=== PATIENT | male | born 1935 | race Caucasian/White ===

== ENCOUNTER 2019-10-30 13:27 | Inpatient (IN) | payer MEDICARE, SELFPAY ==
[2019-10-30] VITALS (7 sets, daily range): BP systolic 122–170; BP diastolic 63–82; PULSE 69–83; RESP 12–21; TEMP 36.3–37.1; O2SAT 96–98; BMI 29.1
--- NOTE | ~2019-10-30 | XR_ITS ---
XR chest 1V DATE: 10/30/2019 14:17 INDICATION: Cough TECHNIQUE: AP chest 08/27/2018 COMPARISON: Two-view chest FINDINGS: Heart size is normal. There is mild aortic tortuosity. No hilar or mediastinal enlargement. Mild atelectasis or fibrotic changes suggested in the lower lung zones. No pleural effusion, pulmonary vascular congestion or pneumothorax is detected. Prominently widened right acromioclavicular space. Moderate osteopenia. There is scoliosis and degene rative spurring of the thoracic and lumbar spine. Surgical clips, right upper quadrant, consistent with cholecystectomy. IMPRESSION: Mild atelectasis or fibrotic change at the lung bases Reviewed, dictated and finalized at location A.
--- NOTE | ~2019-10-30 | CT_ITS ---
EXAMINATION: CT brain wo con INDICATION: Facial droop and slurred speech COMPARISON: 11/28/2013 TECHNIQUE: Standard unenhanced head CT. The dose-length product (DLP) was 605.33 mGy-cm. The mA was a djusted according to patient size. Iterative reconstruction technique was employed. FINDINGS: There is no acute intraparenchymal hemorrhage. No evidence of mass lesion. Areas of low att enuation in the bilateral basal ganglia are consistent with lacunar infarctions.. There is mild periv entricular and subcortical hypodensity probably related to small vessel ischemic disease. There is mi ld prominence of the sulci and ventricles related to cerebral atrophy. Intracranial calcified cerebra l atherosclerosis is noted. There are no extra-axial collections. There is no mass effect or midline shift. Changes in the globes are likely from ocular lens surgery. The visualized sinuses and mastoid air cells are well aerated. IMPRESSION: 1. Areas of prior lacunar infarction in the basal ganglia without definite acute intracranial abnorma lity. 2. Age related findings. Reviewed, dictated and finalized at location A. IMPRESSION: 1. Areas of prior lacunar infarction in the basal ganglia without definite acut e intracranial abnormality. 2. Age related findings.
--- NOTE | ~2019-10-30 | MR_ITS ---
EXAMINATION: MR brain/brain stem wo/w con DATE: 10/31/2019 10:23 INDICATION: Stroke presenting with left sided facial droop and slurred speech TECHNIQUE: Magnetic resonance imaging (MRI) of the brain and brainstem was performed without and with 17 mL Multihance intravenous contrast. Sequences included sagittal and axial T1-weighted SE, axial d iffusion-weighted FS SE, axial T2*-weighted GRE, axial T2-weighted FLAIR, and axial T2-weighted FSE. Postcontrast axial and coronal T1-weighted SE was obtained. Apparent diffusion coefficient (ADC) maps were created. COMPARISON: Brain MR dated 09/01/2011 FINDINGS: Small region of restricted diffusion in the right cruz radiata consistent with acute infarct. There are multiple additional small region of encephalomalacia consistent with chronic lacunar infarcts in the white matter of the bilateral cruz radiata and centrum semiovale, right thalamus, posterior li mb of the left internal capsule and bilateral cerebellar hemispheres. No intracranial hemorrhage or a bnormal intracranial mass lesion. There are scattered areas of nonspecific increased T2-weighted sign al intensity in the cerebral white matter, predominantly involving the deep and periventricular white matter. There are no intraparenchymal signal abnormalities seen on the other pulse sequences. Symmet reagan prominence of the sulci consistent with mild age-appropriate diffuse cerebral volume loss. The v entricles are symmetric and normal in size. There are no abnormal extra-axial fluid collections. Flow voids are seen in the cerebral arteries on the T2-weighted sequences consistent with their expected patency. Changes of bilateral intraocular lens replacement. Mild mucosal thickening the bilateral eth moid sinuses. Small right maxillary sinus. Visualized orbits and soft tissues are unremarkable. There are no areas of abnormal enhancement on the post contrast images. IMPRESSION: 1. Small acute lacunar infarct in the posterior right frontal lobe cruz radiata. 2. Multiple additional scattered small old lacunar infarcts in the bilateral cruz radiata, centrum semiovale, right thalamus, posterior limb of the left internal capsule and bilateral cerebellar hemis pheres. 3. Interval progression of now moderate scattered nonspecific cerebral white matter T2 hyperintensity consistent with chronic small vessel ischemic disease. Reviewed, dictated and finalized at location A. IMPRESSION: 1. Small acute lacunar infarct in the posterior right frontal lobe cruz radia ta. 2. Multiple additional scattered small old lacunar infarcts in the bilateral co caleb radiata, centrum semiovale, right thalamus, posterior limb of the left int ernal capsule and bilateral cerebellar hemispheres. 3. Interval progression of now moderate scattered nonspecific cerebral white ma tter T2 hyperintensity consistent with chronic small vessel ischemic disease.
--- NOTE | ~2019-10-30 | US_ITS ---
EXAMINATION: US carotid duplex BI DATE: 10/31/2019 11:34 INDICATION: CVA TECHNIQUE: Grayscale, color Doppler, and pulsed Doppler images of the cervical carotid arteries were obtained. The degree of vessel stenosis is placed in one of the following categories: normal, <50%, 5 0-69%, >=70% but less than near-occlusion, near-occlusion, or total occlusion. Note that percent sten osis relative to normal distal artery lumen diameter is indirectly measured from velocity measurement s as described by Husam, et al. Radiology 2003; 229:340-346. Notes: Normal: Peak systolic velocity <125 centimeters/sec and no plaque <50%. Peak systolic velocity <125 ( EDV <40; ICA/CCA PSV ratio <2.0; used these factors only a tandem lesions or low cardiac output or co ntralateral disease) 50-69 %: PSV 125-230 (EDV 40-100; ratio 2-4) >= 70% but less than near occlusion: PSV greater than 230 (EDV > 100; ratio> 4.0) Near Occlusion: PSV that is variable; markedly narrowed lumen Occlusion: Absent flow on color/spectral Doppler and no lumen on flores scale. COMPARISON: None. FINDINGS: RIGHT: The right common carotid artery (CCA) peak systolic velocity (PSV) is 102 cm/s. The right internal ca rotid artery (ICA) PSV is 141 cm/s. The right ICA end-diastolic velocity (EDV) is 26 cm/s. The right ICA/CCA PSV ratio is 1.4. The external carotid artery (ECA) PSV is 127 cm/s. There is antegrade flow in the right vertebral artery. LEFT: The left CCA PSV is 109 cm/s. The left ICA PSV is 86 cm/s. The left ICA EDV is 22 cm/s. The left ICA/ CCA PSV ratio is 0.8. The ECA PSV is 81 cm/s. There is antegrade flow in the left vertebral artery. IMPRESSION: 1. 50-69% stenosis in the right internal carotid artery by sonographic criteria. 2. Less than 50% stenosis in the left internal carotid artery by sonographic criteria. Reviewed, dictated and finalized at location A. IMPRESSION: 1. 50-69% stenosis in the right internal carotid artery by sonographic criteria . 2. Less than 50% stenosis in the left internal carotid artery by sonographic cr iteria.
--- NOTE | 2019-10-30 13:28 | ECG_ITS ---
Measurements Intervals [place] Rate: 84 P: 25 NV: 176 QRS: -74 QRSD: 96 T: 62 QT: 338 QTc: 400 Interpretive Statements SINUS RHYTHM LOW QRS VOLTAGE IN PRECORDIAL LEADS LEFT ANTERIOR FASCICULAR BLOCK BASELINE ARTIFACT- I, III, AVR, AVL, AVF, V1 ABNORMAL ECG Electronically Signed On 10-30-2019 15:50:58 CDT by Tommy Kaye D.O.
[2019-10-30 13:58] LABS: Basophils Percent Auto 0.5 % (0.2-1.2); Eosinophils Absolute Auto 0.2 K/mm3 (0-0.3); Eosinophils Percent Auto 2.5 % (0-4.4); Hematocrit 41.9 % (42.0-52.0); Hemoglobin 13.9 g/dL (14.0-18.0); Immature Granulocyte Absolute 0.01 K/mm3 (0.00-0.031); Immature Granulocyte Percent A 0.2 % (0-0.5); Lymphocytes Absolute Auto 1.18 K/mm3 (0.9-3.2); Lymphocytes Percent Auto 19.6 % (18.3-44.2); Mean Corpuscular HGB Conc 33.2 g/dl (32-36); Mean Corpuscular Hemoglobin 31.2 pg (26-34); Mean Corpuscular Volume 94.2 fl (80-100); Monocytes Absolute Auto 0.4 K/mm3 (0.1-0.6); Monocytes Percent Auto 7.3 % (2.6-8.5); Neutrophils Absolute Auto 4.2 K/mm3 (1.3-6.7); Neutrophils Percent Auto 69.9 % (45.5-73.1); Platelet Count Result 205 k/mm3 (150-375); Red Blood Count 4.45 M/mm3 (4.6-6.20); Red Cell Distribution Width 13.8 % (11.5-14.5)
[2019-10-30 14:01] LABS: Glucose Point of Care 114 (65-105)
[2019-10-30 14:08] LABS: Partial Thromboplastin Time 27.5 SECONDS (22.3-36.8); Prothrombin Time 12.8 Seconds (11.1-14.7)
[2019-10-30 14:20] LABS: Alanine Aminotransferase 17 U/L (4-50); Albumin Level 4.3 g/dL (3.5-5.1); Alkaline Phosphatase 40 U/L (38-126); Anion Gap 8 mmol/L (8-16); Aspartate Amino Transferase 22 U/L (17-59); Bilirubin,Total 0.4 mg/dL (0.2-1.3); Blood Urea Nitrogen 21 mg/dL (9-20); Calcium 9.2 mg/dL (8.4-10.2); Carbon Dioxide 23 mmol/L (22-30); Chloride 110 mmol/L (98-107); Creatine Kinase 67 U/L (55-170); Estimated CRCL calculation 55 ml/min; Estimated Glomerular Filt Rate > 60; Glucose 119 mg/dL (75-110); Potassium 4.1 mmol/L (3.4-5.0); Sodium 141 mmol/L (137-145)
[2019-10-30 14:31] LABS: NT Pro B Type Natriuretic Pept 968 PG/ML (5-100); Troponin I 0.014 ng/mL (0.000-0.034)
[2019-10-30 15:11] LABS: Add Urine Microscopic? YES; Appearance Urine Clear (Clear); Bilirubin Urine Negative (Negative); Blood Urine Negative (Negative); Color Urine Yellow (Yellow); Glucose Urine UA Negative (Negative); Ketones Urine Negative (Negative); Leukocyte Esterase Ur Negative LEU/UL (Negative); Mucus Urine Rare /lpf; Nitrate Urine Negative (Negative); Protein Urine Negative (Negative); RBC Urine 0-2 /hpf (0-2); Specific Grav Ur 1.021 (1.001-1.035); Squamous Epithelial Cell Urine Rare /hpf (Few); WBC Urine 0-3 /hpf
--- NOTE | 2019-10-30 15:31 | ED.GENADULT ---
HPI - General Adult General Chief complaint: Neuro Symptoms/Deficit <James Delgado PA-C - Last Filed: 10/30/19 15:40> Stated complaint: left sided facial droop, slurred speech <ABDULAZIZ Diaz Last Filed: 10/30/19 15:40> Time Seen by Provider: 10/30/19 13:34 <ABDULAZIZ Diaz Last Filed: 10/30/19 15:40> Source: patient and family <ABDULAZIZ Diaz Last Filed: 10/30/19 15:40> Mode of arrival: ambulatory <ABDULAZIZ Diaz Last Filed: 10/30/19 15:40> Limitations: no limitations <ABDULAZIZ Diaz Last Filed: 10/30/19 15:40> History of Present Illness HPI narrative: Patient is an 83-year-old male who presents to emergency department for evaluation of possible strokelike symptoms for the last 2 days patient lives at home by himself and family noticed that he was slurring some of his words presents with daughter who believes he may have some slight drooping at the angle of the left mouth. Patient on arrival is alert and oriented x3 denies any vomiting diarrhea chest pain headache dizziness patient denies similar occurrence in the past. Or any recent illness patient otherwise resting comfortably. <ABDULAZIZ Diaz Last Filed: 10/30/19 15:40> Related Data Home medications: Home Medications Medication Instructions Recorded Confirmed PreserVision AREDS-2 2 tablet PO DAILY 02/15/19 02/15/19 Prilosec OTC 20 mg PO USEASDIRECTD 02/15/19 02/15/19 aspirin 81 mg PO DAILY 02/15/19 02/15/19 fenofibrate 160 mg PO DAILY 02/15/19 02/15/19 hydrocodone-acetaminophen 1 - 2 tablet PO Q12H PRN 02/15/19 02/15/19 lorazepam 0.5 mg PO HS 02/15/19 02/15/19 meloxicam 15 mg PO DAILY 02/15/19 02/15/19 metformin 1,500 mg PO DAILY 02/15/19 02/15/19 omega 6-cke-xjl-fish oil [Fish Oil] 1 cap PO DAILY 02/15/19 02/15/19 tamsulosin 0.4 mg PO DAILY 02/15/19 02/15/19 vitamin B complex [B-Complex] 1 tablet PO DAILY 02/15/19 02/15/19 <James Delgado PA-C - Last Filed: 10/30/19 15:40> Allergies/adverse reactions: Allergies Allergy/AdvReac Type Severity Reaction Status Date / Time No Known Allergies Allergy Verified 10/30/19 13:35 <James Delgado PA-C - Last Filed: 10/30/19 15:40> Review of Systems Review of Systems: All systems reviewed & are unremarkable except as noted in HPI and below <James Delgado PA-C - Last Filed: 10/30/19 15:40> [facility] Past Medical History Medical History: Medical History Anxiety Arthritis BPH (benign prostatic hyperplasia) Bronchitis CVA (cerebral vascular accident) No residual DDD (degenerative disc disease) Diabetes mellitus Diverticulosis GERD (gastroesophageal reflux disease) HLD (hyperlipidemia) Kidney stones Left foot drop Macular degeneration PVD (peripheral vascular disease) Right rotator cuff tear Seasonal allergies <James Delgado PA-C - Last Filed: 10/30/19 15:40> Surgical History Surgical History: Surgical History H/O bilateral cataract extraction H/O inguinal hernia repair H/O repair of right rotator cuff History of back surgery X3 Status post laparoscopic cholecystectomy <James Delgado PA-C - Last Filed: 10/30/19 15:40> Social History Social History: Social History Social History: The patient is . He served in the . 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 Leonarda Isbell is his durable power erisa attorney. He wishes to be a full code Smoking packs per day: 3 Smoking cigarettes per day: 60.0 Years smoked: 38 Smoking pack-years: 114.00 Smoking status: Former smoker Tobacco type: cigarettes Alcohol intake: never Substance use: never Gender identity (if verbalized by the patient): Male Spiritual care concerns: No Agree to blood products: Yes <James Delgado
--- NOTE | 2019-10-30 15:47 | PC.NURSE ---
food tray has been ordered
[2019-10-30 15:59] LABS: Glucose Point of Care 74 (65-105)
[2019-10-30] MEDS: LACTATED RINGERS 1,000 ML 75 ML IV CONT (17:00)
--- NOTE | 2019-10-30 18:00 | PM.IMHP ---
H&P: HPI History of Present Illness Date/Time: 10/30/19 18:00 Chief complaint: Neuro symptoms. Narrative: Arnaldo Rowan is a very pleasant 83-year-old male with history of stroke in August 2011 in which he had dysarthria and dysphagia which resolved, type 2 diabetes mellitus, benign prostatic hyperplasia, GERD, and dyslipidemia who presented to the emergency department earlier today via private vehicle from home for evaluation of neuro symptoms. Today his daughter received a phone call from the patient's body stylist, and she expressed concerns that the patient's speech seemed to be a bit slurred. The daughter then went to visit the patient and indeed she did notice slurred speech as well as left-sided mouth droop. With further questioning, the symptoms have been present dating back to Wednesday, as corroborated by his other children. The patient himself has no complaints but does mention that last evening while trying to get out bed and into his crutches, he lost his balance and fell forward onto the bed though he did not suffer any injuries. 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 Review of Systems Review of Systems: Narrative: Twelve systems were reviewed with pertinent positives and negatives as per HPI. No fever, chills, or sweats. No recent cold or flu symptoms. Occasional rhinorrhea. He denies dysphagia and concerns for aspiration. No chest pain or pleuritic pain. He denies cough and shortness of breath. No nausea, vomiting, or diarrhea. No dysuria. He is on long-term narcotics to the chronic pain, mainly in his elbows from walking with forearm crutches for greater than 30 years. As mentioned, he has chronic lower leg weakness and bilateral foot drop, requiring him to wear brace on the left leg. He does have some more movement in his right when compared to the left. Except as documented, all other systems were reviewed and are negative. [facility] Past Medical History Medical History (Updated 10/30/19 @ 22:19 by Verna Jiménez PA-C) Anxiety Arthritis Benign prostatic hyperplasia Bronchitis Cerebrovascular accident (~08/2011) With dysphagia and dysarthria, resolved. 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 With lower extremity weakness and bilateral footdrop. Kidney stones Macular degeneration Seasonal allergies Type 2 diabetes mellitus Surgical History Surgical History (Updated 10/30/19 @ 22:13 by Verna Jiménez PA-C) History of bilateral cataract extraction History of laparoscopic cholecystectomy (~01/2013) History of lumbar surgery History of repair of right rotator cuff (~05/1999) History of right inguinal hernia repair Family History Family History Father Emphysema of lung Colon cancer Mother Heart disease Pacemaker Sibling Parkinson disease Social History Social History (Updated 10/30/19 @ 22:14 by Verna Jiménez PA-C) Social History: Mr. Rowan is and lives in his own home in [place]. He served in the as a young man. 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 He had previously worked as a [employer]. He smoked 2 to 3 packs of cigarettes per day for about 40 years and quit in 1988. He denies alcohol and illicit substance use. His daughter, Leonarda Isbell, is his healthcare power of deputy attorney general and he wishes to be a full code. Smoking packs per day: 3 Smoking cigarettes per day: 60.0 Years smoked: 38 Smoking pack-years: 114.00 Smoking status: Former
[2019-10-30] MEDS: FAMOTIDINE 20 MG/2 ML VIAL IV PUSH (20:12)
[2019-10-30 20:24] LABS: Glucose Point of Care 139 (65-105)
[2019-10-30] MEDS: LORazepam 0.5 MG TABLET PO (22:44)
[2019-10-31] VITALS (9 sets, daily range): BP systolic 137–149; BP diastolic 62–83; PULSE 58–71; RESP 15–18; TEMP 36.4–36.6; O2SAT 97–99
[2019-10-31 05:42] LABS: Hematocrit 36.5 % (42.0-52.0); Hemoglobin 11.9 g/dL (14.0-18.0); Mean Corpuscular HGB Conc 32.6 g/dl (32-36); Mean Corpuscular Hemoglobin 31.2 pg (26-34); Mean Corpuscular Volume 95.5 fl (80-100); Mean Platelet Volume 11.1 fl (7.4-10.4); Platelet Count Result 181 k/mm3 (150-375); Red Blood Count 3.82 M/mm3 (4.6-6.20); Red Cell Distribution Width 13.8 % (11.5-14.5); White Blood Count 4.9 K/mm3 (4.5-10.0)
[2019-10-31 05:55] LABS: Alanine Aminotransferase 14 U/L (4-50); Albumin Level 3.3 g/dL (3.5-5.1); Alkaline Phosphatase 28 U/L (38-126); Anion Gap 2 mmol/L (8-16); Aspartate Amino Transferase 20 U/L (17-59); Bilirubin,Total 0.6 mg/dL (0.2-1.3); Blood Urea Nitrogen 19 mg/dL (9-20); Calcium 8.6 mg/dL (8.4-10.2); Carbon Dioxide 26 mmol/L (22-30); Chloride 110 mmol/L (98-107); Cholesterol 112 mg/dL (0-200); Estimated CRCL calculation 50 ml/min; Estimated Glomerular Filt Rate > 60; Glucose 83 mg/dL (75-110); HDL Direct 39 mg/dL; Magnesium 1.8 mg/dL (1.6-2.3); Potassium 4.3 mmol/L (3.4-5.0); Sodium 138 mmol/L (137-145); Triglycerides 78 mg/dL (<150)
--- NOTE | 2019-10-31 06:00 | ECHO_ITS ---
Patient Info Name: Arnaldo Rowan Age: 83 years : 1935 Gender: Male Ht: 68 in Wt: 191 lbs BSA: 2.06 m2 HR: 59 bpm BP: 149 / 83 mmHg Heart Rhythm: Sinus Rhythm Technical Quality: Good Exam Date: 10/31/2019 11:44 AM Exam Location: [facility] Patient Status: Inpatient Admit Date: 10/30/2019 Staff Ordering Physician: James Delgado PA-C Glove Parts Inspector: Rick Wallace RDCS, RT Attending Provider: Marcia Christian PA-C Referring Physician: Danny BROWN; Exam Type: CA echo doppler color flow Study Info Indications I63.219 - Cerebral infarction due to unspecified occlusion or stenosis of unspecified vertebral arteries Complete two-dimensional, color flow and Doppler transthoracic echocardiogram is performed. Summary 1. Complete two-dimensional, color flow and Doppler transthoracic echocardiogram is performed. 2. Left ventricular systolic function is normal, estimated at 55-60%. 3. There is mildly increased left ventricular wall thickness. 4. The left ventricular diastolic function is grade I diastolic dysfunction. 5. Thin and hypermobile. 6. There is no aortic valve stenosis. 7. There is mild mitral valve regurgitation. 8. Unable to estimate PA systolic pressure due to poor spectral resolution of tricuspid regurgitant jet velocity. Recommendations * Consider SALLY if clinically indicated given history of stroke. Left Ventricle Left ventricular chamber dimension is normal. Left ventricular systolic function is normal, estimated at 55-60%. There is mildly increased left ventricular wall thickness. The left ventricular diastolic function is grade I diastolic dysfunction. Global longitudinal strain is mildly elevated at -14 %. Right Ventricle Right ventricular chamber dimension is normal. Right ventricular systolic function is normal. Left Atria Left atrial chamber dimension is normal. Right Atria Right atrial chamber dimension is normal. Atrial Septum Thin and hypermobile. Aortic Valve The aortic valve is not well visualized. There is mild aortic valve sclerosis. There is no aortic valve stenosis. There is no aortic valve regurgitation. Pulmonic Valve The pulmonic valve is not well visualized. Mitral Valve The mitral valve has normal leaflets. There is mild mitral valve regurgitation. The mitral valve annulus is mildly calcified. Tricuspid Valve The tricuspid valve leaflets are normal. There is trace tricuspid valve regurgitation. Unable to estimate PA systolic pressure due to poor spectral resolution of tricuspid regurgitant jet velocity. Pericardium/Pleural The pericardium appears normal. There is no pericardial effusion. Inferior Vena Cava Normal inferior vena cava with >50% collapse upon inspiration consistent with normal right atrial pressure, 5 mmHg. Aorta The aortic root size at the sinus of Valsalva is normal. Left Ventricular Outflow Tract Name Value Normal LVOT 2D LVOT Diameter 2.4 cm LVOT Doppler LVOT Peak Gradient 3 mmHg LVOT Mean Gradient 1 mmHg LVOT VTI
[2019-10-31 06:03] LABS: Hemoglobin A1C 5.3 % (<5.7)
[2019-10-31 06:05] LABS: LDL Cholesterol Direct 58 mg/dL
[2019-10-31 07:39] LABS: Glucose Point of Care 90 (65-105)
[2019-10-31] MEDS: MELOXICAM 7.5 MG TABLET 15 MG PO (08:06)
[2019-10-31] MEDS: OMEGA 3 POLYUNSAT FATTY ACIDS 1 GM CAP PO (08:06)
[2019-10-31] MEDS: OPTI-GEN TAB 1 TABLET PO (08:06)
[2019-10-31] MEDS: TAMSULOSIN HCL 0.4 MG CAPSULE PO (08:06)
[2019-10-31] MEDS: FENOFIBRATE 160 MG TABLET PO (08:06)
[2019-10-31] MEDS: ASPIRIN 81 MG ENTERIC TABLET PO (08:07)
--- NOTE | 2019-10-31 12:18 | PCSTNOTE ---
Please refer to the Bedside Swallow Evaluation in the EMR. Please note, silent aspiration cannot be ruled out at bedside.
[2019-10-31 12:36] LABS: Glucose Point of Care 105 (65-105)
--- NOTE | 2019-10-31 13:07 | PM.IMPN ---
Progress Note: A&P Assessment and Plan (1) CVA (cerebral vascular accident): Qualifiers: CVA mechanism: unspecified Qualified Code(s): I63.9 - Cerebral infarction, unspecified Code(s): I63.9 - Cerebral infarction, unspecified Status: Chronic Assessment and Plan: Patient with history of CVA in August 2011 presents with a 2-day history of slurred speech and mild left-sided facial droop. MRI brain shows small acute lacunar infarct in the posterior right frontal lobe cruz radiata; along with multiple old KURT lacunar infarcts. Carotid doppler demonstrates moderate right internal carotid stenosis 50-69%; Left is normal at < 50%. Echocardiogram shows normal systolic function, diastolic dysfunction grade I, mild mitral regurg. Consulted neurology and appreciate recommendations. Continue ASA and may consider adding plavix, will await neuro recommendations. (2) Type 2 diabetes mellitus: Qualifiers: Diabetes mellitus ferry terminal supervisor insulin use: without ferry terminal supervisor use Diabetes mellitus complication status: without complication Qualified Code(s): E11.9 - Type 2 diabetes mellitus without complications Code(s): E11.9 - Type 2 diabetes mellitus without complications Status: Acute Assessment and Plan: A1c is 5.3. His home metformin is on hold. Continue to monitor with Accu-cheks and cover with SSI. (3) Dyslipidemia: Code(s): E78.5 - Hyperlipidemia, unspecified Status: Acute Assessment and Plan: Continue fenofibrate and omega-3. Lipid panel within normal limits. (4) Benign prostatic hyperplasia: Qualifiers: Lower urinary tract symptom presence: unspecified whether lower urinary tract symptoms present Qualified Code(s): N40.0 - Benign prostatic hyperplasia without lower urinary tract symptoms Code(s): N40.0 - Benign prostatic hyperplasia without lower urinary tract symptoms Status: Acute Assessment and Plan: Continue tamsulosin. Subjective Date/time seen: 10/31/19 1245 Interval history: Mr. Rowan is a pleasant 83yo M admitted for acute CVA. He is seen this afternoon in follow up with his daughter, Leonarda, at the bedside. He notices that he is still having some slight issues with word-searching and word-slurring but feels it is improved compared to the onset of symptoms this past weekend. He also agrees that it is improved if he slows down his speech. He denies any chest pain, shortness of breath, or palpitations. No nausea or vomiting. His appetite is fine and he is hungry for lunch. Review of Systems Review of Systems: Narrative: Twelve systems were reviewed with pertinent positives and negatives as per HPI. Exam Narrative: Exam Narrative: General: Male resting sitting up in bed in no acute distress, visiting with his daughter. HEENT: Normocephalic, EOMI, oral mucosa moist, very mild left facial droop noted. Cardiovascular: Rate and rhythm are regular. Telemetry review shows sinus rhythm with some PVCs. Respiratory: Lungs clear to auscultation all senior. Non-labored breathing. Abdomen: Soft, non-tender, non-distended, bowel sounds present. Extremities: Peripheral pulses intact. No edema. Neuro: Mild facial asymmetry. He is alert and oriented. Stripper Color strength, upper and lower extremity strength are mildly weaker on the left compared to right. Speech is dysarthric mildly. Objective Data Vital Signs Vital Signs: Last Vital Signs Temp 97.7 F 10/31/19 14:00 Pulse 64 10/31/19 16:00 Resp 16 10/31/19 14:00 BP 144/62 H 10/31/19 14:00 Pulse Ox 97 10/31/19 14:00 Intake/Output Intake/Output: Intake & Output 10/28/19 10/29/19 10/30/19 10/31/19 23:59 23:59 23:59 23:59 Intake Total 440 1680 Output Total 1050 450 Balance -610 1230
[2019-10-31 16:34] LABS: Glucose Point of Care 118 (65-105)
[2019-10-31 21:54] LABS: Glucose Point of Care 118 (65-105)
[2019-10-31] MEDS: LORazepam 0.5 MG TABLET PO (22:12)
[2019-11-01] VITALS: PULSE 63
[2019-11-01 04:00] VITALS: PULSE 64
[2019-11-01 05:34] LABS: Basophils Percent Auto 0.7 % (0.2-1.2); Eosinophils Absolute Auto 0.2 K/mm3 (0-0.3); Eosinophils Percent Auto 3.5 % (0-4.4); Hematocrit 36.9 % (42.0-52.0); Immature Granulocyte Absolute 0.02 K/mm3 (0.00-0.031); Immature Granulocyte Percent A 0.3 % (0-0.5); Lymphocytes Absolute Auto 1.19 K/mm3 (0.9-3.2); Lymphocytes Percent Auto 19.9 % (18.3-44.2); Mean Corpuscular HGB Conc 32.5 g/dl (32-36); Mean Corpuscular Hemoglobin 30.6 pg (26-34); Mean Corpuscular Volume 94.1 fl (80-100); Mean Platelet Volume 11.2 fl (7.4-10.4); Monocytes Absolute Auto 0.4 K/mm3 (0.1-0.6); Neutrophils Absolute Auto 4.1 K/mm3 (1.3-6.7); Neutrophils Percent Auto 68.6 % (45.5-73.1); Platelet Count Result 200 k/mm3 (150-375); Red Blood Count 3.92 M/mm3 (4.6-6.20); Red Cell Distribution Width 13.8 % (11.5-14.5)
[2019-11-01 05:43] LABS: Anion Gap 4 mmol/L (8-16); Blood Urea Nitrogen 18 mg/dL (9-20); Calcium 8.6 mg/dL (8.4-10.2); Carbon Dioxide 24 mmol/L (22-30); Chloride 111 mmol/L (98-107); Estimated CRCL calculation 55 ml/min; Estimated Glomerular Filt Rate > 60; Glucose 95 mg/dL (75-110); Magnesium 1.9 mg/dL (1.6-2.3); Potassium 3.9 mmol/L (3.4-5.0); Sodium 139 mmol/L (137-145)
[2019-11-01 05:57] VITALS: BP 127/53; PULSE 69; RESP 18; TEMP 36.4; O2SAT 97
[2019-11-01 08:00] VITALS: PULSE 69; RESP 18; O2SAT 97
[2019-11-01] MEDS: OMEGA 3 POLYUNSAT FATTY ACIDS 1 GM CAP PO (08:22)
[2019-11-01] MEDS: MELOXICAM 7.5 MG TABLET 15 MG PO (08:23)
[2019-11-01] MEDS: PANTOPRAZOLE 40 MG TABLET PO (08:23)
[2019-11-01] MEDS: TAMSULOSIN HCL 0.4 MG CAPSULE PO (08:23)
[2019-11-01] MEDS: OPTI-GEN TAB 1 TABLET PO (08:23)
[2019-11-01] MEDS: ASPIRIN 81 MG ENTERIC TABLET PO (08:23)
[2019-11-01] MEDS: FENOFIBRATE 160 MG TABLET PO (08:23)
[2019-11-01] MEDS: CLOPIDOGREL BISULFATE 75 MG TABLET PO (10:10)
--- NOTE | 2019-11-01 11:09 | PM.DS ---
DS: Admitting Diagnosis Admitting Diagnosis Admitting Diagnosis: Neuro symptoms. DS: Discharge Diagnosis Discharge Diagnosis (1) CVA (cerebral vascular accident): Qualifiers: CVA mechanism: unspecified Qualified Code(s): I63.9 - Cerebral infarction, unspecified Code(s): I63.9 - Cerebral infarction, unspecified Status: Chronic Assessment and Plan: Date of Admission: 10/30/19 Date of Discharge/DOS: 11/01/19 Mr. Rowan is a very pleasant 83yo M with history of previous CVA, non-insulin dependent type 2 diabetes mellitus, dyslipidemia, and BPH who presented to the ED for evaluation of slurred speech and mild left facial droop. CT brain showed no acute findings however MRI brain demonstrated an acute, small right lacunar infarct. Carotid stenosis on the right is noted. Given his previous CVA in 2011, it was felt he will benefit from starting Plavix for stroke risk reduction. He was evaluated by neurology, Dr Ricardo, and can follow up outpatient with him as needed. He was feeling well, his speech was improved, ambulating well without much residual deficit. He was hemodynamically stable for discharge 11/01/19 with instructions to follow up with PCP this week. Home health for PT/OT/ST arranged. Patient with history of CVA in August 2011 presents with a 2-day history of slurred speech and mild left-sided facial droop. MRI brain shows small acute lacunar infarct in the posterior right frontal lobe cruz radiata; along with multiple old KURT lacunar infarcts. Carotid doppler demonstrates moderate right internal carotid stenosis 50-69%; Left is normal at < 50%. Echocardiogram shows normal systolic function, diastolic dysfunction grade I, mild mitral regurg. Evaluated by neurology and started on Plavix. (2) Type 2 diabetes mellitus: Qualifiers: Diabetes mellitus halfway insulin use: without ad terminal makeup operator use Diabetes mellitus complication status: without complication Qualified Code(s): E11.9 - Type 2 diabetes mellitus without complications Code(s): E11.9 - Type 2 diabetes mellitus without complications Status: Acute Assessment and Plan: A1c is 5.3. His home metformin was held while hospitalized and resumed at discharge. Blood sugars were stable. (3) Dyslipidemia: Code(s): E78.5 - Hyperlipidemia, unspecified Status: Acute Assessment and Plan: Continue fenofibrate and omega-3. Lipid panel within normal limits. (4) Benign prostatic hyperplasia: Qualifiers: Lower urinary tract symptom presence: unspecified whether lower urinary tract symptoms present Qualified Code(s): N40.0 - Benign prostatic hyperplasia without lower urinary tract symptoms Code(s): N40.0 - Benign prostatic hyperplasia without lower urinary tract symptoms Status: Acute Assessment and Plan: Continue tamsulosin. DS: Summary Time Spent with Patient Time attestation: Total time spent providing and/or coordinating discharge services: 35 minutes Exam Narrative: Exam Narrative: General: Male resting sitting up in bed in no acute distress. HEENT: Normocephalic, EOMI, oral mucosa moist, very mild left facial droop noted. Cardiovascular: Rate and rhythm are regular. Telemetry review shows sinus rhythm with some PVCs. Respiratory: Lungs clear to auscultation all senior. Non-labored breathing. Abdomen: Soft, non-tender, non-distended, bowel sounds present. Extremities: Peripheral pulses intact. No edema. Neuro: Mild facial asymmetry. He is alert and oriented. 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 Speech is dysarthric mildly. DS: Data Data Completed and Pending Labs on day of discharge: Last V
[2019-11-01 11:26] LABS: Glucose Point of Care 96 (65-105)
[2019-11-01 11:28] LABS: Glucose Point of Care 116 (65-105)
--- NOTE | 2019-11-01 11:53 | WPDNEURCNPN ---
Assessment and Plan Assessment and plan (1) Neurological symptoms: Code(s): R29.90 - Unspecified symptoms and signs involving the nervous system Status: Acute (2) CVA (cerebral vascular accident): Qualifiers: CVA mechanism: unspecified Qualified Code(s): I63.9 - Cerebral infarction, unspecified Code(s): I63.9 - Cerebral infarction, unspecified Status: Chronic (3) Diabetes mellitus: Code(s): E11.9 - Type 2 diabetes mellitus without complications Status: Chronic Additional Plan complete evaluation then accordingly Consult date: 11/01/19 Time Seen: 11:15 HPI: Arnaldo Rowan is a 83 year old male admitted to the hospital through the emergency room where he was brought by the private vehicle with the complains of neurological symptom. as per the information available the daughter received a phone call from the industrial safety and health manager that his speech was slurred and she did indeed find the speech was slurred as well as left side of the mouth was drooping and also it was reported that symptoms were dating back to Wednesday .the evening before he was trying to get out of the bed lost his balance and fell forward onto his bed by the time he was seen by the hospitalist, was no obvious focal weakness. patient does have chronic lower leg weakness with bilateral foot drop requiring him to wear brace on the left lower extremity and he is on long-term narcotics because the chronic pain mainly his elbows from walking with forearm in crutches for the last more than 30 year Review of Systems Review of Systems: All systems reviewed & are unremarkable except as noted in HPI and below PMFSH Past Medical History Medical History (Updated 10/31/19 @ 16:28 by Marcia Christian PA-C) Anxiety Arthritis Benign prostatic hyperplasia Bronchitis Cerebrovascular accident (~08/2011) With dysphagia and dysarthria, resolved. 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 With lower extremity weakness and bilateral footdrop. Kidney stones Macular degeneration Seasonal allergies Type 2 diabetes mellitus Surgical History Surgical History (Updated 10/30/19 @ 22:13 by Verna Jiménez PA-C) History of bilateral cataract extraction History of laparoscopic cholecystectomy (~01/2013) History of lumbar surgery History of repair of right rotator cuff (~05/1999) History of right inguinal hernia repair Family History Family History Father Emphysema of lung Colon cancer Mother Heart disease Pacemaker Sibling Parkinson disease Social History Social History (Updated 10/30/19 @ 22:14 by Verna Jiménez PA-C) Social History: Mr. Rowan is and lives in his own home in [place]. He served in the as a young man. 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 He had previously worked as a [employer]. He smoked 2 to 3 packs of cigarettes per day for about 40 years and quit in 1988. He denies alcohol and illicit substance use. His daughter, Leonarda Isbell, is his healthcare power of state's attorney and he wishes to be a full code. Smoking packs per day: 3 Smoking cigarettes per day: 60.0 Years smoked: 38 Smoking pack-years: 114.00 Smoking status: Former smoker Tobacco type: cigarettes Alcohol intake: never Substance use: never Gender identity (if verbalized by the patient): Male Spiritual care concerns: No Agree to blood products: Yes Meds Home Medications and Allergies Home Medications Medication Instructions Recorded Confirmed Type PreserVision AREDS-2 1 tablet PO DAILY 02/15/19 10/30/19 History aspirin 81 mg PO DAILY 02/15/19 10/30/19 History fenofibrate 160 mg PO DAILY 02/15/19 10/30/19 History hydrocodone-acetaminophen 1 - 2 tablet PO Q
== END 2019-11-01 13:55 | disposition home health service (06) | DRG 66 ==
LOC: ANHED 15:54 → ANH3MED 16:05
PROVIDERS: Emergency Medicine Emergency Medical Services; Physician Assistant; Admitting Provider Internal Medicine; Emergency Provider Emergency Medicine; PCP Family Medicine Adolescent Medicine; Visit Provider Physician Assistant
DX: I63.9 Cerebral infarction, unspecified (principal); R47.81 Slurred speech; R29.810 Facial weakness; E11.9 Type 2 diabetes mellitus without complications; E78.5 Hyperlipidemia, unspecified; N40.0 Benign prostatic hyperplasia without lower urinary tract symptoms; M19.90 Unspecified osteoarthritis, unspecified site; F41.9 Anxiety disorder, unspecified; K21.9 Gastro-esophageal reflux disease without esophagitis; M21.372 Foot drop, left foot; K57.90 Diverticulosis of intestine, part unspecified, without perforation or abscess without bleeding; H35.30 Unspecified macular degeneration; I73.9 Peripheral vascular disease, unspecified; D64.9 Anemia, unspecified; R29.702 NIHSS score 2; Z86.73 Personal history of transient ischemic attack (TIA), and cerebral infarction without residual deficits; Z98.41 Cataract extraction status, right eye; Z98.42 Cataract extraction status, left eye; Z90.49 Acquired absence of other specified parts of digestive tract; Z87.891 Personal history of nicotine dependence
CPT/HCPCS: 36415; 70450; 70553; 71045; 80048; 80053; 80061; 81001; 82550; 82948; 83036; 83735; 83880; 84484; 85025; 85027; 85610; 85730; 92610; 93005; 93306; 93880; 97110; 97161; 97165; 99285; A9270; A9577; G0378; J7120

== ENCOUNTER 2019-11-21 12:53 | Emergency (ER) | payer MEDICARE, SELFPAY ==
--- NOTE | ~2019-11-21 | CT_ITS ---
EXAMINATION: CT brain wo con EXAM DATE: 11/21/2019 13:41 INDICATION: Aphasia. Slurred speech. TECHNIQUE: Spiral CT of the head was performed without contrast. Axial, coronal and sagittal images were reviewed. The dose-length product (DLP) for this examination was 605.33 mGy-cm. The exposure w as tailored according to patient size, and iterative reconstruction (ASIR) was used as additional dos e reduction technique. Comparison is made to prior examination from 10/30/2019. FINDINGS: There is no acute intraparenchymal hemorrhage. No evidence of intraparenchymal brain mass lesion. No evidence of acute infarction. Please note that initial head CT has limited sensitivity f or small or acute infarctions. Punctate old bilateral periventricular white matter infarctions. Punc noguera old right thalamic lacunar infarction. There is moderate periventricular and subcortical hypode nsity, nonspecific but probably related to small vessel ischemic disease. There is moderate promine nce of the sulci and ventricles related to cerebral atrophy. There is intracranial carotid arterios clerosis. There are no extra-axial collections. There is no mass effect or midline shift. Patient has had bilateral ocular lens surgery. Soft tissue is unremarkable. The visualized sinuses and mast oid air cells are well aerated. IMPRESSION: 1. Punctate old infarctions. 2. Chronic age related findings. Reviewed, dictated and finalized at location A.
[2019-11-21 13:18] VITALS: BP 146/82; BP 163/102; PULSE 77; PULSE 79; RESP 22; TEMP 37.1; O2SAT 100; O2SAT 98
--- NOTE | 2019-11-21 13:18 | ED.NEUROSD ---
HPI - Neuro Symptoms/Deficit General Chief Complaint: Suspected CVA Stated Complaint: CVA? Time Seen by Provider: 11/21/19 13:13 History of Present Illness HPI Narrative: 83 yo male with h/o CVA, a-fib, DM presents from home for aphasia. Seen here on 10/29 for slurred speech and left facial droop. Found to have an acute ischemic stroke with expressive aphasia. Started on plavix. Today he was seen at home for speech therapy and they were concerned because they thought his speech was worse. The patient says that he is not sure if it worse. He denies any numbness, weakness, dizziness, chest pain. Related Data Home Medications Medication Instructions Recorded Confirmed PreserVision AREDS-2 1 tablet PO DAILY 02/15/19 10/30/19 aspirin 81 mg PO DAILY 02/15/19 10/30/19 fenofibrate 160 mg PO DAILY 02/15/19 10/30/19 hydrocodone-acetaminophen 1 - 2 tablet PO Q12H PRN 02/15/19 10/30/19 lorazepam 0.5 mg PO HS 02/15/19 10/30/19 metformin 1,500 mg PO DAILY 02/15/19 10/30/19 omega 5-fry-wvs-fish oil [Fish Oil] 1 cap PO DAILY 02/15/19 10/30/19 omeprazole magnesium [Prilosec OTC] 20 mg PO USEASDIRECTD 02/15/19 10/30/19 tamsulosin 0.4 mg PO DAILY 02/15/19 10/30/19 Allergies Allergy/AdvReac Type Severity Reaction Status Date / Time No Known Allergies Allergy Verified 10/30/19 13:35 Review of Systems Review of Systems: All systems reviewed & are unremarkable except as noted in HPI and below Constitutional: Constitutional: Denies fever(s) and Denies weakness Eyes: Eyes: Denies change in vision ENT: Denies dysphagia and Denies dizziness Cardiovascular: Cardiovascular: Denies chest pain and Denies rapid heart rate Respiratory: Respiratory: Denies dyspnea Gastrointestinal: Gastrointestinal: Denies nausea Genitourinary: Genitourinary: Denies dysuria Neurologic: Denies confusion, Denies dizziness, Denies numbness and Denies weakness PMFSH Past Medical History Medical History Anxiety Arthritis Benign prostatic hyperplasia Bronchitis Cerebrovascular accident (~08/2011) With dysphagia and dysarthria, resolved. 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 With lower extremity weakness and bilateral footdrop. Kidney stones Macular degeneration Seasonal allergies Type 2 diabetes mellitus Surgical History Surgical History History of bilateral cataract extraction History of laparoscopic cholecystectomy (~01/2013) History of lumbar surgery History of repair of right rotator cuff (~05/1999) History of right inguinal hernia repair Family History Family History Father Emphysema of lung Colon cancer Mother Heart disease Pacemaker Sibling Parkinson disease Social History Social History Social History: Mr. Rowan is and lives in his own home in [place]. He served in the as a young man. 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 He had previously worked as a [employer]. He smoked 2 to 3 packs of cigarettes per day for about 40 years and quit in 1988. He denies alcohol and illicit substance use. His daughter, Leonarda Isbell, is his healthcare power of privacy attorney and he wishes to be a full code. Smoking packs per day: 3 Smoking cigarettes per day: 60.0 Years smoked: 38 Smoking pack-years: 114.00 Smoking status: Former smoker Tobacco type: cigarettes Alcohol intake: never Substance use: never Gender identity (if verbalized by the patient): Male Spiritual care concerns: No Agree to blood products: Yes Exam Const: General: healthy appearing, no acute distress and alert Orientation/conscious
[2019-11-21 13:25] VITALS: BP 146/82; PULSE 70; RESP 20; O2SAT 98
--- NOTE | 2019-11-21 13:26 | ECG_ITS ---
Measurements Intervals [place] Rate: 71 P: 15 RI: 168 QRS: -62 QRSD: 111 T: 33 QT: 371 QTc: 404 Interpretive Statements SINUS RHYTHM ATRIAL PREMATURE COMPLEX LEFT ANTERIOR FASCICULAR BLOCK ABNORMAL ECG Electronically Signed On 11-21-2019 14:04:48 CDT by Tommy Kaye D.O.
[2019-11-21 13:31] VITALS: BP 132/60; PULSE 72; RESP 18; O2SAT 98
[2019-11-21 13:58] LABS: Basophils Absolute Auto 0.1 K/mm3 (0.0-0.1); Basophils Percent Auto 1.1 % (0.2-1.2); Eosinophils Absolute Auto 0.2 K/mm3 (0-0.3); Eosinophils Percent Auto 3.2 % (0-4.4); Hematocrit 40.8 % (42.0-52.0); Hemoglobin 13.3 g/dL (14.0-18.0); Immature Granulocyte Absolute 0.03 K/mm3 (0.00-0.031); Immature Granulocyte Percent A 0.4 % (0-0.5); Lymphocytes Absolute Auto 1.53 K/mm3 (0.9-3.2); Lymphocytes Percent Auto 20.5 % (18.3-44.2); Mean Corpuscular HGB Conc 32.6 g/dl (32-36); Mean Corpuscular Hemoglobin 30.7 pg (26-34); Mean Corpuscular Volume 94.2 fl (80-100); Mean Platelet Volume 10.2 fl (7.4-10.4); Monocytes Absolute Auto 0.6 K/mm3 (0.1-0.6); Monocytes Percent Auto 7.4 % (2.6-8.5); Neutrophils Absolute Auto 5.1 K/mm3 (1.3-6.7); Neutrophils Percent Auto 67.4 % (45.5-73.1); Platelet Count Result 338 k/mm3 (150-375); Red Blood Count 4.33 M/mm3 (4.6-6.20); Red Cell Distribution Width 13.8 % (11.5-14.5); White Blood Count 7.5 K/mm3 (4.5-10.0)
[2019-11-21 14:07] LABS: Prothrombin Time 13.1 Seconds (11.1-14.7)
[2019-11-21 14:08] LABS: Partial Thromboplastin Time 29.1 SECONDS (22.3-36.8)
[2019-11-21 14:11] LABS: Anion Gap 8 mmol/L (8-16); Blood Urea Nitrogen 21 mg/dL (9-20); Calcium 9.4 mg/dL (8.4-10.2); Carbon Dioxide 26 mmol/L (22-30); Chloride 106 mmol/L (98-107); Estimated CRCL calculation 50 ml/min; Estimated Glomerular Filt Rate > 60; Glucose 120 mg/dL (75-110); Potassium 4.4 mmol/L (3.4-5.0); Sodium 140 mmol/L (137-145)
[2019-11-21 14:59] LABS: Add Urine Microscopic? YES; Appearance Urine Clear (Clear); Bilirubin Urine Negative (Negative); Blood Urine Negative (Negative); Color Urine Yellow (Yellow); Glucose Urine UA Negative (Negative); Ketones Urine Negative (Negative); Leukocyte Esterase Ur Negative LEU/UL (Negative); Mucus Urine Rare /lpf; Nitrate Urine Negative (Negative); Protein Urine Negative (Negative); RBC Urine 0-2 /hpf (0-2); Specific Grav Ur 1.013 (1.001-1.035); Squamous Epithelial Cell Urine Rare /hpf (Few); WBC Urine 0-3 /hpf
[2019-11-21 15:30] VITALS: BP 127/70; PULSE 66; RESP 17; O2SAT 97
[2019-11-21 16:10] VITALS: BP 131/69; PULSE 69; RESP 23; O2SAT 97
== END 2019-11-21 16:13 | disposition home or self-care (01) ==
PROVIDERS: Emergency Provider Emergency Medicine; PCP Family Medicine Adolescent Medicine
DX: I69.320 Aphasia following cerebral infarction (principal); I48.91 Unspecified atrial fibrillation; E11.9 Type 2 diabetes mellitus without complications; Z79.82 Long term (current) use of aspirin; Z79.84 Long term (current) use of oral hypoglycemic drugs; Z79.02 Long term (current) use of antithrombotics/antiplatelets; M19.90 Unspecified osteoarthritis, unspecified site; N40.0 Benign prostatic hyperplasia without lower urinary tract symptoms; D64.9 Anemia, unspecified; E78.5 Hyperlipidemia, unspecified; K21.9 Gastro-esophageal reflux disease without esophagitis; Z87.442 Personal history of urinary calculi; H35.30 Unspecified macular degeneration; Z98.42 Cataract extraction status, left eye; Z98.41 Cataract extraction status, right eye; Z87.891 Personal history of nicotine dependence; I49.1 Atrial premature depolarization; I44.4 Left anterior fascicular block
CPT/HCPCS: 36415; 70450; 80048; 81001; 85025; 85610; 85730; 93005; 99284

== ENCOUNTER 2019-11-30 17:23 | Emergency (ER) | payer MEDICARE, SELFPAY ==
--- NOTE | ~2019-11-30 | XR_ITS ---
EXAMINATION: XR lumbar spine 2-3V DATE: 11/30/2019 18:27 INDICATION: Low back pain after fall TECHNIQUE: Anteroposterior and lateral views of the lumbar spine, and cone-down lateral view of the l umbosacral junction were obtained. COMPARISON: 02/15/2019 FINDINGS: There are changes of posterior fusion procedure from L3 through L5. No fracture is identifi ed. There are 2 mm of chronic retrolisthesis of L2 on L3. There is moderate to severe intervertebral disc space narrowing throughout the lumbar spine. Degenerative osteophytes project from the anterior endplates of multiple vertebral bodies. IMPRESSION: 1. Changes of posterior fusion and severe lumbar spondylosis without acute findings. Reviewed, dictated and finalized at location A. IMPRESSION: 1. Changes of posterior fusion and severe lumbar spondylosis without acute find ings.
--- NOTE | ~2019-11-30 | XR_ITS ---
EXAMINATION: XR elbow RT min 3V INDICATION: Right elbow pain after fall, initial encounter TECHNIQUE: Four views of the right elbow were obtained. 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 There appears to be anterior subluxation of the radial head with respect to the distal humerus. An elbow joint effusion is present. There are fin dings suggestive of prior radial head fracture without definite acute fracture seen. IMPRESSION: 1. Apparent anterior subluxation of the radial head with respect to the distal humerus. Reviewed, dictated and finalized at location A.
--- NOTE | ~2019-11-30 | CT_ITS ---
EXAMINATION: CT brain wo con INDICATION: Head injury, patient on blood thinners COMPARISON: 11/21/2019 TECHNIQUE: Standard unenhanced head CT. The dose-length product (DLP) was 605.33 mGy-cm. The mA was a djusted according to patient size. Iterative reconstruction technique was employed. FINDINGS: There is no acute intraparenchymal hemorrhage. No evidence of mass lesion. No evidence of a cute infarction. There are areas of prior infarction in the basal ganglia and right thalamus. There i s mild periventricular and subcortical hypodensity probably related to small vessel ischemic disease. There is mild prominence of the sulci and ventricles related to cerebral atrophy. Intracranial calci fied cerebral atherosclerosis is noted. There are no extra-axial collections. There is no mass effect or midline shift. Changes in the globes are likely from ocular lens surgery. The visualized sinuses and mastoid air cells are well aerated. IMPRESSION: 1. No acute intracranial abnormality. 2. Age related findings. Reviewed, dictated and finalized at location A.
[2019-11-30 17:22] VITALS: BP 139/66; PULSE 81; RESP 21; TEMP 37.1; O2SAT 97
--- NOTE | 2019-11-30 18:30 | ED.FALL ---
HPI - Fall General Chief Complaint: Fall <Britt Florentino PA-C - Last Filed: 11/30/19 21:42> Stated Complaint: fall - hip pain, back pain <Britt Florentino PA-C - Last Filed: 11/30/19 21:42> Source: patient <Britt Florentino PA-C - Last Filed: 11/30/19 21:42> Mode of arrival: EMS <Britt Florentino PA-C - Last Filed: 11/30/19 21:42> Limitations: no limitations <Britt Florentino PA-C - Last Filed: 11/30/19 21:42> History of Present Illness HPI Narrative: Patient presents for evaluation after a fall that he had last night onto a scooter charging battery. Patient states that he had a stroke on which has left him with some lower extremity weakness and he is working with physical therapy to become better with ambulating. He states because of this he fell onto a scooter charging better yesterday hitting his lower back and his right elbow as well as the right side of his head. Patient denies loss of consciousness, changes in vision or hearing. He reports tenderness to the right frontal scalp. He denies laying for prolonged period of time he states he was able to get himself right up right away. Patient also reports pain to his lower lumbar area. Patient states that he did not seek evaluation immediately because he thought that he was okay but as time has progressed overnight and throughout the day his pain has become more pronounced in his low back so his daughter called EMS for evaluation. Patient is on Plavix as well as a daily baby aspirin. Patient denies any abdominal pain, chest pain, shortness of breath, fever, chills, cough, nausea, vomiting, diarrhea or any other concerns. <Britt Florentino PA-C - Last Filed: 11/30/19 21:42> Related Data Home Medications: Home Medications Medication Instructions Recorded Confirmed PreserVision AREDS-2 1 tablet PO DAILY 02/15/19 10/30/19 aspirin 81 mg PO DAILY 02/15/19 10/30/19 fenofibrate 160 mg PO DAILY 02/15/19 10/30/19 hydrocodone-acetaminophen 1 - 2 tablet PO Q12H PRN 02/15/19 10/30/19 lorazepam 0.5 mg PO HS 02/15/19 10/30/19 metformin 1,500 mg PO DAILY 02/15/19 10/30/19 omega 8-jqu-bdz-fish oil [Fish Oil] 1 cap PO DAILY 02/15/19 10/30/19 omeprazole magnesium [Prilosec OTC] 20 mg PO USEASDIRECTD 02/15/19 10/30/19 tamsulosin 0.4 mg PO DAILY 02/15/19 10/30/19 <Britt Florentino PA-C - Last Filed: 11/30/19 21:42> Allergies/Adverse Reactions: Allergies Allergy/AdvReac Type Severity Reaction Status Date / Time No Known Allergies Allergy Verified 10/30/19 13:35 <Britt Florentino PA-C - Last Filed: 11/30/19 21:42> Review of Systems Review of Systems: Narrative: CONSTITUTIONAL: Denies fever, chills, or sweats. EYES: Denies visual changes, redness, or discharge. ENT: Denies rhinorrhea, congestion, sore throat, or otalgia. CARDIOVASCULAR: Denies chest pain, palpitations, or edema. RESPIRATORY: Denies cough or dyspnea. GASTROINTESTINAL: Denies abdominal pain, nausea, vomiting, or diarrhea. GENITOURINARY: Denies dysuria or hematuria. SKIN: Denies rash or itching. MUSCULOSKELETAL: Reports back pain and elbow pain NEUROLOGIC: Reports head contusion denies loss of consciousness, confusion, headache, numbness, dizziness, or weakness. PSYCHIATRIC: Denies anxiety or depression. <Britt Florentino PA-C - Last Filed: 11/30/19 21:42> [facility] Past Medical History Medical History: Medical History (Updated 11/30/19 @ 21:27 by Britt Florentino PA-C) Anxiety Arthritis Benign prostatic hyperplasia Bronchitis Cerebrovascular accident (~08/2011) With dysphagia and dysarthria, resolved. 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 With lower extremity weakness and bilateral footdrop. Kidney stones Macular degeneration Seasonal allergies Type 2 diabetes mellitus <Britt Florentino PA-C - Last
[2019-11-30] MEDS: HYDROcodone/acetaminophen (*CRX) 5-325 MG TABLET 1 TAB PO (18:46)
[2019-11-30 18:47] VITALS: BP 140/66; PULSE 83; RESP 22; O2SAT 96
[2019-11-30 21:54] VITALS: BP 131/86; PULSE 84; RESP 16; TEMP 36.8; O2SAT 97
== END 2019-11-30 21:54 | disposition home or self-care (01) ==
PROVIDERS: Emergency Provider Emergency Medicine; PCP Family Medicine Adolescent Medicine
DX: S00.83XA Contusion of other part of head, initial encounter (principal); S33.5XXA Sprain of ligaments of lumbar spine, initial encounter; S53.491A Other sprain of right elbow, initial encounter; F41.9 Anxiety disorder, unspecified; N40.0 Benign prostatic hyperplasia without lower urinary tract symptoms; D64.9 Anemia, unspecified; E78.5 Hyperlipidemia, unspecified; K21.9 Gastro-esophageal reflux disease without esophagitis; H35.30 Unspecified macular degeneration; E11.9 Type 2 diabetes mellitus without complications; I69.959 Hemiplegia and hemiparesis following unspecified cerebrovascular disease affecting unspecified side; M19.90 Unspecified osteoarthritis, unspecified site; M47.816 Spondylosis without myelopathy or radiculopathy, lumbar region; Z98.1 Arthrodesis status; Z79.84 Long term (current) use of oral hypoglycemic drugs; Z79.82 Long term (current) use of aspirin; Z87.442 Personal history of urinary calculi; W01.198A Fall on same level from slipping, tripping and stumbling with subsequent striking against other object, initial encounter; Z98.42 Cataract extraction status, left eye; Z98.41 Cataract extraction status, right eye; Z87.891 Personal history of nicotine dependence; Z79.02 Long term (current) use of antithrombotics/antiplatelets
CPT/HCPCS: 29105; 70450; 72100; 73080; 99284; A4565; A9270

== ENCOUNTER 2020-01-12 09:35 | Outpatient (RCR) | payer MEDICARE, SELFPAY ==
--- NOTE | 2020-01-12 11:35 | PCPTNOTE ---
Patient:Arnaldo Rowan Date of :1935 [facility] you [facility]. The patient has been evaluated for wheelchair seating and recommendations have been made, with assistance of the DME provider, Edinson from [employer], present. The findings have been scanned into the patient's EMR. Please review, sign, date and return this recognition of care provided. I agree with and certify that the following plan for DME equipment is medically necessary.
== END 2020-01-15 12:02 | disposition home or self-care (01) ==
LOC: ANHPT 09:35
PROVIDERS: PCP Family Medicine Adolescent Medicine; Visit Provider Family Medicine Adolescent Medicine
DX: G82.20 Paraplegia, unspecified (principal); M19.021 Primary osteoarthritis, right elbow; M19.022 Primary osteoarthritis, left elbow
CPT/HCPCS: 97163

== ENCOUNTER 2020-06-12 17:32 | Emergency (ER) | payer MEDICARE, SELFPAY ==
--- NOTE | ~2020-06-12 | XR_ITS ---
XR knee RT 3V 06/12/2020 18:32 Indication: Right knee pain Procedure: 3 views of the right knee Comparison: No prior studies for comparison. Findings: There is mild osteoarthritis of the right knee. There is chondrocalcinosis. No acute fractu re, subluxation or dislocation. There is prepatellar soft tissue swelling. Impression: 1: No acute fracture. 2: Prepatellar soft tissue swelling. Consider posttraumatic change and bursitis in the appropriate cl inical setting. 3: Chondrocalcinosis. Reviewed, dictated and finalized at location A. Impression: 1: No acute fracture. 2: Prepatellar soft tissue swelling. Consider posttraumatic change and bursitis in the appropriate clinical setting. 3: Chondrocalcinosis.
--- NOTE | ~2020-06-12 | XR_ITS ---
XR shoulder LT min 2V 06/12/2020 18:32 Indication: Left shoulder pain. No acute injury. Procedure: 3 views left shoulder Comparison: No prior studies for comparison. Findings: No acute fracture is identified. There is mild polyarticular osteoarthritis. Osteopenia. No focal soft tissue abnormality. There is left basilar airspace disease, partially visualized. Impression: 1: No acute fracture. 2: Left basilar airspace disease may represent atelectasis or pneumonia. 3: Mild polyarticular osteoarthritis. Reviewed, dictated and finalized at location A. Impression: 1: No acute fracture. 2: Left basilar airspace disease may represent atelectasis or pneumonia. 3: Mild polyarticular osteoarthritis.
[2020-06-12 17:35] VITALS: BP 147/70; PULSE 80; RESP 16; TEMP 36.2; O2SAT 98
--- NOTE | 2020-06-12 17:41 | ED.GENADULT ---
HPI - General Adult General Chief complaint: Extremity Injury, Upper Stated complaint: left shoulder and right knee pain Time Seen by Provider: 06/12/20 17:40 History of Present Illness HPI narrative: Patient is an 84-year-old male who comes to the ED today complaining of pain in left shoulder and some swelling in his right knee. Reports the left shoulder pain was first noticed yesterday morning as he was getting out of bed. There was no mechanism of injury. Pain is made worse with any movements of his shoulder and reports that range of motion of shoulder is significantly reduced due to the pain. He has no pain at rest. There is no radiating pain. There is no numbness or tingling. No edema. Also has a lump on R knee about 3-4 days ago. There was no mechanism injury for this as well. He says this does not really bother him and would not be in the ED tonight it was not for his shoulder. Here with Daughter lives by himself He is in a motorized rider at home that sounds like a wheelchair. Has home health nurse. Related Data Home Medications Medication Instructions Recorded Confirmed PreserVision AREDS-2 1 tablet PO DAILY 02/15/19 01/17/20 aspirin 81 mg PO DAILY 02/15/19 01/17/20 fenofibrate 160 mg PO DAILY 02/15/19 01/17/20 hydrocodone-acetaminophen 1 - 2 tablet PO Q12H PRN 02/15/19 12/06/19 lorazepam 0.5 mg PO HS 02/15/19 01/17/20 metformin 1,500 mg PO DAILY 02/15/19 01/17/20 omega 1-rjr-rzx-fish oil [Fish Oil] 1 cap PO DAILY 02/15/19 01/17/20 omeprazole magnesium [Prilosec OTC] 20 mg PO USEASDIRECTD 02/15/19 01/17/20 tamsulosin 0.4 mg PO DAILY 02/15/19 01/17/20 Allergies Allergy/AdvReac Type Severity Reaction Status Date / Time No Known Allergies Allergy Verified 10/30/19 13:35 Review of Systems Constitutional: Constitutional: Reports as per HPI, Denies fever(s), Denies night sweats and Denies weakness Cardiovascular: Cardiovascular: Denies chest pain, Denies edema, Denies leg edema, Denies dyspnea and Denies orthopnea Respiratory: Respiratory: Denies cough and Denies dyspnea Gastrointestinal: Gastrointestinal: Denies abdominal pain, Denies constipation, Denies diarrhea, Denies nausea and Denies vomiting Musculoskeletal: Musculoskeletal: Denies numbness and Denies tingling Comments: See HPI Neurologic: Denies Abnormal speech present, Denies abnormal gait, Denies numbness, Denies tingling and Denies weakness Psychiatric: Psychiatric: Denies homicidal ideation and Denies suicidal ideation [facility] Past Medical History Medical History (Updated 06/12/20 @ 19:56 by Kana Fletcher PA-C) Anxiety Arthritis Arthritis of right elbow Benign prostatic hyperplasia Bronchitis Cerebrovascular accident (~08/2011) With dysphagia and dysarthria, resolved. 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 With lower extremity weakness and bilateral footdrop. Kidney stones Macular degeneration Seasonal allergies Type 2 diabetes mellitus Surgical History Surgical History History of bilateral cataract extraction History of laparoscopic cholecystectomy (~01/2013) History of lumbar surgery History of repair of right rotator cuff (~05/1999) History of right inguinal hernia repair Family History Family History Father Emphysema of lung Colon cancer Mother Heart disease Pacemaker Sibling Parkinson disease Social History Social History Social History: Mr. Rowan is and lives in his own home in [place]. He served in the as a young man. 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 He smoked 2 to 3 packs of ci
[2020-06-12] MEDS: KETOROLAC 30 MG/ML VIAL (*BKC) IM (18:08)
[2020-06-12 19:16] LABS: Basophils Percent Auto 0.5 % (0.2-1.2); Eosinophils Absolute Auto 0.2 K/mm3 (0-0.3); Eosinophils Percent Auto 2.2 % (0-4.4); Hematocrit 40.9 % (42.0-52.0); Hemoglobin 13.4 g/dL (14.0-18.0); Immature Granulocyte Absolute 0.02 K/mm3 (0.00-0.031); Immature Granulocyte Percent A 0.3 % (0-0.5); Lymphocytes Percent Auto 14.3 % (18.3-44.2); Mean Corpuscular HGB Conc 32.8 g/dl (32-36); Mean Corpuscular Hemoglobin 30.5 pg (26-34); Mean Corpuscular Volume 93.2 fl (80-100); Mean Platelet Volume 9.8 fl (7.4-10.4); Monocytes Absolute Auto 0.6 K/mm3 (0.1-0.6); Monocytes Percent Auto 7.3 % (2.6-8.5); Neutrophils Absolute Auto 5.8 K/mm3 (1.3-6.7); Neutrophils Percent Auto 75.4 % (45.5-73.1); Platelet Count Result 238 k/mm3 (150-375); Red Blood Count 4.39 M/mm3 (4.6-6.20); White Blood Count 7.7 K/mm3 (4.5-10.0)
[2020-06-12 19:24] LABS: INR 0.9; Prothrombin Time 13.2 Seconds (11.1-14.7)
[2020-06-12 19:26] LABS: Anion Gap 8 mmol/L (8-16); Blood Urea Nitrogen 23 mg/dL (9-20); Calcium 9.3 mg/dL (8.4-10.2); Carbon Dioxide 25 mmol/L (22-30); Chloride 107 mmol/L (98-107); Estimated CRCL calculation 54 ml/min; Estimated Glomerular Filt Rate > 60; Glucose 134 mg/dL (75-110); Potassium 4.1 mmol/L (3.4-5.0); Sodium 140 mmol/L (137-145)
[2020-06-12 19:29] LABS: CRP 1.6 mg/dL (<1.0)
[2020-06-12 19:41] LABS: Erythrocyte Sedimentation Rate 19 mm/hr (0-20)
[2020-06-12 20:10] VITALS: BP 152/73; PULSE 69; RESP 16; O2SAT 94
== END 2020-06-12 20:28 | disposition home or self-care (01) ==
PROVIDERS: Physician Assistant Medical; Emergency Provider Emergency Medicine; PCP Family Medicine Adolescent Medicine
DX: M25.512 Pain in left shoulder (principal); M70.41 Prepatellar bursitis, right knee; N40.0 Benign prostatic hyperplasia without lower urinary tract symptoms; Z86.73 Personal history of transient ischemic attack (TIA), and cerebral infarction without residual deficits; K57.90 Diverticulosis of intestine, part unspecified, without perforation or abscess without bleeding; E78.5 Hyperlipidemia, unspecified; H35.30 Unspecified macular degeneration; K21.9 Gastro-esophageal reflux disease without esophagitis; Z87.442 Personal history of urinary calculi; E11.9 Type 2 diabetes mellitus without complications; M19.021 Primary osteoarthritis, right elbow; F41.9 Anxiety disorder, unspecified; Z79.84 Long term (current) use of oral hypoglycemic drugs; Z79.82 Long term (current) use of aspirin; Z98.42 Cataract extraction status, left eye; Z98.41 Cataract extraction status, right eye; Z87.891 Personal history of nicotine dependence
CPT/HCPCS: 36415; 73030; 73562; 80048; 85025; 85610; 85652; 86140; 96372; 99284; J1885

== ENCOUNTER → 2020-10-25 11:03 | Outpatient (CLI) | payer MEDICARE, SELFPAY ==
--- NOTE | ~2020-10-25 | XR_ITS ---
EXAMINATION: XR chest 2V DATE: 10/25/2020 12:23 INDICATION: Bronchitis TECHNIQUE: frontal and lateral views of the chest were obtained. COMPARISON: Chest radiograph dated 10/30/2019 FINDINGS: Unchanged linear opacity lateral left lung base corresponding to a lingular atelectasis/scarring on p rior CT. Mild bronchial wall thickening is seen in the infrahilar regions on the lateral projection c onsistent with given history of bronchitis. No other airspace opacities, pulmonary edema, pleural eff usion or pneumothorax. The cardiomediastinal silhouette is within normal limits for AP technique. Dis colton right clavicle resection. Moderate right and mild left glenohumeral osteoarthritis. Moderate thor acic spondylosis with chronic mild anterior wedging of a couple lower thoracic vertebral bodies. IMPRESSION: 1. Mild infrahilar bronchial wall thickening consistent with given history of bronchitis. 2. Chronic linear atelectasis/scarring at the lingula. Reviewed, dictated and finalized at location A. IMPRESSION: 1. Mild infrahilar bronchial wall thickening consistent with given history of b ronchitis. 2. Chronic linear atelectasis/scarring at the lingula.
== END ==
PROVIDERS: PCP Family Medicine Adolescent Medicine; Visit Provider Family Medicine Adolescent Medicine
DX: R91.8 Other nonspecific abnormal finding of lung field (principal); J47.9 Bronchiectasis, uncomplicated
CPT/HCPCS: 71046

== ENCOUNTER 2020-12-24 15:43 | Outpatient (CLI) | payer MEDICARE, SELFPAY ==
--- NOTE | ~2020-12-24 | US_ITS ---
EXAMINATION: US carotid duplex BI EXAM DATE: 12/24/2020 17:01 INDICATION: Bilateral carotid stenosis. TECHNIQUE: Grayscale, color and pulsed Doppler images of the cervical carotid arteries were obtained . The degree of vessel stenosis is placed in one of the following categories: normal, <50% stenosis, 50-69% stenosis, >=70% stenosis but less than near-occlusion, near-occlusion, or occlusion. Note that percent stenosis relative to normal distal artery lumen diameter is indirectly measured from velocit y measurements as described by Husam, et al. Radiology 2003; 229:340-346. Comparison is made to prior examination from 10/31/2019. FINDINGS: RIGHT SIDE: Right common carotid artery peak systolic velocity (PSV in cm/s): 95 Right bulb/internal carotid artery peak systolic velocity (PSV in cm/s): 178 Right internal carotid artery end diastolic velocity (EDV in cm/s): 42 Right ICA/CCA peak systolic ratio: 2.0 Right external carotid artery peak systolic velocity (PSV in cm/s): 93 Right vertebral artery antegrade flow: yes Moderate bilateral carotid bulb plaque with elevated velocity corresponding to estimated stenosis 50- 69%. LEFT SIDE: Left common carotid artery peak systolic velocity (PSV in cm/s): 85 Left bulb/internal carotid artery peak systolic velocity (PSV in cm/s): 79 Left internal carotid artery end diastolic velocity (EDV in cm/s): 20 Left ICA/CCA peak systolic ratio: 0.9 Left external carotid artery peak systolic velocity (PSV in cm/s): 61 Left vertebral artery antegrade flow: yes There is mild to moderate carotid bulb plaque. Velocity and Doppler waveforms in the common and internal carotid arteries is normal. IMPRESSION: 1. 50-69% stenosis right internal carotid artery. 2. Less than 50 percent stenosis in the left internal carotid artery. Reviewed, dictated and finalized at location A.
== END 2020-12-24 15:44 | disposition home or self-care (01) ==
PROVIDERS: PCP Family Medicine Adolescent Medicine; Visit Provider Physician Assistant
DX: I65.23 Occlusion and stenosis of bilateral carotid arteries (principal)
CPT/HCPCS: 93880

== ENCOUNTER 2021-01-28 17:00 | Emergency (ER) | payer MEDICARE, SELFPAY ==
--- NOTE | ~2021-01-28 | XR_ITS ---
EXAMINATION: XR chest 2V EXAM DATE: 01/28/2021 17:45 INDICATION: Cough and positive COVID. TECHNIQUE: Frontal and lateral projections of the chest obtained and reviewed. Comparison is made to prior examination from 10/25/2020. FINDINGS: Bibasilar pneumonia or atelectasis and small pleural effusions. The lungs are otherwise cl ear. Mild cardiomegaly. No pneumothorax. There are bony degenerative changes. IMPRESSION: 1. Scattered bibasilar atelectasis an/or pneumonia. 2. Small pleural effusions. Reviewed, dictated and finalized at location A. ICAL INTELLIGENCE OFFICER
[2021-01-28 17:13] VITALS: BP 156/74; PULSE 77; RESP 24; TEMP 36.8; O2SAT 100
--- NOTE | 2021-01-28 17:48 | ED.URI ---
HPI - URI/Sore Throat General Chief Complaint: Upper Respiratory Infection Stated Complaint: Cough Source: patient, family and RN notes reviewed Mode of arrival: ambulatory Limitations: no limitations History of Present Illness HPI Narrative: Arnaldo is an 85-year-old male patient who presented to the [facility] with cough and congestion for the last 3 days. Patient's grandson is positive for Covid. Patient has a past history of COPD. Patient has a past history of smoking for 50 cigarettes/day and has a long history of COPD MD elicited complaint: cough Related Data Home Medications Medication Instructions Recorded Confirmed aspirin 81 mg PO DAILY 02/15/19 01/28/21 fenofibrate 160 mg PO DAILY 02/15/19 01/28/21 hydrocodone-acetaminophen 1 tablet PO BID PRN 02/15/19 01/28/21 lorazepam 0.5 mg PO BID 02/15/19 01/28/21 metformin 1,500 mg PO DAILY 02/15/19 01/28/21 clopidogrel 75 mg PO DAILY 01/28/21 01/28/21 Allergies Allergy/AdvReac Type Severity Reaction Status Date / Time No Known Allergies Allergy Verified 01/28/21 17:03 Review of Systems Review of Systems: CONSTITUTIONAL: Denies body aches, fever, chills, or sweats. EYES: Denies visual changes, redness, or discharge. ENT: + rhinorrhea,denies congestion, sore throat, or otalgia. CARDIOVASCULAR: Denies chest pain, palpitations, or edema. RESPIRATORY: + cough or dyspnea. GASTROINTESTINAL: Denies abdominal pain, nausea, vomiting, or diarrhea. GENITOURINARY: Denies dysuria or hematuria. SKIN: Denies rash, itching, or wounds. MUSCULOSKELETAL: Denies back pain, joint pain, or myalgia. NEUROLOGIC: Denies headache, numbness, tingling, or weakness. PSYCH: Denies depression or anxiety. All systems reviewed & are unremarkable except as noted in HPI and below PMFSH Past Medical History Medical History Anxiety Arthritis Arthritis of right elbow Benign prostatic hyperplasia Bronchitis Cerebrovascular accident (~08/2011) With dysphagia and dysarthria, resolved. 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 With lower extremity weakness and bilateral footdrop. Kidney stones Macular degeneration Prepatellar bursitis, right knee Seasonal allergies Type 2 diabetes mellitus Surgical History Surgical History History of bilateral cataract extraction History of laparoscopic cholecystectomy (~01/2013) History of lumbar surgery History of repair of right rotator cuff (~05/1999) History of right inguinal hernia repair Family History Family History Father Emphysema of lung Colon cancer Mother Heart disease Pacemaker Sibling Parkinson disease Social History Social History Social History: Mr. Rowan is and lives in his own home in [place]. He served in the as a young man. 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 He smoked 2 to 3 packs of cigarettes per day for about 40 years and quit in 1988. He denies alcohol and illicit substance use. His daughter, Leonarda Isbell, is his healthcare power of insurance attorney and he wishes to be a full code. Smoking packs per day: 3 Smoking cigarettes per day: 60.0 Years smoked: 38 Smoking pack-years: 114.00 Smoking status: Former smoker Tobacco type: cigarettes Alcohol intake: never Substance use: never Gender identity (if verbalized by the patient): Male Spiritual care concerns: No Agree to blood products: Yes Comments At time of signature, I have reviewed and agree with nursing past medical, surgical, social and family history unless otherwise no
[2021-01-28 18:00] VITALS: PULSE 80; O2SAT 97
--- NOTE | 2021-01-28 18:24 | PC.NURSE ---
1755-- family requesting that pt be transferred to [facility] in [place] and arrangements being made for that. INSURANCE SALESPERSON speaking with er and talking to Beverly RODRIGUEZ, pt signed cobra sheet, and then he and daughter are getting things ready to load into private vehicle.
== END 2021-01-28 18:09 | disposition short-term general hospital (02) ==
PROVIDERS: Emergency Provider Nurse Practitioner Family; PCP Family Medicine Adolescent Medicine
DX: U07.1 COVID-19 (principal); E11.9 Type 2 diabetes mellitus without complications; H35.30 Unspecified macular degeneration; G82.22 Paraplegia, incomplete; D75.9 Disease of blood and blood-forming organs, unspecified; K21.9 Gastro-esophageal reflux disease without esophagitis; E78.5 Hyperlipidemia, unspecified; Z86.73 Personal history of transient ischemic attack (TIA), and cerebral infarction without residual deficits; M19.021 Primary osteoarthritis, right elbow; N40.0 Benign prostatic hyperplasia without lower urinary tract symptoms; F41.9 Anxiety disorder, unspecified; Z79.82 Long term (current) use of aspirin
CPT/HCPCS: 71046; 87426; 99213; C9803; G0463

== ENCOUNTER 2021-03-13 02:08 | Emergency (ER) | payer MEDICARE, SELFPAY ==
--- NOTE | ~2021-03-13 | CT_ITS ---
EXAMINATION: CT cervical spine wo con DATE: 03/13/2021 02:35 INDICATION: Fall. Head and neck injury. TECHNIQUE: Computed tomography (CT) of the cervical spine was performed without intravenous contrast. Automated exposure control and iterative reconstruction technique were employed. Exam dose: 438.51 mGy-cm total exam DLP. COMPARISON: None FINDINGS: Diffuse osteopenia. Moderate degenerative disc disease and mild anterolisthesis at C3-4 and C4-5. There is severe degenerative disc disease and mild retrolisthesis at C5-6 and C6-7. There is 3 mm anterolisthesis and moderate degenerative disc disease at C7-T1. There is mild anteroli sthesis at T1-2 and T2-3. There is extensive degenerative change at the apophyseal joints throughout the cervical spine. There is prominent uncovertebral joint spurring throughout the cervical spine, particularly severe at C5-6 and C6-7. No fracture or dislocation or locked facet or prevertebral soft tissue swelling is detected. Emphysematous changes are noted in the upper lung zones and probable chronic right upper lobe scarrin g. Aortic arch measures up to 3 cm diameter, borderline size.. IMPRESSION: Extensive cervical spondylosis: No fracture is detected Reviewed, dictated and finalized at Location A. Reviewed, dictated and finalized at location A. TED PHYSICAL EDUCATION TEACHER
--- NOTE | ~2021-03-13 | CT_ITS ---
EXAMINATION: CT brain wo con DATE: 03/13/2021 02:35 INDICATION: Head injury. Fall from motor scooter. TECHNIQUE: Computed tomography (CT) of the head was performed without intravenous contrast. The mA wa s adjusted according to patient size. Iterative reconstruction technique was employed. Exam dose: 68 1.00 mGy-cm total exam DLP. COMPARISON: 12/12/2019 CT brain FINDINGS: Bilateral old cerebellar infarcts. Chronic lacunar infarcts of the right thalamus and basal ganglia and periventricular area. Small chronic infarct of the left frontal area. Dominant right vertebral artery and basilar artery and prominent bilateral carotid siphon internal ca rotid artery calcifications. Prominent patchy diminished attenuation of the subcortical and periventricular cerebral white matter, likely due to chronic small vessel ischemic changes. No intracranial mass lesion or hemorrhage or recent cerebrovascular accident is evident. No midline s hift or mass effect effect. No subdural or epidural hematoma is detected. No fracture or bone destruction of the cranial vault. Small mucus retention cyst or polyp in the floor of the right maxillary sinus. The paranasal sinuses and mastoid air cells are otherwise unremarkable. IMPRESSION: No skull fracture or acute intracranial finding Cerebral atherosclerosis and chronic small vessel ischemic changes of the cerebral white matter Chronic cerebellar, right thalamic basal ganglia and periventricular infarcts Reviewed, dictated and finalized at Location A. Reviewed, dictated and finalized at location A. OFILM DUPLICATING UNIT SUPERVISOR IMPRESSION: No skull fracture or acute intracranial finding Cerebral atherosclerosis and chronic small vessel ischemic changes of the cereb ral white matter Chronic cerebellar, right thalamic basal ganglia and periventricular infarcts
[2021-03-13 02:09] VITALS: BP 114/68; PULSE 90; RESP 18; TEMP 36.7; O2SAT 98
[2021-03-13] MEDS: TETANUS,DIPHTHERIA,AC PERTUSSIS ADULT (0.5 ML) BOOSTRIX IM (02:18)
--- NOTE | 2021-03-13 02:23 | ED.WOUNDLAC ---
HPI - Wound/Laceration General Chief Complaint: Wound/Laceration Stated Complaint: fall Time Seen by Provider: 03/13/21 02:09 Source: patient and RN notes reviewed Mode of arrival: EMS Limitations: no limitations History of Present Illness HPI narrative: This is an 85 year old male who presents from an Assisted living facility for evaluation of head injury s/p fall. EMS reports patient was trying to go to the bathroom. He tried to get on his motorized scooter, and he fell. He hit his head on wall and then he fell onto carpet. He denies headache, neck pain or LOC. She denies any rib pain, chest pain, extremity pain. He was found to have abrasion to his forehead. His medication list shows he takes aspirin 81 mg and plavix 75 mg. Related Data Home Medications Medication Instructions Recorded Confirmed aspirin 81 mg PO DAILY 02/15/19 01/28/21 fenofibrate 160 mg PO DAILY 02/15/19 01/28/21 hydrocodone-acetaminophen 1 tablet PO BID PRN 02/15/19 01/28/21 lorazepam 0.5 mg PO BID 02/15/19 01/28/21 metformin 1,500 mg PO DAILY 02/15/19 01/28/21 clopidogrel 75 mg PO DAILY 01/28/21 01/28/21 Allergies Allergy/AdvReac Type Severity Reaction Status Date / Time No Known Allergies Allergy Verified 03/13/21 02:16 Review of Systems Review of Systems: All systems reviewed & are unremarkable except as noted in HPI and below PMFSH Past Medical History Medical History Anxiety Arthritis Arthritis of right elbow Benign prostatic hyperplasia Bronchitis Cerebrovascular accident (~08/2011) With dysphagia and dysarthria, resolved. 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 With lower extremity weakness and bilateral footdrop. Kidney stones Macular degeneration Prepatellar bursitis, right knee Seasonal allergies Type 2 diabetes mellitus Surgical History Surgical History History of bilateral cataract extraction History of laparoscopic cholecystectomy (~01/2013) History of lumbar surgery History of repair of right rotator cuff (~05/1999) History of right inguinal hernia repair Family History Family History Father Emphysema of lung Colon cancer Mother Heart disease Pacemaker Sibling Parkinson disease Social History Social History Social History: Mr. Rowan is and lives in his own home in [place]. He served in the as a young man. 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 He had previously worked as a [employer]. He smoked 2 to 3 packs of cigarettes per day for about 40 years and quit in 1988. He denies alcohol and illicit substance use. His daughter, Leonarda Isbell, is his healthcare power of economic developer and he wishes to be a full code. Smoking packs per day: 3 Smoking cigarettes per day: 60.0 Years smoked: 38 Smoking pack-years: 114.00 Smoking status: Former smoker Tobacco type: cigarettes Alcohol intake: never Substance use: never Gender identity (if verbalized by the patient): Male Spiritual care concerns: No Agree to blood products: Yes Exam Const: General: no acute distress and alert Orientation/consciousness: patient oriented x3 HENMT: Head: normocephalic, abrasion and other (left forehead skin avulsion. ) Face and sinus: normal facial exam, sinuses nontender and face symmetric Throat: posterior oropharynx normal Eyes: EOM: EOMs intact bilaterally Neck: Neck: normal visual inspection Chest: Chest palpation & inspection: normal inspection of the chest Resp: Effort & Inspection: normal respiratory effort and no retractions Auscultation: clear to aus
--- NOTE | 2021-03-13 03:55 | PC.NURSE ---
called patients son, yolanda, at this time. son states he will be here in approx 1 hour to take pt back to [facility]
[2021-03-13 06:25] VITALS: BP 124/68; PULSE 77; RESP 14; O2SAT 97
--- NOTE | 2021-03-13 06:37 | PC.NURSE ---
called x3 to shahla f[facility] to give report, calls were not answered. unable to give report. Son here to take pt back at this time
== END 2021-03-13 06:40 ==
PROVIDERS: Emergency Provider General Practice; PCP Family Medicine Adolescent Medicine
DX: S01.81XA Laceration without foreign body of other part of head, initial encounter (principal); Z87.891 Personal history of nicotine dependence; F41.9 Anxiety disorder, unspecified; M19.90 Unspecified osteoarthritis, unspecified site; K21.9 Gastro-esophageal reflux disease without esophagitis; E11.9 Type 2 diabetes mellitus without complications; Z79.84 Long term (current) use of oral hypoglycemic drugs; W19.XXXA Unspecified fall, initial encounter; Z23 Encounter for immunization
CPT/HCPCS: 70450; 72125; 90471; 90715; 99284

== ENCOUNTER 2021-05-24 20:08 | Inpatient (IN) | payer MEDICARE, SELFPAY ==
--- NOTE | ~2021-05-24 | XR_ITS ---
EXAMINATION: XR chest 2V DATE: 05/24/2021 21:12 INDICATION: Weakness. Slurred speech. TECHNIQUE: Frontal and lateral views of the chest were obtained. COMPARISON: Chest 2 views 01/28/2021, CT abdomen and pelvis 02/16/2019 FINDINGS: There are chronic reticular opacities in the lower lung zones. No pleural effusion or pneum othorax. The heart size is normal. There are surgical clips in the abdomen. There is mild chronic ant erior wedging of multiple vertebral bodies. IMPRESSION: 1. Stable mild chronic interstitial lung disease. Reviewed, dictated and finalized at location E.
--- NOTE | ~2021-05-24 | XR_ITS ---
EXAMINATION: XR abdomen/kub 1V DATE: 05/25/2021 10:47 INDICATION: Loose stools. TECHNIQUE: A supine view of the abdomen on 2 radiographs was obtained. COMPARISON: CT abdomen and pelvis 02/16/2019 FINDINGS: There are no dilated loops of bowel. There is a small volume of stool in colon. Surgical cl ips in the right upper quadrant are likely from cholecystectomy. There are changes of posterior fusio n procedure in lumbar spine. IMPRESSION: 1. Normal bowel gas pattern. Reviewed, dictated and finalized at location E.
--- NOTE | ~2021-05-24 | XR_ITS ---
EXAMINATION: XR barium swallow modified EXAM DATE: 05/27/2021 11:12 INDICATION: Difficulty swallowing. TECHNIQUE: Modified barium esophagram was performed by speech pathologist with radiologist Dr. Isra Green present to administered fluoroscopy. Speech pathologist administered barium in varying consis tencies as per speech pathologist documentation. This was recorded on tape. There was total fluorosc opic time of 1.6 minutes. The DAP for this procedure was 0.9 Gycm2. A total of 2 images sent to PAC S from the exam. FINDINGS: Oral stage: Adequate function. Pharyngeal phase: Reduced laryngeal elevation, sinus residual. Laryngeal penetration: Demonstrated. Aspiration: Demonstrated. Laryngeal sensitivity: Absent. IMPRESSION: Aspiration demonstrated; Please refer to speech pathologist findings and specific feedi ng recommendations. Reviewed, dictated and finalized at location A. IMPRESSION: Aspiration demonstrated; Please refer to speech pathologist findi ngs and specific feeding recommendations.
--- NOTE | ~2021-05-24 | CT_ITS ---
EXAMINATION: CT brain wo con DATE: 05/24/2021 21:06 INDICATION: Generalized weakness. Fall. TECHNIQUE: Computed tomography (CT) of the head was performed without intravenous contrast. The mA wa s adjusted according to patient size. Iterative reconstruction technique was employed. The dose-lengt h product was 605.33 mGy-cm. COMPARISON: Head CT 03/13/2021 FINDINGS: There are old infarcts in the cerebellum bilaterally. There is old infarct in posterior lef t frontal lobe. There are old infarcts in right occipital lobe and right parietal occipital region. T here are old infarcts in the basal ganglia and thalami bilaterally. There are scattered areas of low attenuation in the cerebral white matter. There is no intracranial hemorrhage, acute infarction, or a bnormal intracranial mass lesion. The ventricles are normal in size. There are likely changes of ocul ar lens replacement surgeries. There is mild mucosal thickening in right maxillary sinus. The mastoid air cells are normal. IMPRESSION: 1. Old infarcts in the brain. 2. Stable moderate nonspecific cerebral white matter disease, which likely represents chronic small v essel ischemic disease. Reviewed, dictated and finalized at location E. IMPRESSION: 1. Old infarcts in the brain. 2. Stable moderate nonspecific cerebral white matter disease, which likely repr esents chronic small vessel ischemic disease.
[2021-05-24 20:07] VITALS: BP 109/66; PULSE 95; RESP 20; TEMP 37.2; O2SAT 98
[2021-05-24 20:15] LABS: Glucose Point of Care 136 mg/dl (65-105)
--- NOTE | 2021-05-24 20:32 | PC.NURSE ---
This RN spoke with staff at [facility]. They state that pt usually gets around using an electric scooter and has been weak in lower extremity since CVA 4 months ago. They also report 2 unwitnessed fall today.
--- NOTE | 2021-05-24 20:36 | ECG_ITS ---
Measurements Intervals [place] Rate: 88 P: 26 CO: 164 QRS: -87 QRSD: 137 T: 47 QT: 363 QTc: 441 Interpretive Statements SINUS RHYTHM WITH OCCASIONAL SUPRAVENTRICULAR PREMATURE COMPLEXES RIGHT BUNDLE BRANCH BLOCK [120+ ms QRS DURATION, UPRIGHT V1, 40+ ms S IN I/aVL/V4/V5/V6] LEFT ANTERIOR FASCICULAR BLOCK [QRS AXIS <= -45, QR IN I, RS IN II] POSSIBLE ANTERIOR MYOCARDIAL INFARCTION , OF INDETERMINATE AGE [30 ms Q WAVE IN V1-V4] BASELINE ARTIFACT ABNORMAL ECG COMPARED TO ECG 11/21/2019 13:20:23 RIGHT BUNDLE-BRANCH BLOCK NOW PRESENT ANTERIOR INFARCTION Electronically Signed On 05-25-2021 16:14:57 CDT by Destin Stewart M.D.
[2021-05-24] MEDS: SODIUM CHLORIDE 0.9% IV 1,000 ML 999 ML IV CONT (20:48)
--- NOTE | 2021-05-24 20:56 | ED.GENADULT ---
HPI - General Adult General Chief complaint: Weakness Stated complaint: weakness and frequent falls Source: patient and EMS Mode of arrival: EMS Limitations: no limitations History of Present Illness HPI narrative: Patient is 85 years old white male came from assisting living by ambulance because of multiple falls over the last 3 to 4 days. History of stroke,, patient use a scooter for any movement, been falling when he tried to get out of scooter to the bathroom or from bed to scooter. Patient normally does not need any office services assistant, in the last 24 hours need full office services assistant for any movement. Patient complaining of pain at the tailbone. Denies head injury or any other injuries. Patient been in the assisting living for almost 1 year, had COVID and a stroke at the same time was left hemiplegia, patient is DNR. Patient denies any fever, chills, nausea, vomiting, abdominal pain, back pain, chest pain, shortness of breath, headache. Related Data Home Medications Medication Instructions Recorded Confirmed aspirin 81 mg PO DAILY 02/15/19 04/02/21 fenofibrate 160 mg PO DAILY 02/15/19 04/02/21 metformin 1,500 mg PO DAILY 02/15/19 04/02/21 clopidogrel 75 mg PO DAILY 01/28/21 04/02/21 amlodipine 5 mg-benazepril 10 mg 1 cap PO DAILY 03/18/21 04/02/21 capsule famotidine 20 mg tablet 20 mg PO BID tablet 03/18/21 04/02/21 tamsulosin 0.4 mg capsule 0.4 mg PO DAILY 03/18/21 04/02/21 Allergies Allergy/AdvReac Type Severity Reaction Status Date / Time aspirin AdvReac Mild Upset Verified 05/24/21 20:18 stomach Review of Systems Review of Systems: CONSTITUTIONAL: Denies fever, chills, or sweats. EYES: Denies visual changes, redness, or discharge. ENT: Denies rhinorrhea, congestion, sore throat, or otalgia. CARDIOVASCULAR: Denies chest pain, palpitations, or edema. RESPIRATORY: Denies cough or dyspnea. GASTROINTESTINAL: Denies abdominal pain, nausea, vomiting, or diarrhea. GENITOURINARY: Denies dysuria or hematuria. SKIN: Denies rash or itching. MUSCULOSKELETAL: Tailbone pain NEUROLOGIC: Denies headache, numbness, or weakness. PSYCHIATRIC: Denies anxiety or depression. [facility] Past Medical History Medical History Anxiety Arthritis Cerebrovascular accident (~08/2011) With dysphagia and dysarthria, resolved. 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 With lower extremity weakness and bilateral footdrop. Kidney stone Kidney stones Macular degeneration Seasonal allergies Ureteral stone Surgical History Surgical History History of bilateral cataract extraction History of laparoscopic cholecystectomy (~01/2013) History of lumbar surgery History of repair of right rotator cuff (~05/1999) History of right inguinal hernia repair Family History Family History Father Emphysema of lung Colon cancer Mother Heart disease Pacemaker Sibling Parkinson disease Social History Social History Social History: Mr. Rowan is and lives in his own home in [place]. He served in the as a young man. 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 He smoked 2 to 3 packs of cigarettes per day for about 40 years and quit in 1988. He denies alcohol and illicit substance use. His daughter, Leonarda Isbell, is his healthcare power of commercial real estate attorney and he wishes to be a full code. Smoking packs per day: 3 Smoking cigarettes per day: 60.0 Years smoked: 38 Smoking pack-years: 114.00 Smoking status: For
[2021-05-24 20:58] LABS: Basophils Percent Auto 0.4 % (0.2-1.2); Eosinophils Absolute Auto 0.1 K/mm3 (0-0.3); Eosinophils Percent Auto 0.6 % (0-4.4); Hematocrit 35.7 % (42.0-52.0); Hemoglobin 11.2 g/dL (14.0-18.0); Immature Granulocyte Absolute 0.03 K/mm3 (0.00-0.031); Immature Granulocyte Percent A 0.4 % (0-0.5); Lymphocytes Absolute Auto 1.02 K/mm3 (0.9-3.2); Lymphocytes Percent Auto 12.4 % (18.3-44.2); Mean Corpuscular HGB Conc 31.4 g/dl (32-36); Mean Corpuscular Hemoglobin 29.5 pg (26-34); Mean Corpuscular Volume 93.9 fl (80-100); Mean Platelet Volume 10.3 fl (7.4-10.4); Monocytes Absolute Auto 0.6 K/mm3 (0.1-0.6); Monocytes Percent Auto 7.8 % (2.6-8.5); Neutrophils Absolute Auto 6.5 K/mm3 (1.3-6.7); Neutrophils Percent Auto 78.4 % (45.5-73.1); Platelet Count Result 285 k/mm3 (150-375); Red Cell Distribution Width 16.7 % (11.5-14.5); White Blood Count 8.3 K/mm3 (4.5-10.0)
[2021-05-24 21:05] LABS: Prothrombin Time 13.2 Seconds (11.1-14.7)
[2021-05-24 21:06] LABS: Partial Thromboplastin Time 40.9 SECONDS (22.3-36.8)
[2021-05-24 21:10] LABS: Lactic Acid Reflex 2.5 mmol/L (0.7-2.1)
[2021-05-24 21:13] LABS: Alanine Aminotransferase 18 U/L (4-50); Albumin Level 3.6 g/dL (3.5-5.1); Alkaline Phosphatase 54 U/L (38-126); Anion Gap 9 mmol/L (8-16); Aspartate Amino Transferase 34 U/L (17-59); Bilirubin,Total 0.4 mg/dL (0.2-1.3); Blood Urea Nitrogen 36 mg/dL (9-20); Calcium 8.7 mg/dL (8.4-10.2); Carbon Dioxide 19 mmol/L (22-30); Chloride 111 mmol/L (98-107); Estimated CRCL calculation 29 ml/min; Estimated Glomerular Filt Rate 36; Glucose 129 mg/dL (65-110); Potassium 4.1 mmol/L (3.4-5.0); Sodium 139 mmol/L (137-145)
[2021-05-24 21:40] VITALS: PULSE 91; RESP 24
[2021-05-24 22:19] VITALS: BP 123/68; PULSE 92; RESP 18; O2SAT 100
[2021-05-24 22:46] LABS: Add Urine Microscopic? YES; Appearance Urine Cloudy (Clear); Bacteria Urine Trace /hpf; Bilirubin Urine Negative (Negative); Color Urine Yellow (Yellow); Glucose Urine UA Negative (Negative); Ketones Urine Negative (Negative); Leukocyte Esterase Ur 3+ LEU/UL (Negative); Mucus Urine Rare /lpf; Nitrate Urine Negative (Negative); Protein Urine 1+ mg/dL (Negative); Specific Grav Ur 1.012 (1.001-1.035); Urobilinogen Urine Negative mg/dL (<2.0); WBC Urine >75 /hpf
[2021-05-24 22:49] LABS: Blood Urine Negative (Negative)
--- NOTE | 2021-05-24 22:57 | PM.IMHP ---
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 Patient was brought to the emergency room after he has been falling while transferring patient is usually able to do this on his on. Patient denies any fevers, any rigors ,any chills, any cough ,any shortness of breath or sputum production, no nausea ,no vomiting, no abdominal pain, no diarrhea. Preliminary workup was significant for a creatinine of 1.8, multiple wbc's are present in his urinalysis. Patient is being admitted for further evaluation, management and treatment. Review of Systems Review of Systems: Recurrent falls weakness Constitutional: Constitutional: Denies chills, Denies fatigue, Denies fever(s), Denies malaise and Reports weakness Eyes: Eyes: Denies change in vision ENT: Denies dysphagia, Denies nasal congestion, Denies nasal discharge, Denies nasal obstruction and Denies odynophagia Cardiovascular: Cardiovascular: Denies pedal edema, Denies leg edema, Denies radiating jaw, neck or arm pain, Denies palpitations, Denies dyspnea on exertion and Denies orthopnea Respiratory: Respiratory: Denies cough Gastrointestinal: Gastrointestinal: Denies abdominal pain, Denies diarrhea, Denies nausea and Denies vomiting Genitourinary: Genitourinary: Denies dysuria Musculoskeletal: Musculoskeletal: Reports muscle weakness Integumentary/Breasts: Skin/Breast: Denies rash Neurologic: Reports focal weakness Endocrine: Endocrine: Denies cold intolerance, Denies heat intolerance, Denies polyphagia, Denies polydipsia and Denies palpitations Hematologic/Lymphatic: Hematologic/Lymphatic: Reports no additional hematologic/lymphatic complaints and Reports as per HPI Allergic/Immunologic: Allergic/Immunologic: Reports no additional allergic/immunologic complaints and Reports as per HPI [facility] Past Medical History Medical History (Updated 05/25/21 @ 04:39 by Rimma Carlisle MD) Anxiety Arthritis Cerebrovascular accident (~08/2011) With dysphagia and dysarthria, resolved. 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 With lower extremity weakness and bilateral footdrop. Kidney stone Kidney stones Macular degeneration Seasonal allergies Ureteral stone Surgical History Surgical History History of bilateral cataract extraction History of laparoscopic cholecystectomy (~01/2013) History of lumbar surgery History of repair of right rotator cuff (~05/1999) History of right inguinal hernia repair Family History Family History Father Emphysema of lung Colon cancer Mother Heart disease Pacemaker Sibling Parkinson disease Social History Social History Social History: Mr. Rowan is and lives in his own home in [place]. He served in the as a young man. 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 He smoked 2 to 3 packs of cigarettes per day for about 40 years and quit in 1988. He denies alcohol and illicit substance use. His daughter, Leonarda Isbell, is his healthcare power of patent prosecution attorney and he wishes to be a full code. Smoking packs per day: 3 Smoking cigarettes per day: 60.0 Years smoked: 38 Smoking p
[2021-05-24 23:13] VITALS: BP 119/72; PULSE 105; RESP 19
[2021-05-24 23:54] LABS: Reflex Lactic Acid Yes or No Add Lactic
--- NOTE | 2021-05-24 23:55 | ADMGEN ---
This patient, Arnaldo Rowan, was admitted to [facility] Surg Room 305-01. Patient/family oriented to hospital policies and general routines including ID bracelet, bed and alarms, visiting hours, pain management, procedures, bathroom and other care routines, personal items, smoking policy, room service/diet, and visiting hours. Information on how to activate the Rapid Response Team has been discussed. Patient/Family are encouraged to report perceived risks to care and to ask questions if they do not understand what they are told or what they should do.
[2021-05-25] VITALS: BP 117/65; PULSE 102; RESP 20; TEMP 36.8; O2SAT 100
[2021-05-25 00:03] VITALS: BMI 22.1
[2021-05-25] MEDS: SODIUM CHLORIDE 0.9% IV 1,000 ML 150 ML IV CONT (00:14)
[2021-05-25 00:48] LABS: Lactic Acid 1.8 mmol/L (0.7-2.1)
[2021-05-25 06:00] VITALS: BP 101/76; PULSE 88; RESP 22; TEMP 36.7; O2SAT 98
[2021-05-25 06:12] LABS: Anion Gap 7 mmol/L (8-16); Blood Urea Nitrogen 30 mg/dL (9-20); Calcium 7.6 mg/dL (8.4-10.2); Carbon Dioxide 18 mmol/L (22-30); Chloride 112 mmol/L (98-107); Estimated CRCL calculation 36 ml/min; Estimated Glomerular Filt Rate 48; Glucose 96 mg/dL (65-110); Potassium 4.2 mmol/L (3.4-5.0); Sodium 137 mmol/L (137-145)
[2021-05-25 08:00] VITALS: PULSE 88; RESP 22; O2SAT 98
[2021-05-25] MEDS: FENOFIBRATE 160 MG TABLET PO (09:28)
[2021-05-25] MEDS: OPTI-GEN TAB 1 TABLET PO ×2 (09:28→17:23)
[2021-05-25] MEDS: PANTOPRAZOLE 40 MG TABLET PO (09:28)
[2021-05-25] MEDS: FAMOTIDINE 20 MG TABLET PO ×2 (09:28→17:24)
[2021-05-25] MEDS: amLODIPine BESYLATE 5 MG TABLET PO (09:28)
[2021-05-25] MEDS: CLOPIDOGREL BISULFATE 75 MG TABLET PO (09:28)
[2021-05-25] MEDS: ASPIRIN 81 MG ENTERIC TABLET PO (09:28)
[2021-05-25] MEDS: OMEGA 3 POLYUNSAT FATTY ACIDS 1 GM CAP PO (09:28)
[2021-05-25] MEDS: lisinopriL 10 MG TABLET PO (09:29)
[2021-05-25] MEDS: MEMANTINE 5 MG TABLET PO (09:29)
--- NOTE | 2021-05-25 10:06 | PM.IMPN ---
Progress Note: A&P Assessment and Plan (1) Urinary tract infection: Code(s): N39.0 - Urinary tract infection, site not specified Status: Acute Assessment and Plan: CBC, CMP, UA, reviewed Pending urine culture Follow temp curve, cultures, WBC, and VS Ceftriaxone 1g IV daily (2) Weakness: Code(s): R53.1 - Weakness Status: Acute Assessment and Plan: Likely secondary to acute illness PT OT eval and treat (3) Falls: Qualifiers: Encounter type: subsequent encounter Qualified Code(s): W19.XXXD - Unspecified fall, subsequent encounter Code(s): W19.XXXA - Unspecified fall, initial encounter Status: Acute Assessment and Plan: Fall precautions (4) ROBLES (acute kidney injury): Code(s): N17.9 - Acute kidney failure, unspecified Status: Acute Assessment and Plan: Likely to be pre renal azotemia Will hold benazepril Monitor serum electrolytes and renal function Patient's baseline is 0.9-1 (5) Type 2 diabetes mellitus with diabetic polyneuropathy: Code(s): E11.42 - Type 2 diabetes mellitus with diabetic polyneuropathy Status: Acute Assessment and Plan: Insulin Lispro sliding scale, Accu-checks qAc and HS and Hold oral hypoglycemics Obtain a HgbA1c (6) GERD (gastroesophageal reflux disease): Code(s): K21.9 - Gastro-esophageal reflux disease without esophagitis Status: Chronic Assessment and Plan: Pantoprazole 40 mg q.day (7) Benign prostatic hyperplasia with lower urinary tract symptoms: Code(s): N40.1 - Benign prostatic hyperplasia with lower urinary tract symptoms Status: Acute Assessment and Plan: Continue tamsulosin (8) Incomplete paraplegia: Code(s): G82.22 - Paraplegia, incomplete Status: Acute Assessment and Plan: Patient uses a scooter to get by Fall precautions (9) Dementia: Code(s): F03.90 - Unspecified dementia without behavioral disturbance Status: Acute Assessment and Plan: Unchanged (10) Frequent loose stools: Code(s): R19.7 - Diarrhea, unspecified Status: Acute Assessment and Plan: Obtain a KUB, patient's abdomen is soft and nondistended Sent for C diff and stool cultures Subjective Date/time seen: 05/25/21 10:06 Patient is alert to self, disoriented to time and place. He was admitted for urinary tract infection is receiving IV Rocephin. Patient is a paraplegic and has spinal injury several years ago. Patient also has an ROBLES which is slightly improved to 1.4, baseline 0.91. PT and OT evaluated the patient. Holding benazepril for ROBLES. S patient has no complaints at this time. He does have some liquid stools at bedside. Sent for C diff. Patient denies any chest pain, shortness a breath, nausea, vomiting or constipation. Does endorse multiple diarrheal stools. No acute events reported by RN during the night. Review of Systems Review of Systems: All systems reviewed & are unremarkable except as noted in HPI and below Exam Narrative: General: No acute distress. Mental Status: Awake, alert and oriented to person, disoriented place, and time with clear speech. Skin: Skin in warm, dry and intact without rashes or lesions. Head: Normocephalic and atraumatic. Eyes: Conjunctivae are clear without exudates or hemorrhage. Sclera is non-icteric. EOM are intact, PERRLA. Ears: The external ear and canal are non-tender and without swelling or discharge. Nose: Nasal mucosa is pink and moist. Septum midline. Nares patent bilaterally. Throat: Oral mucosa pink and moist with good dentition. Tongue midline. Neck: The neck supple without adenopathy. Trachea midline. No JVD. Cardiac: S1 and S2 regular rate and rhythm. No murmurs, gallops, or rubs auscultated. Respiratory: Chest wall symmetric, nontender and without deformity or trauma. Respirations even and unlabored. Lung sounds are diminished to auscultation in al
[2021-05-25 10:31] LABS: Toxigenic C. Diff NEGATIVE (NEGATIVE)
[2021-05-25 14:00] VITALS: BP 109/58; PULSE 71; RESP 20; TEMP 36.6; O2SAT 94
[2021-05-25] MEDS: HYDROcodone/acetaminophen (*CRX) 7.5-325 MG TABLET 1 TAB PO (17:22)
[2021-05-25 21:03] VITALS: BP 100/64; PULSE 72; RESP 16; TEMP 36.4; O2SAT 99
[2021-05-25] MEDS: MIRTAZAPINE 15 MG TABLET PO (21:09)
[2021-05-25] MEDS: TAMSULOSIN HCL 0.4 MG CAPSULE PO (21:09)
[2021-05-25] MEDS: SODIUM CHLORIDE 0.9% IV 1,000 ML 75 ML IV CONT (21:10)
[2021-05-26 06:00] VITALS: BP 103/48; PULSE 70; RESP 18; TEMP 36.3; O2SAT 97
[2021-05-26 06:07] LABS: Basophils Percent Auto 0.3 % (0.2-1.2); Eosinophils Absolute Auto 0.2 K/mm3 (0-0.3); Eosinophils Percent Auto 2.9 % (0-4.4); Hematocrit 30.4 % (42.0-52.0); Hemoglobin 9.9 g/dL (14.0-18.0); Immature Granulocyte Absolute 0.03 K/mm3 (0.00-0.031); Immature Granulocyte Percent A 0.5 % (0-0.5); Lymphocytes Absolute Auto 0.84 K/mm3 (0.9-3.2); Lymphocytes Percent Auto 13.6 % (18.3-44.2); Mean Corpuscular HGB Conc 32.6 g/dl (32-36); Mean Corpuscular Hemoglobin 29.7 pg (26-34); Mean Corpuscular Volume 91.3 fl (80-100); Mean Platelet Volume 10.9 fl (7.4-10.4); Monocytes Absolute Auto 0.5 K/mm3 (0.1-0.6); Monocytes Percent Auto 7.3 % (2.6-8.5); Neutrophils Absolute Auto 4.7 K/mm3 (1.3-6.7); Neutrophils Percent Auto 75.4 % (45.5-73.1); Platelet Count Result 241 k/mm3 (150-375); Red Blood Count 3.33 M/mm3 (4.6-6.20); Red Cell Distribution Width 16.6 % (11.5-14.5); White Blood Count 6.2 K/mm3 (4.5-10.0)
[2021-05-26 06:10] LABS: Alanine Aminotransferase 16 U/L (4-50); Albumin Level 2.8 g/dL (3.5-5.1); Alkaline Phosphatase 49 U/L (38-126); Anion Gap 6 mmol/L (8-16); Aspartate Amino Transferase 34 U/L (17-59); Bilirubin,Total 0.3 mg/dL (0.2-1.3); Blood Urea Nitrogen 22 mg/dL (9-20); Calcium 7.9 mg/dL (8.4-10.2); Carbon Dioxide 19 mmol/L (22-30); Chloride 115 mmol/L (98-107); Estimated CRCL calculation 45 ml/min; Estimated Glomerular Filt Rate > 60; Glucose 87 mg/dL (65-110); Magnesium 1.4 mg/dL (1.6-2.3); Potassium 3.4 mmol/L (3.4-5.0); Sodium 140 mmol/L (137-145)
[2021-05-26 08:16] LABS: Transferrin 169 mg/dL (206-381)
[2021-05-26] MEDS: ENOXAPARIN 40 MG/0.4 ML SYRINGE SUB-Q (08:38)
[2021-05-26] MEDS: PANTOPRAZOLE 40 MG TABLET PO (08:38)
[2021-05-26] MEDS: MAGNESIUM SULF 4 GM/WATER100ML 4 GM/100 ML BAG IVPB (08:40)
[2021-05-26] MEDS: FENOFIBRATE 160 MG TABLET PO (08:40)
[2021-05-26] MEDS: FAMOTIDINE 20 MG TABLET PO ×2 (08:40→16:33)
[2021-05-26] MEDS: MEMANTINE 5 MG TABLET PO (08:40)
[2021-05-26] MEDS: amLODIPine BESYLATE 5 MG TABLET PO (08:40)
[2021-05-26] MEDS: OMEGA 3 POLYUNSAT FATTY ACIDS 1 GM CAP PO (08:40)
[2021-05-26] MEDS: OPTI-GEN TAB 1 TABLET PO ×2 (08:41→16:34)
[2021-05-26] MEDS: CLOPIDOGREL BISULFATE 75 MG TABLET PO (08:41)
[2021-05-26] MEDS: ASPIRIN 81 MG ENTERIC TABLET PO (08:41)
[2021-05-26] MEDS: lisinopriL 10 MG TABLET PO (08:41)
[2021-05-26] MEDS: SODIUM CHLORIDE 0.9% IV 1,000 ML 75 ML IV CONT ×2 (08:52→21:00)
--- NOTE | 2021-05-26 09:15 | PM.IMPN ---
Progress Note: A&P Assessment and Plan (1) Bacteremia: Code(s): R78.81 - Bacteremia Status: Acute Assessment and Plan: Preliminary blood cultures show gram negative bascilli Probably from the urine Await for cultures to result Adjust antibiotics to sensitivities (2) Urinary tract infection: Code(s): N39.0 - Urinary tract infection, site not specified Status: Acute Assessment and Plan: UA cloudy, 1+ protein, 3+ leukocyte esterase, >75 WBC, Trace bacteria Urine culture grew Enterobacter cloacae complex WBC 6.2 today Continue Ceftriaxone 1g IV daily, as this is susceptible Tailor antibiotics to sensitivities (3) Weakness: Code(s): R53.1 - Weakness Status: Acute Assessment and Plan: Likely secondary to UTI and/or bacteremia PT OT eval and treat (4) Falls: Qualifiers: Encounter type: subsequent encounter Qualified Code(s): W19.XXXD - Unspecified fall, subsequent encounter Code(s): W19.XXXA - Unspecified fall, initial encounter Status: Acute Assessment and Plan: Fall precautions PT/OT (5) ROBLES (acute kidney injury): Code(s): N17.9 - Acute kidney failure, unspecified Status: Acute Assessment and Plan: Current BUN/Cr 22/1.10 BUN/Cr 36/1.80 upon arrival Likely to be pre renal azotemia Will hold benazepril DC IV fluids at this time Monitor serum electrolytes and renal function Patient's baseline is 0.9-1 (6) Type 2 diabetes mellitus with diabetic polyneuropathy: Code(s): E11.42 - Type 2 diabetes mellitus with diabetic polyneuropathy Status: Acute Assessment and Plan: Current glucose is 87 A1c Insulin Lispro sliding scale Accu-checks qAc and HS Hold oral hypoglycemics Trend glucose Adjust therapy as indicated (7) Benign prostatic hyperplasia with lower urinary tract symptoms: Code(s): N40.1 - Benign prostatic hyperplasia with lower urinary tract symptoms Status: Acute Assessment and Plan: Continue tamsulosin Bladder scan PRN Trend output (8) Incomplete paraplegia: Code(s): G82.22 - Paraplegia, incomplete Status: Acute Assessment and Plan: Patient uses a scooter to get by Fall precautions (9) Dementia: Code(s): F03.90 - Unspecified dementia without behavioral disturbance Status: Acute Assessment and Plan: Unchanged Continue home Namenda (10) Frequent loose stools: Code(s): R19.7 - Diarrhea, unspecified Status: Acute Assessment and Plan: KUB, Normal bowel gas pattern abdomen is soft and nondistended Sent for C diff and stool cultures, unlikely C.Diff, WBC is only 6.2 Subjective Date/time seen: 05/26/21 07:38 Interval history: Date/Time: 05/24/21 22:57 Narrative: This is an 85-year-old male with past medical history significant for 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 Patient was brought to the emergency room after he has been falling while transferring patient is usually able to do this on his on. Patient denies any fevers, any rigors ,any chills, any cough ,any shortness of breath or sputum production, no nausea ,no vomiting, no abdominal pain, no diarrhea. Preliminary workup was significant for a creatinine of 1.8, multiple wbc's are present in his urinalysis. Patient is being admitted for further evaluation, management and treatment. Date/time seen: 05/25/21 10:06 Patient is alert to self, disoriented to time and place. He was admitted for urinary tract infection is receiving IV Rocephin. Patient is a paraplegic and has spinal injury several years ago. Patient a
--- NOTE | 2021-05-26 09:15 | P.PNIM_ITS ---
Progress Note: A&P Assessment and Plan (1) Bacteremia: Code(s): R78.81 - Bacteremia Status: Acute Assessment and Plan: * Preliminary blood cultures show gram negative bascilli * Probably from the urine * Await for cultures to result * Adjust antibiotics to sensitivities (2) Urinary tract infection: Code(s): N39.0 - Urinary tract infection, site not specified Status: Acute Assessment and Plan: * UA cloudy, 1+ protein, 3+ leukocyte esterase, >75 WBC, Trace bacteria * Urine culture grew Enterobacter cloacae complex * WBC 6.2 today * Continue Ceftriaxone 1g IV daily, as this is susceptible * Tailor antibiotics to sensitivities (3) Weakness: Code(s): R53.1 - Weakness Status: Acute Assessment and Plan: * Likely secondary to UTI and/or bacteremia * PT OT eval and treat (4) Falls: Qualifiers: Encounter type: subsequent encounter Qualified Code(s): W19.XXXD - Unspecified fall, subsequent encounter Code(s): W19.XXXA - Unspecified fall, initial encounter Status: Acute Assessment and Plan: * Fall precautions * PT/OT (5) ROBLES (acute kidney injury): Code(s): N17.9 - Acute kidney failure, unspecified Status: Acute Assessment and Plan: * Current BUN/Cr 22/1.10 * BUN/Cr 36/1.80 upon arrival * Likely to be pre renal azotemia * Will hold benazepril * DC IV fluids at this time * Monitor serum electrolytes and renal function * Patient's baseline is 0.9-1 (6) Type 2 diabetes mellitus with diabetic polyneuropathy: Code(s): E11.42 - Type 2 diabetes mellitus with diabetic polyneuropathy Status: Acute Assessment and Plan: * Current glucose is 87 * A1c * Insulin Lispro sliding scale * Accu-checks qAc and HS * Hold oral hypoglycemics * Trend glucose * Adjust therapy as indicated (7) Benign prostatic hyperplasia with lower urinary tract symptoms: Code(s): N40.1 - Benign prostatic hyperplasia with lower urinary tract symptoms Status: Acute Assessment and Plan: * Continue tamsulosin * Bladder scan PRN * Trend output (8) Incomplete paraplegia: Code(s): G82.22 - Paraplegia, incomplete Status: Acute Assessment and Plan: * Patient uses a scooter to get by * Fall precautions (9) Dementia: Code(s): F03.90 - Unspecified dementia without behavioral disturbance Status: Acute Assessment and Plan: * Unchanged * Continue home Namenda (10) Frequent loose stools: Code(s): R19.7 - Diarrhea, unspecified Status: Acute Assessment and Plan: * KUB, Normal bowel gas pattern * abdomen is soft and nondistended * Sent for C diff and stool cultures, unlikely C.Diff, WBC is only 6.2 Subjective Date/time seen: 05/26/21 07:38 Interval history: Date/Time: 05/24/21 22:57 Narrative: This is an 85-year-old male with past medical history significant for 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 Patient was brought to the emergency room after he has been falling while transferring patient is usually able
[2021-05-26 09:16] LABS: Folic Acid 7.9 ng/mL (2.76->20)
--- NOTE | 2021-05-26 09:59 | WPDCDIQUERY2 ---
CDI Query Clarification Request 05/24 ER Physician documented: Clinical Impression: -Dehydration, Weakness, Falls Emergency Course: - Work-up showed elevated creatinine and lactic acid. Dehydration is my concern. Patient probably need to be transferred [place] a [place] [facility], because unable to manage at the assisted living. -BUN 36, CR 1.80, Lactic Acid 2.5 Please clarify if Diagnosis Dehydration has been rule in, ruled out or unable to determine <aGby Del Toro - Last Filed: 05/26/21 10:04> Under ROBLES <GIGI Arana - Last Filed: 05/26/21 12:31>
[2021-05-26 10:07] LABS: Hemoglobin A1C 4.9 % (<5.7)
[2021-05-26 11:58] LABS: Iron 26 ug/dL (49-181)
[2021-05-26 12:08] LABS: Percent Iron Saturation 11 % (20-50)
[2021-05-26 14:00] VITALS: BP 110/58; PULSE 86; RESP 16; TEMP 36.4; O2SAT 99
[2021-05-26 14:41] VITALS: O2SAT 97
[2021-05-26] MEDS: ACETAMINOPHEN 325 MG TABLET 650 MG PO (15:25)
[2021-05-26] MEDS: TAMSULOSIN HCL 0.4 MG CAPSULE PO (20:45)
[2021-05-26] MEDS: MIRTAZAPINE 15 MG TABLET PO (20:45)
[2021-05-26 22:00] VITALS: BP 100/55; PULSE 62; RESP 18; TEMP 36.1; O2SAT 96
[2021-05-27 06:00] VITALS: BP 122/51; PULSE 69; RESP 18; TEMP 36.1; O2SAT 97
[2021-05-27 06:08] LABS: Basophils Percent Auto 0.2 % (0.2-1.2); Eosinophils Absolute Auto 0.2 K/mm3 (0-0.3); Eosinophils Percent Auto 3.6 % (0-4.4); Hematocrit 31.7 % (42.0-52.0); Hemoglobin 10.3 g/dL (14.0-18.0); Immature Granulocyte Absolute 0.02 K/mm3 (0.00-0.031); Immature Granulocyte Percent A 0.3 % (0-0.5); Lymphocytes Absolute Auto 0.94 K/mm3 (0.9-3.2); Lymphocytes Percent Auto 16.2 % (18.3-44.2); Mean Corpuscular HGB Conc 32.5 g/dl (32-36); Mean Corpuscular Hemoglobin 29.4 pg (26-34); Mean Corpuscular Volume 90.6 fl (80-100); Mean Platelet Volume 10.2 fl (7.4-10.4); Monocytes Absolute Auto 0.4 K/mm3 (0.1-0.6); Monocytes Percent Auto 6.9 % (2.6-8.5); Neutrophils Absolute Auto 4.2 K/mm3 (1.3-6.7); Neutrophils Percent Auto 72.8 % (45.5-73.1); Platelet Count Result 274 k/mm3 (150-375); Red Cell Distribution Width 16.5 % (11.5-14.5); White Blood Count 5.8 K/mm3 (4.5-10.0)
[2021-05-27 06:20] LABS: Alanine Aminotransferase 18 U/L (4-50); Alkaline Phosphatase 51 U/L (38-126); Anion Gap 5 mmol/L (8-16); Aspartate Amino Transferase 36 U/L (17-59); Bilirubin,Total 0.3 mg/dL (0.2-1.3); Blood Urea Nitrogen 17 mg/dL (9-20); Carbon Dioxide 21 mmol/L (22-30); Chloride 115 mmol/L (98-107); Estimated CRCL calculation 49 ml/min; Estimated Glomerular Filt Rate > 60; Glucose 97 mg/dL (65-110); Magnesium 2.1 mg/dL (1.6-2.3); Potassium 3.8 mmol/L (3.4-5.0); Sodium 141 mmol/L (137-145)
[2021-05-27 07:48] LABS: Glucose Point of Care 81 mg/dl (65-105)
[2021-05-27] MEDS: lisinopriL 10 MG TABLET PO (08:12)
[2021-05-27] MEDS: MEMANTINE 5 MG TABLET PO (08:12)
[2021-05-27] MEDS: amLODIPine BESYLATE 5 MG TABLET PO (08:12)
[2021-05-27] MEDS: FENOFIBRATE 160 MG TABLET PO (08:12)
[2021-05-27] MEDS: OMEGA 3 POLYUNSAT FATTY ACIDS 1 GM CAP PO (08:12)
[2021-05-27] MEDS: ENOXAPARIN 40 MG/0.4 ML SYRINGE SUB-Q (08:12)
[2021-05-27] MEDS: OPTI-GEN TAB 1 TABLET PO ×2 (08:12→15:59)
[2021-05-27] MEDS: CLOPIDOGREL BISULFATE 75 MG TABLET PO (08:13)
[2021-05-27] MEDS: ASPIRIN 81 MG ENTERIC TABLET PO (08:13)
[2021-05-27] MEDS: PANTOPRAZOLE 40 MG TABLET PO (08:13)
[2021-05-27] MEDS: FAMOTIDINE 20 MG TABLET PO ×2 (08:13→15:59)
[2021-05-27] MEDS: ACETAMINOPHEN 325 MG TABLET 650 MG PO (08:14)
--- NOTE | 2021-05-27 10:15 | P.CDI_ITS ---
CDI Query Clarification Request 0
--- NOTE | 2021-05-27 10:15 | WPDCDIQUERY2 ---
CDI Query Clarification Request 0
--- NOTE | 2021-05-27 10:30 | P.PNIM_ITS ---
Progress Note: A&P Assessment and Plan (1) Bacteremia: Code(s): R78.81 - Bacteremia Status: Acute Assessment and Plan: * blood cultures Enterobacter Colace * Probably from the urine * Continue IV ceftriaxone for 5 days * Adjust antibiotics to sensitivities (2) Urinary tract infection: Code(s): N39.0 - Urinary tract infection, site not specified Status: Acute Assessment and Plan: * UA cloudy, 1+ protein, 3+ leukocyte esterase, >75 WBC, Trace bacteria * Urine culture grew Enterobacter cloacae complex * WBC 5.8 today * Continue Ceftriaxone 1g IV daily, as this is susceptible * Tailor antibiotics to sensitivities (3) Weakness: Code(s): R53.1 - Weakness Status: Acute Assessment and Plan: * Likely secondary to UTI and/or bacteremia * PT OT eval and treat (4) Falls: Qualifiers: Encounter type: subsequent encounter Qualified Code(s): W19.XXXD - Unspecified fall, subsequent encounter Code(s): W19.XXXA - Unspecified fall, initial encounter Status: Acute Assessment and Plan: * Fall precautions * PT/OT (5) ROBLES (acute kidney injury): Code(s): N17.9 - Acute kidney failure, unspecified Status: Acute Assessment and Plan: * Current BUN/Cr 17/1.00 * BUN/Cr 36/1.80 upon arrival * Likely to be pre renal azotemia * Will hold benazepril * DC IV fluids at this time * Monitor serum electrolytes and renal function * Patient's baseline is 0.9-1 (6) Type 2 diabetes mellitus with diabetic polyneuropathy: Code(s): E11.42 - Type 2 diabetes mellitus with diabetic polyneuropathy Status: Acute Assessment and Plan: * Current glucose is 97 * A1c * Insulin Lispro sliding scale * Accu-checks Ac and HS * Hold oral hypoglycemics * Trend glucose * Adjust therapy as indicated (7) Benign prostatic hyperplasia with lower urinary tract symptoms: Code(s): N40.1 - Benign prostatic hyperplasia with lower urinary tract symptoms Status: Acute Assessment and Plan: * Continue tamsulosin * Bladder scan PRN * Trend output (8) Incomplete paraplegia: Code(s): G82.22 - Paraplegia, incomplete Status: Acute Assessment and Plan: * Patient uses a scooter to get by * Fall precautions (9) Dementia: Code(s): F03.90 - Unspecified dementia without behavioral disturbance Status: Acute Assessment and Plan: * Unchanged * Continue home Namenda (10) Frequent loose stools: Code(s): R19.7 - Diarrhea, unspecified Status: Acute Assessment and Plan: * KUB, Normal bowel gas pattern * abdomen is soft and nondistended * Sent for C diff and stool cultures, unlikely C.Diff, WBC is only 6.2 * Stool cultures came back negative Time Spent With Patient Time with patient: Greater than 35 minutes Subjective Date/time seen: 05/27/21 13:52 Interval history: Date/Time: 05/24/21 22:57 Narrative: This is an 85-year-old male with past medical history significant for 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 Patient was
--- NOTE | 2021-05-27 10:30 | PM.IMPN ---
Progress Note: A&P Assessment and Plan (1) Bacteremia: Code(s): R78.81 - Bacteremia Status: Acute Assessment and Plan: blood cultures Enterobacter Colace Probably from the urine Continue IV ceftriaxone for 5 days Adjust antibiotics to sensitivities (2) Urinary tract infection: Code(s): N39.0 - Urinary tract infection, site not specified Status: Acute Assessment and Plan: UA cloudy, 1+ protein, 3+ leukocyte esterase, >75 WBC, Trace bacteria Urine culture grew Enterobacter cloacae complex WBC 5.8 today Continue Ceftriaxone 1g IV daily, as this is susceptible Tailor antibiotics to sensitivities (3) Weakness: Code(s): R53.1 - Weakness Status: Acute Assessment and Plan: Likely secondary to UTI and/or bacteremia PT OT eval and treat (4) Falls: Qualifiers: Encounter type: subsequent encounter Qualified Code(s): W19.XXXD - Unspecified fall, subsequent encounter Code(s): W19.XXXA - Unspecified fall, initial encounter Status: Acute Assessment and Plan: Fall precautions PT/OT (5) ROBLES (acute kidney injury): Code(s): N17.9 - Acute kidney failure, unspecified Status: Acute Assessment and Plan: Current BUN/Cr 17/1.00 BUN/Cr 36/1.80 upon arrival Likely to be pre renal azotemia Will hold benazepril DC IV fluids at this time Monitor serum electrolytes and renal function Patient's baseline is 0.9-1 (6) Type 2 diabetes mellitus with diabetic polyneuropathy: Code(s): E11.42 - Type 2 diabetes mellitus with diabetic polyneuropathy Status: Acute Assessment and Plan: Current glucose is 97 A1c Insulin Lispro sliding scale Accu-checks Ac and HS Hold oral hypoglycemics Trend glucose Adjust therapy as indicated (7) Benign prostatic hyperplasia with lower urinary tract symptoms: Code(s): N40.1 - Benign prostatic hyperplasia with lower urinary tract symptoms Status: Acute Assessment and Plan: Continue tamsulosin Bladder scan PRN Trend output (8) Incomplete paraplegia: Code(s): G82.22 - Paraplegia, incomplete Status: Acute Assessment and Plan: Patient uses a scooter to get by Fall precautions (9) Dementia: Code(s): F03.90 - Unspecified dementia without behavioral disturbance Status: Acute Assessment and Plan: Unchanged Continue home Namenda (10) Frequent loose stools: Code(s): R19.7 - Diarrhea, unspecified Status: Acute Assessment and Plan: KUB, Normal bowel gas pattern abdomen is soft and nondistended Sent for C diff and stool cultures, unlikely C.Diff, WBC is only 6.2 Stool cultures came back negative Time Spent With Patient Time with patient: Greater than 35 minutes Subjective Date/time seen: 05/27/21 13:52 Interval history: Date/Time: 05/24/21 22:57 Narrative: This is an 85-year-old male with past medical history significant for 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 Patient was brought to the emergency room after he has been falling while transferring patient is usually able to do this on his on. Patient denies any fevers, any rigors ,any chills, any cough ,any shortness of breath or sputum production, no nausea ,no vomiting, no abdominal pain, no diarrhea. Preliminary workup was significant for a creatinine of 1.8, multiple wbc's are present in his urinalysis. Patient is being admitted for further evaluation, management and treatment. Date/time seen: 05/25/21 10:06 Patient is alert to self, disoriented to time and place. He was admitted for urinary tract infection is receiving
--- NOTE | 2021-05-27 11:12 | PCSTNOTE ---
Please refer to the Bedside Swallow Evaluation in the EMR. Please note, silent aspiration cannot be ruled out at bedside.
[2021-05-27 11:25] LABS: Glucose Point of Care 152 mg/dl (65-105)
--- NOTE | 2021-05-27 11:36 | PCSTNOTE ---
Please refer to the Modified Barium Swallow Evaluation in the EMR.
[2021-05-27 13:33] VITALS: BP 112/84; PULSE 74; RESP 18; TEMP 36; O2SAT 99
[2021-05-27] MEDS: SODIUM CHLORIDE 0.9% IV 1,000 ML 75 ML IV CONT ×2 (14:36→21:18)
[2021-05-27] MEDS: FERROUS SULFATE 324 MG TABLET PO (15:59)
[2021-05-27 16:30] LABS: Glucose Point of Care 102 mg/dl (65-105)
[2021-05-27] MEDS: TAMSULOSIN HCL 0.4 MG CAPSULE PO (20:04)
[2021-05-27] MEDS: MIRTAZAPINE 15 MG TABLET PO (20:04)
[2021-05-27 21:47] VITALS: BP 146/72; PULSE 78; RESP 16; TEMP 36.3; O2SAT 99
[2021-05-27 23:27] LABS: Glucose Point of Care 83 mg/dl (65-105)
[2021-05-28 05:27] VITALS: BP 107/42; PULSE 65; RESP 16; TEMP 36.1; O2SAT 99
[2021-05-28 06:16] LABS: Basophils Percent Auto 0.4 % (0.2-1.2); Eosinophils Absolute Auto 0.2 K/mm3 (0-0.3); Eosinophils Percent Auto 3.6 % (0-4.4); Hematocrit 28.9 % (42.0-52.0); Hemoglobin 9.4 g/dL (14.0-18.0); Immature Granulocyte Absolute 0.02 K/mm3 (0.00-0.031); Immature Granulocyte Percent A 0.4 % (0-0.5); Lymphocytes Absolute Auto 1.14 K/mm3 (0.9-3.2); Lymphocytes Percent Auto 23.9 % (18.3-44.2); Mean Corpuscular HGB Conc 32.5 g/dl (32-36); Mean Corpuscular Volume 92.3 fl (80-100); Mean Platelet Volume 10.3 fl (7.4-10.4); Monocytes Absolute Auto 0.3 K/mm3 (0.1-0.6); Monocytes Percent Auto 6.7 % (2.6-8.5); Neutrophils Absolute Auto 3.1 K/mm3 (1.3-6.7); Platelet Count Result 270 k/mm3 (150-375); Red Blood Count 3.13 M/mm3 (4.6-6.20); Red Cell Distribution Width 16.7 % (11.5-14.5); White Blood Count 4.8 K/mm3 (4.5-10.0)
[2021-05-28 06:34] LABS: Alanine Aminotransferase 17 U/L (4-50); Albumin Level 2.7 g/dL (3.5-5.1); Alkaline Phosphatase 33 U/L (38-126); Anion Gap 6 mmol/L (8-16); Aspartate Amino Transferase 39 U/L (17-59); Bilirubin,Total 0.4 mg/dL (0.2-1.3); Blood Urea Nitrogen 12 mg/dL (9-20); Calcium 7.7 mg/dL (8.4-10.2); Carbon Dioxide 21 mmol/L (22-30); Chloride 117 mmol/L (98-107); Estimated CRCL calculation 54 ml/min; Estimated Glomerular Filt Rate > 60; Glucose 79 mg/dL (65-110); Magnesium 1.7 mg/dL (1.6-2.3); Potassium 4.1 mmol/L (3.4-5.0); Sodium 144 mmol/L (137-145)
[2021-05-28] MEDS: SODIUM CHLORIDE 0.9% IV 1,000 ML 75 ML IV CONT (06:57)
[2021-05-28 07:36] LABS: Glucose Point of Care 74 mg/dl (65-105)
[2021-05-28] MEDS: MAGNESIUM SULF 2 GM/WATER 50ML 2 GM/50 ML BAG IVPB (08:48)
[2021-05-28] MEDS: PANTOPRAZOLE 40 MG TABLET PO (08:56)
[2021-05-28] MEDS: ENOXAPARIN 40 MG/0.4 ML SYRINGE SUB-Q (08:56)
[2021-05-28] MEDS: CLOPIDOGREL BISULFATE 75 MG TABLET PO (08:56)
[2021-05-28] MEDS: lisinopriL 10 MG TABLET PO (08:56)
[2021-05-28] MEDS: FERROUS SULFATE 324 MG TABLET PO ×2 (08:56→18:17)
[2021-05-28] MEDS: ASPIRIN 81 MG ENTERIC TABLET PO (08:56)
[2021-05-28] MEDS: amLODIPine BESYLATE 5 MG TABLET PO (08:56)
[2021-05-28] MEDS: FAMOTIDINE 20 MG TABLET PO ×2 (08:57→18:17)
[2021-05-28] MEDS: OPTI-GEN TAB 1 TABLET PO ×2 (08:57→18:18)
[2021-05-28] MEDS: OMEGA 3 POLYUNSAT FATTY ACIDS 1 GM CAP PO (08:57)
[2021-05-28] MEDS: MEMANTINE 5 MG TABLET PO (08:57)
[2021-05-28] MEDS: FENOFIBRATE 160 MG TABLET PO (08:57)
--- NOTE | 2021-05-28 10:45 | P.PNIM_ITS ---
Progress Note: A&P Assessment and Plan (1) Bacteremia: Code(s): R78.81 - Bacteremia Status: Acute Assessment and Plan: * blood cultures Enterobacter Colace * Probably from the urine * Continue IV ceftriaxone for 5 days, change to Levaquin for 7 days * Adjust antibiotics to sensitivities (2) Urinary tract infection: Code(s): N39.0 - Urinary tract infection, site not specified Status: Acute Assessment and Plan: * UA cloudy, 1+ protein, 3+ leukocyte esterase, >75 WBC, Trace bacteria * Urine culture grew Enterobacter cloacae complex * WBC 5.8 today * Continue Ceftriaxone 1g IV daily for 5 days, change to levaquin for 7 days * Tailor antibiotics to sensitivities (3) Weakness: Code(s): R53.1 - Weakness Status: Acute Assessment and Plan: * Likely secondary to UTI and/or bacteremia * PT OT eval and treat (4) Falls: Qualifiers: Encounter type: subsequent encounter Qualified Code(s): W19.XXXD - Unspecified fall, subsequent encounter Code(s): W19.XXXA - Unspecified fall, initial encounter Status: Acute Assessment and Plan: * Fall precautions * PT/OT (5) ROBLES (acute kidney injury): Code(s): N17.9 - Acute kidney failure, unspecified Status: Acute Assessment and Plan: * Current BUN/Cr 12/0.90 * BUN/Cr 36/1.80 upon arrival * Likely to be pre renal azotemia * Will hold benazepril * DC IV fluids at this time * Monitor serum electrolytes and renal function * Patient's baseline is 0.9-1 (6) Type 2 diabetes mellitus with diabetic polyneuropathy: Code(s): E11.42 - Type 2 diabetes mellitus with diabetic polyneuropathy Status: Acute Assessment and Plan: * Current glucose is 79 * A1c 4.9 * Insulin Lispro sliding scale * Accu-checks Ac and HS * Hold oral hypoglycemics * Trend glucose * Adjust therapy as indicated (7) Benign prostatic hyperplasia with lower urinary tract symptoms: Code(s): N40.1 - Benign prostatic hyperplasia with lower urinary tract symptoms Status: Acute Assessment and Plan: * Continue tamsulosin * Bladder scan PRN * Trend output (8) Incomplete paraplegia: Code(s): G82.22 - Paraplegia, incomplete Status: Acute Assessment and Plan: * Patient uses a scooter to get by * Fall precautions (9) Dementia: Code(s): F03.90 - Unspecified dementia without behavioral disturbance Status: Acute Assessment and Plan: * Unchanged * Continue home Namenda (10) Frequent loose stools: Code(s): R19.7 - Diarrhea, unspecified Status: Acute Assessment and Plan: * KUB, Normal bowel gas pattern * abdomen is soft and nondistended * Sent for C diff and stool cultures, unlikely C.Diff, WBC is only 4.8 * Stool cultures came back negative Time Spent With Patient Time with patient: Greater than 35 minutes Subjective Date/time seen: 05/29/21 10:45 Interval history: Interval history: Date/Time: 05/24/21 22:57 Narrative: This is an 85-year-old male with past medical history significant for 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
--- NOTE | 2021-05-28 10:45 | PM.IMPN ---
Progress Note: A&P Assessment and Plan (1) Bacteremia: Code(s): R78.81 - Bacteremia Status: Acute Assessment and Plan: blood cultures Enterobacter Colace Probably from the urine Continue IV ceftriaxone for 5 days, change to Levaquin for 7 days Adjust antibiotics to sensitivities (2) Urinary tract infection: Code(s): N39.0 - Urinary tract infection, site not specified Status: Acute Assessment and Plan: UA cloudy, 1+ protein, 3+ leukocyte esterase, >75 WBC, Trace bacteria Urine culture grew Enterobacter cloacae complex WBC 5.8 today Continue Ceftriaxone 1g IV daily for 5 days, change to levaquin for 7 days Tailor antibiotics to sensitivities (3) Weakness: Code(s): R53.1 - Weakness Status: Acute Assessment and Plan: Likely secondary to UTI and/or bacteremia PT OT eval and treat (4) Falls: Qualifiers: Encounter type: subsequent encounter Qualified Code(s): W19.XXXD - Unspecified fall, subsequent encounter Code(s): W19.XXXA - Unspecified fall, initial encounter Status: Acute Assessment and Plan: Fall precautions PT/OT (5) ROBLES (acute kidney injury): Code(s): N17.9 - Acute kidney failure, unspecified Status: Acute Assessment and Plan: Current BUN/Cr 12/0.90 BUN/Cr 36/1.80 upon arrival Likely to be pre renal azotemia Will hold benazepril DC IV fluids at this time Monitor serum electrolytes and renal function Patient's baseline is 0.9-1 (6) Type 2 diabetes mellitus with diabetic polyneuropathy: Code(s): E11.42 - Type 2 diabetes mellitus with diabetic polyneuropathy Status: Acute Assessment and Plan: Current glucose is 79 A1c 4.9 Insulin Lispro sliding scale Accu-checks Ac and HS Hold oral hypoglycemics Trend glucose Adjust therapy as indicated (7) Benign prostatic hyperplasia with lower urinary tract symptoms: Code(s): N40.1 - Benign prostatic hyperplasia with lower urinary tract symptoms Status: Acute Assessment and Plan: Continue tamsulosin Bladder scan PRN Trend output (8) Incomplete paraplegia: Code(s): G82.22 - Paraplegia, incomplete Status: Acute Assessment and Plan: Patient uses a scooter to get by Fall precautions (9) Dementia: Code(s): F03.90 - Unspecified dementia without behavioral disturbance Status: Acute Assessment and Plan: Unchanged Continue home Namekari (10) Frequent loose stools: Code(s): R19.7 - Diarrhea, unspecified Status: Acute Assessment and Plan: KUB, Normal bowel gas pattern abdomen is soft and nondistended Sent for C diff and stool cultures, unlikely C.Diff, WBC is only 4.8 Stool cultures came back negative Time Spent With Patient Time with patient: Greater than 35 minutes Subjective Date/time seen: 05/29/21 10:45 Interval history: Interval history: Date/Time: 05/24/21 22:57 Narrative: This is an 85-year-old male with past medical history significant for 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 Patient was brought to the emergency room after he has been falling while transferring patient is usually able to do this on his on. Patient denies any fevers, any rigors ,any chills, any cough ,any shortness of breath or sputum production, no nausea ,no vomiting, no abdominal pain, no diarrhea. Preliminary workup was significant for a creatinine of 1.8, multiple wbc's are present in his urinalysis. Patient is being admitted for further evaluation, management and treatment. Date/time seen: 05/25/21 10:06 Patient is alert to self, disoriented to terri
[2021-05-28 11:42] LABS: Glucose Point of Care 72 mg/dl (65-105)
[2021-05-28 14:00] VITALS: BP 108/64; PULSE 83; RESP 16; TEMP 35.9; O2SAT 99
[2021-05-28 14:02] VITALS: BMI 22.1
[2021-05-28 14:09] LABS: EDCOVIDSCREEN Negative (Negative)
[2021-05-28 16:05] VITALS: O2SAT 97
[2021-05-28 16:20] LABS: Glucose Point of Care 99 mg/dl (65-105)
--- NOTE | 2021-05-28 17:51 | PCCCNOTE ---
Started PASRR screen, notification received that it was duplicate, was re-directed to duplicate showing Web Approved on 05/26/21, No Level II Required. Printed PASRR approval from 05/26/21 and closed beginning of new entry.
[2021-05-28] MEDS: SILVERGEL (ELTA) 45 ML 1 APPLIC TOPICAL (18:17)
[2021-05-28] MEDS: MIRTAZAPINE 15 MG TABLET PO (20:25)
[2021-05-28] MEDS: TAMSULOSIN HCL 0.4 MG CAPSULE PO (20:26)
[2021-05-28 21:48] LABS: Glucose Point of Care 95 mg/dl (65-105)
[2021-05-28 21:57] VITALS: BP 126/55; PULSE 81; RESP 16; TEMP 36.3; O2SAT 99
[2021-05-29 05:39] VITALS: BP 131/62; PULSE 74; RESP 16; TEMP 36.1; O2SAT 100
[2021-05-29 05:52] LABS: Basophils Percent Auto 0.6 % (0.2-1.2); Eosinophils Absolute Auto 0.2 K/mm3 (0-0.3); Hematocrit 30.8 % (42.0-52.0); Hemoglobin 9.6 g/dL (14.0-18.0); Immature Granulocyte Absolute 0.02 K/mm3 (0.00-0.031); Immature Granulocyte Percent A 0.4 % (0-0.5); Lymphocytes Absolute Auto 1.31 K/mm3 (0.9-3.2); Lymphocytes Percent Auto 24.8 % (18.3-44.2); Mean Corpuscular HGB Conc 31.2 g/dl (32-36); Mean Corpuscular Hemoglobin 29.5 pg (26-34); Mean Corpuscular Volume 94.8 fl (80-100); Mean Platelet Volume 10.3 fl (7.4-10.4); Monocytes Absolute Auto 0.3 K/mm3 (0.1-0.6); Neutrophils Absolute Auto 3.5 K/mm3 (1.3-6.7); Neutrophils Percent Auto 65.2 % (45.5-73.1); Platelet Count Result 272 k/mm3 (150-375); Red Blood Count 3.25 M/mm3 (4.6-6.20); Red Cell Distribution Width 16.6 % (11.5-14.5); White Blood Count 5.3 K/mm3 (4.5-10.0)
[2021-05-29 06:02] LABS: Alanine Aminotransferase 16 U/L (4-50); Albumin Level 2.7 g/dL (3.5-5.1); Alkaline Phosphatase 37 U/L (38-126); Anion Gap 4 mmol/L (8-16); Aspartate Amino Transferase 37 U/L (17-59); Bilirubin,Total 0.3 mg/dL (0.2-1.3); Blood Urea Nitrogen 17 mg/dL (9-20); Calcium 7.9 mg/dL (8.4-10.2); Carbon Dioxide 22 mmol/L (22-30); Chloride 117 mmol/L (98-107); Estimated CRCL calculation 54 ml/min; Estimated Glomerular Filt Rate > 60; Glucose 80 mg/dL (65-110); Potassium 4.1 mmol/L (3.4-5.0); Sodium 143 mmol/L (137-145)
[2021-05-29 07:56] LABS: Glucose Point of Care 77 mg/dl (65-105)
[2021-05-29] MEDS: FERROUS SULFATE 324 MG TABLET PO (08:30)
[2021-05-29] MEDS: CLOPIDOGREL BISULFATE 75 MG TABLET PO (08:31)
[2021-05-29] MEDS: ENOXAPARIN 40 MG/0.4 ML SYRINGE SUB-Q (08:31)
[2021-05-29] MEDS: ASPIRIN 81 MG ENTERIC TABLET PO (08:31)
[2021-05-29] MEDS: amLODIPine BESYLATE 5 MG TABLET PO (08:32)
[2021-05-29] MEDS: FAMOTIDINE 20 MG TABLET PO (08:33)
[2021-05-29] MEDS: MEMANTINE 5 MG TABLET PO (08:33)
[2021-05-29] MEDS: FENOFIBRATE 160 MG TABLET PO (08:33)
[2021-05-29] MEDS: lisinopriL 10 MG TABLET PO (08:33)
[2021-05-29] MEDS: OMEGA 3 POLYUNSAT FATTY ACIDS 1 GM CAP PO (08:34)
[2021-05-29] MEDS: OPTI-GEN TAB 1 TABLET PO (08:34)
[2021-05-29] MEDS: PANTOPRAZOLE 40 MG TABLET PO (08:34)
--- NOTE | 2021-05-29 10:15 | PM.DS ---
DS: Admitting Diagnosis Discharge Date 05/29/21 1015 Admitting Diagnosis UTI/Bacteremia DS: Discharge Diagnosis Discharge Diagnosis (1) Bacteremia: Code(s): R78.81 - Bacteremia Status: Acute Assessment and Plan: blood cultures Enterobacter Colace Probably from the urine Continue IV ceftriaxone for 5 days, change to Levaquin for 7 days Adjust antibiotics to sensitivities (2) Urinary tract infection: Code(s): N39.0 - Urinary tract infection, site not specified Status: Acute Assessment and Plan: UA cloudy, 1+ protein, 3+ leukocyte esterase, >75 WBC, Trace bacteria Urine culture grew Enterobacter cloacae complex WBC 5.3 today Continue Ceftriaxone 1g IV daily for 5 days, change to levaquin for 7 days Tailor antibiotics to sensitivities (3) Weakness: Code(s): R53.1 - Weakness Status: Acute Assessment and Plan: Likely secondary to UTI and/or bacteremia PT OT eval and treat (4) Falls: Qualifiers: Encounter type: subsequent encounter Qualified Code(s): W19.XXXD - Unspecified fall, subsequent encounter Code(s): W19.XXXA - Unspecified fall, initial encounter Status: Acute Assessment and Plan: Fall precautions PT/OT (5) ROBLES (acute kidney injury): Code(s): N17.9 - Acute kidney failure, unspecified Status: Acute Assessment and Plan: Current BUN/Cr 17/0.90 BUN/Cr 36/1.80 upon arrival Likely to be pre renal azotemia Will hold benazepril DC IV fluids at this time Monitor serum electrolytes and renal function Patient's baseline is 0.9-1 (6) Type 2 diabetes mellitus with diabetic polyneuropathy: Code(s): E11.42 - Type 2 diabetes mellitus with diabetic polyneuropathy Status: Acute Assessment and Plan: Current glucose is 80 A1c 4.9 Insulin Lispro sliding scale Accu-checks Ac and HS Hold oral hypoglycemics Trend glucose Adjust therapy as indicated (7) Benign prostatic hyperplasia with lower urinary tract symptoms: Code(s): N40.1 - Benign prostatic hyperplasia with lower urinary tract symptoms Status: Acute Assessment and Plan: Continue tamsulosin Bladder scan PRN Trend output (8) Incomplete paraplegia: Code(s): G82.22 - Paraplegia, incomplete Status: Acute Assessment and Plan: Patient uses a scooter to get by Fall precautions (9) Dementia: Code(s): F03.90 - Unspecified dementia without behavioral disturbance Status: Acute Assessment and Plan: Unchanged Continue home Namenda (10) Frequent loose stools: Code(s): R19.7 - Diarrhea, unspecified Status: Acute Assessment and Plan: KUB, Normal bowel gas pattern abdomen is soft and nondistended Sent for C diff and stool cultures, unlikely C.Diff, WBC is only 4.8 Stool cultures came back negative DS: Summary Hospital Course Hospital Course: Patient is an 82-year-old male with a past medical history of paraplegia secondary to spinal injury, type 2 diabetes, dyslipidemia, hypertension, BPH who presented the emergency room after falling. Patient was noted to be in acute renal failure and UA this chills or signs of infection. Patient was started on IV Rocephin. Urine culture and blood culture bottles grew Enterobacter Colace which was able to IV Rocephin. Patient received 5 days of IV Rocephin and has been changed to oral antibiotics. Patient has been working with PT and OT and has been able to get up to chair. Glucose has been under control. Renal function has returned back to baseline at 12/0.90. patient has had no complaints including chest pain, shortness a breath, nausea, vomiting, diarrhea, constipation, weakness or fatigue. Patient is stable for discharge. Status at Discharge Functional status at discharge: independent ambulation Overall status at di
--- NOTE | 2021-05-29 10:15 | P.DS_ITS ---
DS: Admitting Diagnosis Discharge Date 05/29/21 1015 Admitting Diagnosis UTI/Bacteremia DS: Discharge Diagnosis Discharge Diagnosis (1) Bacteremia: Code(s): R78.81 - Bacteremia Status: Acute Assessment and Plan: * blood cultures Enterobacter Colace * Probably from the urine * Continue IV ceftriaxone for 5 days, change to Levaquin for 7 days * Adjust antibiotics to sensitivities (2) Urinary tract infection: Code(s): N39.0 - Urinary tract infection, site not specified Status: Acute Assessment and Plan: * UA cloudy, 1+ protein, 3+ leukocyte esterase, >75 WBC, Trace bacteria * Urine culture grew Enterobacter cloacae complex * WBC 5.3 today * Continue Ceftriaxone 1g IV daily for 5 days, change to levaquin for 7 days * Tailor antibiotics to sensitivities (3) Weakness: Code(s): R53.1 - Weakness Status: Acute Assessment and Plan: * Likely secondary to UTI and/or bacteremia * PT OT eval and treat (4) Falls: Qualifiers: Encounter type: subsequent encounter Qualified Code(s): W19.XXXD - Unspecified fall, subsequent encounter Code(s): W19.XXXA - Unspecified fall, initial encounter Status: Acute Assessment and Plan: * Fall precautions * PT/OT (5) ROBLES (acute kidney injury): Code(s): N17.9 - Acute kidney failure, unspecified Status: Acute Assessment and Plan: * Current BUN/Cr 17/0.90 * BUN/Cr 36/1.80 upon arrival * Likely to be pre renal azotemia * Will hold benazepril * DC IV fluids at this time * Monitor serum electrolytes and renal function * Patient's baseline is 0.9-1 (6) Type 2 diabetes mellitus with diabetic polyneuropathy: Code(s): E11.42 - Type 2 diabetes mellitus with diabetic polyneuropathy Status: Acute Assessment and Plan: * Current glucose is 80 * A1c 4.9 * Insulin Lispro sliding scale * Accu-checks Ac and HS * Hold oral hypoglycemics * Trend glucose * Adjust therapy as indicated (7) Benign prostatic hyperplasia with lower urinary tract symptoms: Code(s): N40.1 - Benign prostatic hyperplasia with lower urinary tract symptoms Status: Acute Assessment and Plan: * Continue tamsulosin * Bladder scan PRN * Trend output (8) Incomplete paraplegia: Code(s): G82.22 - Paraplegia, incomplete Status: Acute Assessment and Plan: * Patient uses a scooter to get by * Fall precautions (9) Dementia: Code(s): F03.90 - Unspecified dementia without behavioral disturbance Status: Acute Assessment and Plan: * Unchanged * Continue home Namenda (10) Frequent loose stools: Code(s): R19.7 - Diarrhea, unspecified Status: Acute Assessment and Plan: * KUB, Normal bowel gas pattern * abdomen is soft and nondistended * Sent for C diff and stool cultures, unlikely C.Diff, WBC is only 4.8 * Stool cultures came back negative DS: Summary Hospital Course Hospital Course: Patient is an 82-year-old male with a past medical history of paraplegia secondary to spinal injury, type 2 diabetes, dyslipidemia, hypertension, BPH who presented the emergency room after falling. Patient was noted to be in acute renal failure and UA this chills or signs of infection. Patient was started on I
[2021-05-29] MEDS: SILVERGEL (ELTA) 45 ML 1 APPLIC TOPICAL (10:54)
--- NOTE | 2021-06-05 09:24 | PCWOUND ---
WOCN NOTE Pressure ulcer stage II to left lateral ankle was present on admission. pressure ulcer stage II to the medial sacrum developed during patient stay.
== END 2021-05-29 15:35 | DRG 690 ==
LOC: ANHED 22:36 → ANH3MEDSUR 05-25 07:04
PROVIDERS: Nurse Practitioner Family; Admitting Provider Internal Medicine; Emergency Provider Emergency Medicine; PCP Family Medicine Adolescent Medicine; Visit Provider Nurse Practitioner
DX: N39.0 Urinary tract infection, site not specified (principal); G82.22 Paraplegia, incomplete; N17.9 Acute kidney failure, unspecified; R78.81 Bacteremia; B95.2 Enterococcus as the cause of diseases classified elsewhere; T14.90XS Injury, unspecified, sequela; W05.2XXA Fall from non-moving motorized mobility scooter, initial encounter; Z20.822 Contact with and (suspected) exposure to COVID-19; Z66 Do not resuscitate; L89.522 Pressure ulcer of left ankle, stage 2; L89.152 Pressure ulcer of sacral region, stage 2; E11.42 Type 2 diabetes mellitus with diabetic polyneuropathy; E78.5 Hyperlipidemia, unspecified; F41.9 Anxiety disorder, unspecified; F03.90 Unspecified dementia, unspecified severity, without behavioral disturbance, psychotic disturbance, mood disturbance, and anxiety; H35.30 Unspecified macular degeneration; I25.2 Old myocardial infarction; I10 Essential (primary) hypertension; K21.9 Gastro-esophageal reflux disease without esophagitis; M19.90 Unspecified osteoarthritis, unspecified site; N40.1 Benign prostatic hyperplasia with lower urinary tract symptoms; R53.1 Weakness; R29.6 Repeated falls; R19.7 Diarrhea, unspecified; Z86.73 Personal history of transient ischemic attack (TIA), and cerebral infarction without residual deficits; Z86.718 Personal history of other venous thrombosis and embolism; Z87.442 Personal history of urinary calculi; Z79.84 Long term (current) use of oral hypoglycemic drugs; Z86.16 Personal history of COVID-19; Z98.41 Cataract extraction status, right eye; Z98.42 Cataract extraction status, left eye; Z90.49 Acquired absence of other specified parts of digestive tract; Z87.891 Personal history of nicotine dependence; Z79.82 Long term (current) use of aspirin; Z79.02 Long term (current) use of antithrombotics/antiplatelets
CPT/HCPCS: 36415; 51701; 70450; 71046; 74018; 80048; 80053; 81001; 82607; 82728; 82746; 82948; 83036; 83540; 83550; 83605; 83735; 84443; 84466; 85025; 85610; 85730; 87040; 87045; 87077; 87086; 87186; 87426; 87427; 87493; 92526; 92610; 92611; 93005; 96361; 96365; 96372; 96375; 97110; 97161; 97165; 97530; 97535; 99285; A9270; C9803; G0378; J0696; J1650; J3475; J7030

== ENCOUNTER 2021-12-20 10:26 | Emergency (ER) | payer MEDICARE, SELFPAY ==
--- NOTE | ~2021-12-20 | XR_ITS ---
XR chest 2V 12/20/2021 11:20 Indication: Cough and congestion with fever Procedure: 2 view chest Comparison: Comparison to multiple prior studies sequentially, with oldest reviewed study dated 08/2019. Findings: There are chronic interstitial infiltrates of the lower lungs, likely atelectasis/fibrosis. No acute focal pneumonia, edema or effusion. No pneumothorax. Distal right clavicular osteotomy defe ct noted. Impression: 1: Chronic bibasilar interstitial infiltrates, most likely atelectasis/fibrosis. Reviewed, dictated and finalized at location A. Impression: 1: Chronic bibasilar interstitial infiltrates, most likely atelectasis/fibrosis .
[2021-12-20 10:50] VITALS: BP 97/51; PULSE 71; RESP 20; TEMP 37.2; O2SAT 100
--- NOTE | 2021-12-20 11:03 | ED.URI ---
HPI - URI/Sore Throat General Chief Complaint: Upper Respiratory Infection Stated Complaint: chest congestion, weakness Time Seen by Provider: 12/20/21 10:55 Source: patient and family Mode of arrival: ambulatory Limitations: no limitations History of Present Illness HPI Narrative: Mr. Rowan is an 86-year-old male patient presenting to clinic today with complaints of chest congestion, cough, weakness, and shortness of breath. He reports his symptoms have been ongoing for approximately 2-3 days. He denies any fever or chills. He was seen by nurse this morning and she suggested that he come to the Urgent Care to be evaluated as his blood pressure was low. MD elicited complaint: sore throat and nasal congestion Related Data Home Medications Medication Instructions Recorded Confirmed aspirin 81 mg tablet,delayed 81 mg PO DAILY 02/15/19 12/20/21 release PreserVision AREDS 1 tab-cap BID 05/25/21 12/20/21 omega-3 fatty acids 1 cap PO DAILY 05/25/21 12/20/21 Allergies Allergy/AdvReac Type Severity Reaction Status Date / Time aspirin AdvReac Mild Upset Verified 12/20/21 11:21 stomach Review of Systems Review of Systems: Pertinent positives per HPI. Patient denies any fever, chills, rash, headache, visual changes, dizziness, cough, shortness of breath, chest pain, palpitations, nausea, vomiting, diarrhea, constipation, abdominal pain, or any urinary issues. [facility] Past Medical History Medical History Anxiety Arthritis Cerebrovascular accident (~08/2011) With dysphagia and dysarthria, resolved. 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 With lower extremity weakness and bilateral footdrop. Kidney stone Kidney stones Macular degeneration Seasonal allergies Ureteral stone Surgical History Surgical History History of bilateral cataract extraction History of laparoscopic cholecystectomy (~01/2013) History of lumbar surgery History of repair of right rotator cuff (~05/1999) History of right inguinal hernia repair Family History Family History Father Emphysema of lung Colon cancer Mother Heart disease Pacemaker Sibling Parkinson disease Social History Social History Social History: Mr. Rowan is and lives in his own home in [place]. He served in the as a young man. 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 He had previously worked as a [employer]. He smoked 2 to 3 packs of cigarettes per day for about 40 years and quit in 1988. He denies alcohol and illicit substance use. His daughter, Leonarda Isbell, is his healthcare power of record searcher and he wishes to be a full code. Smoking packs per day: 3 Smoking cigarettes per day: 60.0 Years smoked: 38 Smoking pack-years: 114.00 Smoking status: Former smoker Tobacco type: cigarettes Alcohol intake: never Substance use: never Substance use type: does not use Gender identity (if verbalized by the patient): Male Spiritual care concerns: No Agree to blood products: Yes Comments At the time of my signature, I reviewed and agree with the nursing past medical, surgical, social, and family history. There is no relevant family history pertinent to the patient complaint. Exam Narrative: General: Well-developed, well nourished, in no apparent distress Head: Normocephalic, atraumatic Eyes: Pupils equally round and reactive to light bilaterally, EOM intact, sclera and conjunctive clear, no di
--- NOTE | 2021-12-20 13:43 | PC.NURSE ---
1142- SERGER called [facility], and made arrangements for transfer to er for further eval. 1149- family states that they called [facility], and spoke with the nurse to inform them, and then pts son came out and said that they decided to not have him taken to the er, since there is a nurse there at his assisted living, and they can watch him and then take him to er if anything worsens. SERGER made aware of family decision. 1153- pt left with family per own w/c.
--- NOTE | 2021-12-20 13:51 | PC.NURSE ---
1153-- er notified of son signing pt out ama.
== END 2021-12-20 11:53 | disposition left against medical advice (07) ==
PROVIDERS: Emergency Provider Nurse Practitioner Family; PCP Family Medicine Adolescent Medicine
DX: U07.1 COVID-19 (principal); R06.02 Shortness of breath; I95.9 Hypotension, unspecified; R53.1 Weakness; Z79.82 Long term (current) use of aspirin; Z86.73 Personal history of transient ischemic attack (TIA), and cerebral infarction without residual deficits; Z87.891 Personal history of nicotine dependence
CPT/HCPCS: 71046; 87426; 87804; 99213; C9803; G0463

== ENCOUNTER 2022-01-14 01:26 | Emergency (ER) | payer MEDICARE, SELFPAY ==
--- NOTE | ~2022-01-14 | XR_ITS ---
EXAMINATION: XR hip LT 2V w AP pelvis DATE: 01/14/2022 04:37 INDICATION: Left hip pain. Fall. TECHNIQUE: An anteroposterior view of the pelvis and 2 views of left hip were obtained. COMPARISON: Left hip and pelvis radiographs 02/15/2019 FINDINGS: Bone alignment is normal. No fracture. There are changes of posterior fusion procedure at L 4-L5. There is mild osteoarthritis of the hips. IMPRESSION: 1. Mild osteoarthritis of the hips. Reviewed, dictated and finalized at location A. URERS
[2022-01-14 01:49] VITALS: BP 127/57; PULSE 79; RESP 18; TEMP 36.5; O2SAT 100
--- NOTE | 2022-01-14 04:20 | ED.GENADULT ---
HPI - General Adult General Chief complaint: Fall Stated complaint: FALL, HIP PAIN Time Seen by Provider: 01/14/22 02:57 History of Present Illness HPI narrative: This is an 86-year-old male presenting ED after he fell out of his wheelchair. Patient is paraplegic. He says that the wheels were unlocked he fell to the ground and landed on his left hip. He denies head trauma or loss of consciousness. The patient cannot move his legs at baseline since he is paraplegic. He denies any other traumatic injuries. He denies any other symptoms at this time. Related Data Home Medications Medication Instructions Recorded Confirmed aspirin 81 mg tablet,delayed 81 mg PO DAILY 02/15/19 12/20/21 release PreserVision AREDS 1 tab-cap BID 05/25/21 12/20/21 omega-3 fatty acids 1 cap PO DAILY 05/25/21 12/20/21 Allergies Allergy/AdvReac Type Severity Reaction Status Date / Time aspirin AdvReac Mild Upset Verified 12/20/21 11:21 stomach Review of Systems Review of Systems: CONSTITUTIONAL: Denies night sweats. EYES: No eye pain ENT: Denies rhinorrhea CARDIOVASCULAR: Denies palpitations RESPIRATORY: Denies hemoptysis GASTROINTESTINAL: Denies hematemesis GENITOURINARY: Denies hematuria. SKIN: Denies rash MUSCULOSKELETAL: Denies myalgia. NEUROLOGIC: Denies weakness. PSYCHIATRIC: Denies delusions PMFSH Past Medical History Medical History Anxiety Arthritis Cerebrovascular accident (~08/2011) With dysphagia and dysarthria, resolved. 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 With lower extremity weakness and bilateral footdrop. Kidney stone Kidney stones Macular degeneration Seasonal allergies Ureteral stone Surgical History Surgical History History of bilateral cataract extraction History of laparoscopic cholecystectomy (~01/2013) History of lumbar surgery History of repair of right rotator cuff (~05/1999) History of right inguinal hernia repair Family History Family History Father Emphysema of lung Colon cancer Mother Heart disease Pacemaker Sibling Parkinson disease Social History Social History Social History: Mr. Rowan is and lives in his own home in [place]. He served in the as a young man. 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 He smoked 2 to 3 packs of cigarettes per day for about 40 years and quit in 1988. He denies alcohol and illicit substance use. His daughter, Leonarda Isbell, is his healthcare power of civil attorney and he wishes to be a full code. Smoking packs per day: 3 Smoking cigarettes per day: 60.0 Years smoked: 38 Smoking pack-years: 114.00 Smoking status: Former smoker Tobacco type: cigarettes Alcohol intake: never Substance use: never Substance use type: does not use Gender identity (if verbalized by the patient): Male Spiritual care concerns: No Agree to blood products: Yes Exam Narrative: APPEARANCE: patient appears old and frail Head: atraumatic. EYES: EOMI, NOSE: Atraumatic NECK: Trachea midline RESPIRATORY: No increased rate of breathing CARDIOVASCULAR: RRR, Pulses +2 in the lower extremities. ABDOMINAL: Non-distended MUSCULOSKELETAl: no obvious deformities. Some tenderness on passive range of motion of the left leg with internal external rotation. NEURO: Alert. Moving the upper extremities, lower extremities are paralyzed. SKIN:: Warm, dry. Normal color PSYCHIATRIC: Norm
[2022-01-14] MEDS: ACETAMINOPHEN 500 MG TABLET 1000 MG PO (04:38)
--- NOTE | 2022-01-14 05:00 | PC.NURSE ---
Patient states it is his left hip that hurts and not his right hip. EDP Helga aware.
[2022-01-14 05:53] VITALS: BP 118/67; PULSE 70; RESP 18; O2SAT 100
[2022-01-14 05:55] VITALS: BP 120/68; PULSE 72; RESP 18; O2SAT 100
== END 2022-01-14 06:17 ==
PROVIDERS: Emergency Provider Emergency Medicine; PCP Family Medicine Adolescent Medicine
DX: S79.912A Unspecified injury of left hip, initial encounter (principal); G82.22 Paraplegia, incomplete; T14.90XS Injury, unspecified, sequela; H35.30 Unspecified macular degeneration; K21.9 Gastro-esophageal reflux disease without esophagitis; I25.2 Old myocardial infarction; D64.9 Anemia, unspecified; M19.90 Unspecified osteoarthritis, unspecified site; Z86.16 Personal history of COVID-19; Z86.73 Personal history of transient ischemic attack (TIA), and cerebral infarction without residual deficits; Z87.442 Personal history of urinary calculi; Z87.891 Personal history of nicotine dependence; Z79.82 Long term (current) use of aspirin; W05.0XXA Fall from non-moving wheelchair, initial encounter; X58.XXXS Exposure to other specified factors, sequela
CPT/HCPCS: 73502; 99283; A9270

== ENCOUNTER 2022-04-12 19:21 | Emergency (ER) | payer MEDICARE, SELFPAY ==
--- NOTE | ~2022-04-12 | XR_ITS ---
EXAMINATION: XR chest 2V Exam Date/Time: 04/12/2022 19:56 EXTRACORPOREAL CIRCULATION SPECIALIST HISTORY: aspiration ? Comparison: 12/20/2021. RESULT: Lines, tubes, and devices: None. Lungs and pleura: Low lung volumes with crowding. Senescent changes. Bibasilar scar/atelectasis. Cardiomediastinal silhouette: Stable. Other: No acute osseous or upper abdominal finding. IMPRESSION: No acute cardiopulmonary process. Reviewed, dictated and finalized at location K. ACORPOREAL CIRCULATION SPECIALIST
[2022-04-12 19:22] VITALS: BP 152/72; PULSE 81; RESP 16; TEMP 36.2; O2SAT 99
[2022-04-12 21:31] VITALS: O2SAT 100
[2022-04-12 21:34] VITALS: BP 149/79; PULSE 91; RESP 26; O2SAT 98
--- NOTE | 2022-04-12 22:20 | PC.NURSE ---
Pt able to drink water without difficulty.
--- NOTE | 2022-04-12 22:58 | ED.GENADULT ---
HPI - General Adult General Chief complaint: Unspecified Stated complaint: poss aspiration Time Seen by Provider: 04/12/22 22:07 History of Present Illness HPI narrative: Patient is a 86-year-old gentleman who presents emerged department with chief complaint of choking on a pill. Patient is a resident of a local care home and had several pills got stuck while he was swallowing the patient was coughing afterwards the patient currently states he has no shortness of breath denies chest pain reports that he is able to swallow Related Data Home Medications Medication Instructions Recorded Confirmed aspirin 81 mg tablet,delayed 81 mg PO DAILY 02/15/19 03/26/22 release PreserVision AREDS 1 tab-cap BID 05/25/21 03/26/22 omega-3 fatty acids 1 cap PO DAILY 05/25/21 03/26/22 Allergies Allergy/AdvReac Type Severity Reaction Status Date / Time aspirin AdvReac Mild Upset Verified 04/12/22 19:32 stomach Review of Systems Review of Systems: A 10 system review of systems was completed on the patient and is negative except for what is stated in the HPI. Nursing and ancillary documentation was reviewed. [facility] Past Medical History Medical History Anxiety Arthritis Cerebrovascular accident (~08/2011) With dysphagia and dysarthria, resolved. Chronic anemia COVID-19 CVA (cerebral vascular accident) No residual DDD (degenerative disc disease) Gastroesophageal reflux disease H/O blood clots History of non-ST elevation myocardial infarction (NSTEMI) 01/2021 Kidney stone Kidney stones Macular degeneration Seasonal allergies Ureteral stone Surgical History Surgical History History of bilateral cataract extraction History of laparoscopic cholecystectomy (~01/2013) History of lumbar surgery History of repair of right rotator cuff (~05/1999) History of right inguinal hernia repair Family History Family History Father Emphysema of lung Colon cancer Mother Heart disease Pacemaker Sibling Parkinson disease Social History Social History Social History: Mr. Rowan is and lives in his own home in [place]. He served in the as a young man. 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 He smoked 2 to 3 packs of cigarettes per day for about 40 years and quit in 1988. He denies alcohol and illicit substance use. His daughter, Leonarda Isbell, is his healthcare power of freight unloader and he wishes to be a full code. Smoking packs per day: 3 Smoking cigarettes per day: 60.0 Years smoked: 38 Smoking pack-years: 114.00 Smoking status: Former smoker Tobacco type: cigarettes Alcohol intake: never Substance use: never Substance use type: does not use Living arrangements: alone Occupation/Education: retired Gender identity (if verbalized by the patient): Male Spiritual care concerns: No Agree to blood products: Yes Exam Narrative: GENERAL: Well-appearing, well-nourished, and in no acute distress. HEAD: Normocephalic, atraumatic. EYES: PERRLA and EOMI. ENT: Nares clear, no rhinorrhea or epistaxis. Mucous membranes moist. NECK: Supple. CHEST: Clear to auscultation. No respiratory distress. HEART: Regular rate and rhythm. No murmur heard. Normal peripheral pulses. ABDOMEN: Soft, nontender, nondistended, normal active bowel sounds. EXTREMITIES: Normal range of motion. No edema. SKIN: Warm, dry, no rash. NEURO: No focal deficits. Alert and oriented x3. PSYCH: Normal mood and affect. Course Vital Signs Vital signs: Vital Signs Temperature 36.2 C L 04/12/22 19:22 Pulse Rate 81 04/12/22 19:22 Respiratory Rate 16 04/12/22 19:22 Blood Pressure 152/72 H 04/12/22
[2022-04-12 23:13] VITALS: BP 138/69; PULSE 62; RESP 16; O2SAT 100
[2022-04-13 00:11] VITALS: BP 132/64; PULSE 68; RESP 20; O2SAT 99
[2022-04-13 01:44] VITALS: PULSE 65; RESP 15; O2SAT 99
[2022-04-13 02:16] VITALS: BP 148/74; PULSE 66; RESP 18; O2SAT 98
== END 2022-04-13 02:48 ==
PROVIDERS: Emergency Provider Emergency Medicine; PCP Family Medicine Adolescent Medicine
DX: R05.9 Cough, unspecified (principal); D64.9 Anemia, unspecified; I25.2 Old myocardial infarction; K21.9 Gastro-esophageal reflux disease without esophagitis; H35.30 Unspecified macular degeneration; M19.90 Unspecified osteoarthritis, unspecified site; Z87.442 Personal history of urinary calculi; Z86.16 Personal history of COVID-19; Z86.73 Personal history of transient ischemic attack (TIA), and cerebral infarction without residual deficits; Z79.82 Long term (current) use of aspirin; Z98.42 Cataract extraction status, left eye; Z98.41 Cataract extraction status, right eye; Z87.891 Personal history of nicotine dependence
CPT/HCPCS: 71046; 99283

== ENCOUNTER 2022-04-22 16:44 | Inpatient (IN) | payer MEDICARE, SELFPAY ==
[2022-04-22] VITALS (48 sets, daily range): BP systolic 111–150; BP diastolic 55–107; PULSE 65–83; RESP 17–25; TEMP 36.4–37.2; O2SAT 91–100; BMI 25.2
--- NOTE | ~2022-04-22 | CT_ITS ---
EXAMINATION: CTA chest PE protocol DATE: 04/22/2022 20:24 INDICATION: Shortness of breath, COVID 19 positive TECHNIQUE: Computed tomography angiography (CTA) of the chest was performed with 100 mL Omnipaque-350 intravenous contrast timed to evaluate the pulmonary arteries. Coronal maximum intensity projection 3D-reconstructions were created by the technologist. The dose-length product (DLP) was 544.89 mGy-cm. Automated exposure control and iterative reconstruction technique were employed. COMPARISON: None. FINDINGS: The pulmonary arteries are well-opacified. There are pulmonary emboli in subsegmental branc hes of the right middle lobe and left lower lobe. There is severe emphysema of the upper lobes. There are airspace opacities of the lower lobes. There is bronchial wall in the lower lobes There appear t o be areas of honeycombing in the dependent aspect of the lower lobes. No pleural effusion or pneumot horax. There is mild mediastinal lymphadenopathy. The heart size is normal. There is moderate thoraci c spondylosis. The gallbladder is surgically absent. IMPRESSION: 1. Pulmonary emboli in subsegmental branches of the right middle and left lower lobes. 2. Bronchial wall thickening and airspace opacities of the lower lobes, consistent with bronchiolitis and pneumonia superimposed on emphysema and chronic interstitial lung disease. 3. Mild mediastinal lymphadenopathy, likely reactive. These findings were discussed with Karen Villalobos PA-C in the Emergency Department at 2043 ho urs on 04/22/2022. Reviewed, dictated and finalized at location F. MAKER FLOOR IMPRESSION: 1. Pulmonary emboli in subsegmental branches of the right middle and left lower lobes. 2. Bronchial wall thickening and airspace opacities of the lower lobes, consist ent with bronchiolitis and pneumonia superimposed on emphysema and chronic inte rstitial lung disease. 3. Mild mediastinal lymphadenopathy, likely reactive. These findings were discussed with Karen Villalobos PA-C in the Emergency Department at 2043 hours on 04/22/2022.
--- NOTE | ~2022-04-22 | XR_ITS ---
EXAMINATION: XR chest 1V portable INDICATION: Shortness of breath, COVID 19 positive TECHNIQUE: Portable AP chest at 1714 hours COMPARISON: 04/12/2022 FINDINGS: There are minimal airspace opacities of the lung bases. No pleural effusion or pneumothorax identified. The cardiomediastinal silhouette is normal. IMPRESSION: 1. Minimal bibasilar airspace opacities, consistent with atelectasis versus pneumonia. Reviewed, dictated and finalized at location F. RLOCKING AND SIGNAL MECHANIC IMPRESSION: 1. Minimal bibasilar airspace opacities, consistent with atelectasis versus pne umonia.
--- NOTE | ~2022-04-22 | CT_ITS ---
EXAMINATION: CT brain wo con INDICATION: Unilateral weakness COMPARISON: 05/24/2021 TECHNIQUE: Standard unenhanced head CT. The dose-length product (DLP) was 605.33 mGy-cm. The mA was a djusted according to patient size. Iterative reconstruction technique was employed. FINDINGS: There is no acute intraparenchymal hemorrhage. No evidence of mass lesion. No evidence of a cute infarction. Again noted are areas of prior infarction in the right occipital lobe, right parieto -occipital region, left frontal lobe, basal ganglia and thalami. There is mild periventricular and luna bcortical hypodensity probably related to small vessel ischemic disease. There is mild prominence of the sulci and ventricles related to cerebral atrophy. Intracranial calcified cerebral atherosclerosis is noted. There are no extra-axial collections. There is no mass effect or midline shift. Changes in the globes are likely from ocular lens surgery. The visualized sinuses and mastoid air cells are wel l aerated. IMPRESSION: 1. Areas of prior infarction without acute intracranial abnormality. 2. Age related findings. Reviewed, dictated and finalized at location F. H DIGGER
--- NOTE | 2022-04-22 17:04 | ECG_ITS ---
Measurements Intervals [place] Rate: 78 P: [place]: 0 QRS: 267 QRSD: 150 T: 53 QT: 393 QTc: 449 Interpretive Statements SINUS RHYTHM ATRIAL PREMATURE COMPLEXES RIGHT AXIS DEVIATION RIGHT BUNDLE BRANCH BLOCK BASELINE ARTIFACT- V5-V6 ABNORMAL ECG COMPARED TO ECG 05/24/2021 20:53:57 NO SIGNIFICANT CHANGES Electronically Signed On 04-22-2022 18:47:50 PETROPHYSICAL ENGINEER by Tommy Kaye D.O.
--- NOTE | 2022-04-22 17:15 | ED.GENADULT ---
HPI - General Adult General Chief complaint: Unspecified <Karen Villalobos PA-C - Last Filed: 04/24/22 10:48> Stated complaint: weakness, COVID + <Karen Villalobos PA-C - Last Filed: 04/24/22 10:48> Time Seen by Provider: 04/22/22 16:58 <Karen Villalobos PA-C - Last Filed: 04/24/22 10:48> History of Present Illness HPI narrative: Patient is a 86-year-old male sent here from his assisted living with a history of paraplegia here for evaluation of generalized weakness. Patient is a poor historian and is really unsure why he is here, states that he just feels weak all over. He does know that he tested positive for COVID and has been feeling somewhat short of breath with a cough. He denies any chest pain, leg swelling, chills or fevers, nausea or vomiting. Spoke with Jenny from the assisted living facility, states that patient normally is able to assist with transfers but today he was unable to and much more lethargic than usual. <Karen Villalobos PA-C - Last Filed: 04/24/22 10:48> Related Data Home medications: Home Medications Medication Instructions Recorded Confirmed aspirin 81 mg tablet,delayed 81 mg PO DAILY 02/15/19 04/22/22 release (Adult Low Dose Aspirin) omega-3 fatty acids 1,000 mg PO DAILY 05/25/21 04/22/22 hydrocodone 7.5 mg-acetaminophen 7.5 - 325 tablet PO BID PRN pain 04/22/22 04/23/22 325 mg tablet miconazole nitrate 2 % topical 1 applic topical BID PRN tabitha area 04/22/22 04/23/22 cream (Aminta Antifungal) amlodipine 5 mg-benazepril 10 mg 1 cap PO DAILY 04/23/22 04/22/22 capsule (Lotrel) clopidogrel 75 mg tablet (Plavix) 75 mg PO DAILY 04/23/22 04/22/22 cyanocobalamin (vitamin B-12) See Rx Instructions .Route .COMPLEX 04/23/22 04/23/22 1,000 mcg/mL injection solution (Dodex) famotidine 20 mg tablet (Acid 20 mg PO BID 04/23/22 04/22/22 Solutions Market Consultant (famotidine)) ferrous sulfate 325 mg (65 mg 324 mg PO BID 04/23/22 04/22/22 iron) tablet (FeroSul) lorazepam 0.5 mg tablet (Ativan) 0.5 mg PO BID PRN Anxiety 04/23/22 04/22/22 memantine 5 mg tablet (Namenda) 5 mg PO DAILY 04/23/22 04/22/22 mirtazapine 15 mg tablet (Remeron) 15 mg PO QHS 04/23/22 04/22/22 tamsulosin 0.4 mg capsule (Flomax) 0.4 mg PO QHS 04/23/22 04/22/22 <Karen Villalobos PA-C - Last Filed: 04/24/22 10:48> Allergies/adverse reactions: Allergies Allergy/AdvReac Type Severity Reaction Status Date / Time aspirin AdvReac Mild Upset Verified 04/12/22 19:32 stomach <Karen Villalobos PA-C - Last Filed: 04/24/22 10:48> Review of Systems Review of Systems: Gen.: Reports weakness Eyes: Denies eye pain or visual change ENT: Denies congestion Respiratory: Denies shortness of breath or cough CV: Denies chest pain or palpitations GI: Denies abdominal pain nausea, emesis or diarrhea : denies burning, urgency, frequency or hematuria Musculoskeletal: Denies back pain or muscle pain Neuro: Denies numbness, tingling, weakness or focal weakness Skin: Denies rash Except as documented, all other systems reviewed and negative <Karen Villalobos PA-C - Last Filed: 04/24/22 10:48> [facility] Past Medical History Medical History: Medical History Anxiety Arthritis Cerebrovascular accident (~08/2011) With dysphagia and dysarthria, resolved. Chronic anemia COVID-19 CVA (cerebral vascular accident) No residual DDD (degenerative disc disease) Gastroesophageal reflux disease H/O blood clots History of non-ST elevation myocardial infarction (NSTEMI) 01/2021 Kidney stone Kidney stones Macular degeneration Seasonal allergies Ureteral stone <Karen Villalobos PA-C - Last Filed: 04/24/22 10:48> Surgical History Surgical History: Surgical History History of bilateral cataract extraction History of laparoscopic cholecystectomy (~01/2013
[2022-04-22] MEDS: SODIUM CHLORIDE 0.9% IV 1,000 ML 999 ML IV CONT (17:27)
[2022-04-22 17:39] LABS: Basophils Percent Auto 0.5 % (0.2-1.2); Eosinophils Absolute Auto 0.2 K/mm3 (0-0.3); Eosinophils Percent Auto 2.7 % (0-4.4); Hematocrit 33.7 % (42.0-52.0); Hemoglobin 10.6 g/dL (14.0-18.0); Immature Granulocyte Absolute 0.01 K/mm3 (0.00-0.031); Immature Granulocyte Percent A 0.2 % (0-0.5); Lymphocytes Absolute Auto 0.75 K/mm3 (0.9-3.2); Lymphocytes Percent Auto 11.3 % (18.3-44.2); Mean Corpuscular HGB Conc 31.5 g/dl (32-36); Mean Corpuscular Hemoglobin 30.7 pg (26-34); Mean Corpuscular Volume 97.7 fl (80-100); Mean Platelet Volume 10.2 fl (7.4-10.4); Monocytes Absolute Auto 0.5 K/mm3 (0.1-0.6); Monocytes Percent Auto 7.5 % (2.6-8.5); Neutrophils Absolute Auto 5.2 K/mm3 (1.3-6.7); Neutrophils Percent Auto 77.8 % (45.5-73.1); Platelet Count Result 281 k/mm3 (150-375); Red Blood Count 3.45 M/mm3 (4.6-6.20); Red Cell Distribution Width 14.6 % (11.5-14.5); White Blood Count 6.6 K/mm3 (4.5-10.0)
[2022-04-22 18:07] LABS: Alanine Aminotransferase 15 U/L (6-50); Albumin Level 3.8 g/dL (3.5-5.1); Alkaline Phosphatase 62 U/L (38-126); Anion Gap 9 mmol/L (8-16); Aspartate Amino Transferase 22 U/L (17-59); Bilirubin,Total 0.7 mg/dL (0.2-1.3); Blood Urea Nitrogen 30 mg/dL (9-20); Calcium 8.7 mg/dL (8.4-10.2); Carbon Dioxide 22 mmol/L (22-30); Chloride 111 mmol/L (98-107); Estimated CRCL calculation 33 ml/min; Estimated Glomerular Filt Rate 48; Glucose 89 mg/dL (65-110); Sodium 142 mmol/L (137-145)
[2022-04-22 18:11] LABS: Appearance Urine Slightly Cloudy (Clear); Bilirubin Urine Negative (Negative); Blood Urine Trace-lysed (Negative); Color Urine Dark Yellow (Yellow); Glucose Urine UA Negative (Negative); Ketones Urine Negative (Negative); Leukocyte Esterase Ur 2+ LEU/UL (Negative); Nitrate Urine Negative (Negative); Protein Urine Trace mg/dL (Negative); Specific Grav Ur 1.015 (1.001-1.035); Urobilinogen Urine 0.2 mg/dL (<2.0); pH Urine 5.5 (5.0-9.0)
[2022-04-22 18:18] LABS: Add Urine Microscopic? YES
[2022-04-22 18:30] LABS: Bacteria Urine 4+ /hpf; Mucus Urine Rare /lpf; RBC Urine 0-2 /hpf (0-2); Squamous Epithelial Cell Urine Rare /hpf (Few); WBC Urine 51-75 /hpf
[2022-04-22 18:57] LABS: Potassium 3.7 mmol/L (3.4-5.0)
--- NOTE | 2022-04-22 18:58 | PC.NURSE ---
pt resting comfortably, in bed, has call light. no needs or concerns at this time
--- NOTE | 2022-04-22 19:23 | PC.NURSE ---
unable to pause administration on APR for rocephin. cultures were not ordered and are now ordered and to be drawn before start of rocephin. Oncoming nurse made aware and to start medication after cultures.
--- NOTE | 2022-04-22 21:28 | PC.NURSE ---
Daughter called for update. All questions and concerns were addressed at this time.
--- NOTE | 2022-04-22 21:32 | PM.IMHP ---
H&P: HPI History of Present Illness Date/Time: 04/22/22 21:32 Chief Complaint: 86 years old male with past medical history of CVA on aspirin and Plavix coronary artery disease status post myocardial infarction dementia hypertension presented from assisted living with worsening mental status and generalized weakness patient according to the assisted living staff who normally is able to transfer but now it is becoming very weak and he is more lethargic patient was recently diagnosed with COVID-19 positive he is complaining of cough and shortness of breath patient was not hypoxic on admission in the ER CT scan of the chest was done showed pulmonary embolism atelectasis and probable pneumonia patient is afebrile UA also was done was abnormal patient was admitted to the hospital for further evaluation and treatment of COVID-19 pneumonia UTI altered mental status generalized weakness Review of Systems Review of Systems: Per historian history is limited as above [facility] Past Medical History Medical History Anxiety Arthritis Cerebrovascular accident (~08/2011) With dysphagia and dysarthria, resolved. Chronic anemia COVID-19 CVA (cerebral vascular accident) No residual DDD (degenerative disc disease) Gastroesophageal reflux disease H/O blood clots History of non-ST elevation myocardial infarction (NSTEMI) 01/2021 Kidney stone Kidney stones Macular degeneration Seasonal allergies Ureteral stone Surgical History Surgical History History of bilateral cataract extraction History of laparoscopic cholecystectomy (~01/2013) History of lumbar surgery History of repair of right rotator cuff (~05/1999) History of right inguinal hernia repair Family History Family History Father Emphysema of lung Colon cancer Mother Heart disease Pacemaker Sibling Parkinson disease Social History Social History Social History: Mr. Rowan is and lives in his own home in [place]. He served in the as a young man. 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 He smoked 2 to 3 packs of cigarettes per day for about 40 years and quit in 1988. He denies alcohol and illicit substance use. His daughter, Leonarda Isbell, is his healthcare power of assistant attorney general and he wishes to be a full code. Smoking packs per day: 3 Smoking cigarettes per day: 60.0 Years smoked: 38 Smoking pack-years: 114.00 Smoking status: Former smoker Tobacco type: cigarettes Alcohol intake: never Substance use: never Substance use type: does not use Living arrangements: alone Occupation/Education: retired Gender identity (if verbalized by the patient): Male Spiritual care concerns: No Agree to blood products: Yes Meds Home Medications and Allergies Home Medications Medication Instructions Recorded Confirmed Type aspirin 81 mg tablet,delayed 81 mg PO DAILY 02/15/19 03/26/22 History release PreserVision AREDS 1 tab-cap BID 05/25/21 03/26/22 History omega-3 fatty acids 1 cap PO DAILY 05/25/21 03/26/22 History amlodipine 5 mg-benazepril 10 mg 1 cap PO DAILY #30 ea 03/26/22 03/26/22 Rx capsule clopidogrel 75 mg tablet 75 mg PO DAILY #30 ea 03/26/22 03/26/22 Rx cyanocobalamin (vitamin B-12) See Rx Instructions .Route 03/26/22 03/26/22 Rx 1,000 mcg/mL injection solution .COMPLEX #1 mL famotidine 20 mg tablet 20 mg PO BID #60 ea 03/26/22 Rx fenofibrate 160 mg tablet 160 mg PO DAILY #30 ea 03/26/22 03/26/22 Rx ferrous sulfate 325 mg (65 mg 324 mg PO BIDWM #60 tabs 03/26/22 03/26/22 Rx iron) tablet lorazepam 0.5 mg tablet 0.5 mg PO BID Anxiety #60 tabs 03/26/22 03/26/22 Rx memantine 5 mg tablet 5 mg PO DAILY #30 ea 03/26/2203/26
[2022-04-22 22:21] LABS: INR 1.1
[2022-04-22 22:22] LABS: Partial Thromboplastin Time 41.8 SECONDS (22.3-36.8)
[2022-04-22] MEDS: ENOXAPARIN 80 MG/0.8 ML SYRINGE 70 MG SUB-Q (22:38)
[2022-04-22] MEDS: REMDESIVIR 200 MG/NS 250 ML 200 MG/250 ML BAG 250 MG IVPB (22:38)
--- NOTE | 2022-04-22 23:18 | ADMGEN ---
This patient, Arnaldo Rowan, was admitted to Medical Room 345-01. Patient/family oriented to hospital policies and general routines including ID bracelet, bed and alarms, visiting hours, pain management, procedures, bathroom and other care routines, personal items, smoking policy, room service/diet, and visiting hours. Information on how to activate the Rapid Response Team has been discussed. Patient/Family are encouraged to report perceived risks to care and to ask questions if they do not understand what they are told or what they should do.
[2022-04-22 23:39] LABS: Procalcitonin 0.1 ng/mL
[2022-04-23 00:24] VITALS: BMI 25.2
[2022-04-23] MEDS: guaiFENesin 12 HR 600 MG TABCR PO ×3 (00:59→21:47)
[2022-04-23 04:38] VITALS: BP 114/55; PULSE 77; RESP 18; TEMP 36.2; O2SAT 96
[2022-04-23 06:15] LABS: Basophils Percent Auto 0.7 % (0.2-1.2); Eosinophils Absolute Auto 0.2 K/mm3 (0-0.3); Eosinophils Percent Auto 3.5 % (0-4.4); Hemoglobin 10.2 g/dL (14.0-18.0); Immature Granulocyte Absolute 0.01 K/mm3 (0.00-0.031); Immature Granulocyte Percent A 0.2 % (0-0.5); Lymphocytes Absolute Auto 0.79 K/mm3 (0.9-3.2); Lymphocytes Percent Auto 13.1 % (18.3-44.2); Mean Corpuscular HGB Conc 31.9 g/dl (32-36); Mean Corpuscular Hemoglobin 30.4 pg (26-34); Mean Corpuscular Volume 95.5 fl (80-100); Mean Platelet Volume 10.5 fl (7.4-10.4); Monocytes Absolute Auto 0.5 K/mm3 (0.1-0.6); Monocytes Percent Auto 8.5 % (2.6-8.5); Neutrophils Absolute Auto 4.5 K/mm3 (1.3-6.7); Platelet Count Result 246 k/mm3 (150-375); Red Blood Count 3.35 M/mm3 (4.6-6.20); Red Cell Distribution Width 14.6 % (11.5-14.5)
[2022-04-23 06:27] LABS: Alanine Aminotransferase 14 U/L (6-50); Albumin Level 3.5 g/dL (3.5-5.1); Alkaline Phosphatase 53 U/L (38-126); Anion Gap 6 mmol/L (8-16); Aspartate Amino Transferase 22 U/L (17-59); Bilirubin,Total 0.5 mg/dL (0.2-1.3); Blood Urea Nitrogen 22 mg/dL (9-20); Calcium 8.5 mg/dL (8.4-10.2); Carbon Dioxide 20 mmol/L (22-30); Chloride 113 mmol/L (98-107); Estimated CRCL calculation 45 ml/min; Estimated Glomerular Filt Rate > 60; Glucose 84 mg/dL (65-110); Potassium 3.4 mmol/L (3.4-5.0); Sodium 139 mmol/L (137-145)
[2022-04-23 06:39] LABS: INR 1.2; Prothrombin Time 14.6 Seconds (11.1-14.7)
--- NOTE | 2022-04-23 07:34 | PM.IMPN ---
Progress Note: A&P Assessment and Plan (1) Urinary tract infection: Code(s): N39.0 - Urinary tract infection, site not specified Status: Acute Assessment and Plan: Reviewed UA follow urine culture Will give IV Rocephin Follow-up blood culture (2) COVID: Code(s): U07.1 - COVID-19 Status: Acute Assessment and Plan: Will give remdesivir for 3 days Patient is not hypoxic no plan for dexamethasone Rule out aspiration pneumonia will get swallow evaluation Unlikely patient has bacterial pneumonia continue Rocephin for now follow culture results (3) Pulmonary embolism: Code(s): I26.99 - Other pulmonary embolism without acute cor pulmonale Status: Acute Assessment and Plan: Therapeutic Lovenox Review CT scan of the chest Consider Eliquis in a.m. (4) ROBLES (acute kidney injury): Code(s): N17.9 - Acute kidney failure, unspecified Status: Acute Assessment and Plan: Most likely multifactorial related to dehydration COVID-19 and UTI patient has history of urine incontinence if no improvement recommend ultrasound of the abdomen in a.m. Check CK Patient was given IV hydration in the ER c/w D5 half-normal saline IV patient is dehydrated (5) Dehydration: Code(s): E86.0 - Dehydration Status: Acute Assessment and Plan: Was given IV fluid in the ER patient has lower extremity edema monitor closely continue IV fluids see above (6) Weakness: Code(s): R53.1 - Weakness Status: Acute Assessment and Plan: Secondary to above PT OT eval (7) Dementia: Code(s): F03.90 - Unspecified dementia, unspecified severity, without behavioral disturbance, psychotic disturbance, mood disturbance, and anxiety Status: Acute Assessment and Plan: Resume home medication (8) Urge urinary incontinence: Code(s): N39.41 - Urge incontinence Status: Acute (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: Code(s): E11.42 - Type 2 diabetes mellitus with diabetic polyneuropathy Status: Acute Assessment and Plan: Monitor closely for urinary retention (10) Old myocardial infarction: Code(s): I25.2 - Old myocardial infarction Status: Acute Assessment and Plan: Patient at home on aspirin and Plavix pending home medication reconciliation (11) Bilateral carotid artery stenosis: Code(s): I65.23 - Occlusion and stenosis of bilateral carotid arteries Status: Acute Assessment and Plan: Patient at home on aspirin and Plavix pending home medication reconciliation Subjective Date/time seen: 04/23/22 07:34 Interval history: I saw examined patient today. Patient is lethargic, patient feels thirsty. denies chest pain, shortness of breath Exam Narrative: GENERAL: Intermittent confusion HEAD: Normocephalic, atraumatic.dry mucous membrane NECK: Supple. No adenopathy, no masses. RESPIRATORY: Scattered crackles g. CARDIOVASCULAR: Regular rate and rhythm without murmurs, rubs, or gallops. Peripheral pulses 2+ and equal bilaterally. ABDOMINAL: Soft, nontender, nondistended, no hepatosplenomegaly. Normoactive BS. MUSCULOSKELETAL: Generalized weakness. SKIN: Warm, dry, normal color. No rashes. NEURO: Intermittent confusion preexistent weakness PSYCHIATRIC: Appropriate mood and affect. Normal interaction. Objective Data Vital Signs Vital Signs: Vital Signs - 24 hr 04/22/22 16:56 04/22/22 17:34 04/22/22 16:50 Temperature 99.0 F Pulse Rate 82 74 79 Respiratory Rate 23 H 24 H Blood Pressure 111/57 L Pulse Oximetry 100 98 Oxygen Delivery Room Air 04/22/22 17:00 04/22/22 17:01 04/22/22 17:15 Temperature Pulse Rate 65 77 Respiratory Rate 21 H 25 H Blood Pressure 111/57 L Pulse Oximetry 97 96 97 Oxygen Delivery 04/22/22 17:16 04/22/22 17:30 04/22/22 17:48 Temperature Pulse Rate 76 75 Respiratory Rate 21 H 20 Blood
[2022-04-23 09:10] LABS: Glucose Point of Care 94 mg/dl (65-105)
[2022-04-23] MEDS: PANTOPRAZOLE 40 MG TABLET PO (09:50)
[2022-04-23] MEDS: OMEGA 3 POLYUNSAT FATTY ACIDS 1 GM CAP PO (09:50)
[2022-04-23] MEDS: oxyBUTYnin CHLORIDE XL 5 MG TAB.ER.24 15 MG PO (09:50)
[2022-04-23] MEDS: FERROUS SULFATE 324 MG TABLET PO ×2 (09:50→17:25)
[2022-04-23] MEDS: FAMOTIDINE 20 MG TABLET PO ×2 (09:50→17:25)
[2022-04-23] MEDS: lisinopriL 10 MG TABLET BY MOUTH (09:50)
[2022-04-23] MEDS: ENOXAPARIN 80 MG/0.8 ML SYRINGE 70 MG SUB-Q ×2 (09:51→21:47)
[2022-04-23] MEDS: amLODIPine BESYLATE 5 MG TABLET BY MOUTH (09:51)
[2022-04-23] MEDS: cefTRIAXone 2 GM in SODIUM CHLORIDE 0.9% IV 100 ML 200 ML IVPB (09:51)
[2022-04-23] MEDS: FENOFIBRATE 160 MG TABLET PO (09:51)
[2022-04-23] MEDS: MEMANTINE 5 MG TABLET PO (09:51)
--- NOTE | 2022-04-23 09:59 | PCSTNOTE ---
Please refer to the Bedside Swallow Evaluation in the EMR. Please note, silent aspiration cannot be ruled out at bedside.
[2022-04-23] MEDS: DEXTROSE 5%/0.45% SOD CHL 1,000 ML 125 ML IV CONT ×2 (12:23→21:47)
[2022-04-23 12:26] LABS: Glucose Point of Care 82 mg/dl (65-105)
[2022-04-23 14:00] VITALS: BP 108/55; PULSE 70; RESP 18; TEMP 36.6; O2SAT 99
[2022-04-23 16:47] LABS: Glucose Point of Care 112 mg/dl (65-105)
[2022-04-23 20:25] VITALS: BP 150/67; PULSE 65; RESP 20; TEMP 36.2; O2SAT 99
[2022-04-23] MEDS: TAMSULOSIN HCL 0.4 MG CAPSULE PO (21:46)
[2022-04-23] MEDS: MIRTAZAPINE 15 MG TABLET PO (21:46)
[2022-04-23] MEDS: REMDESIVIR 100 MG/NS 250 ML 100 MG/250 ML BAG 250 MG IVPB (21:46)
[2022-04-24 05:44] LABS: INR 1.2
[2022-04-24 05:54] VITALS: BP 141/83; PULSE 70; RESP 16; TEMP 36.4; O2SAT 97
[2022-04-24 05:59] LABS: Alanine Aminotransferase 13 U/L (6-50); Albumin Level 3.1 g/dL (3.5-5.1); Alkaline Phosphatase 51 U/L (38-126); Anion Gap 8 mmol/L (8-16); Aspartate Amino Transferase 20 U/L (17-59); Bilirubin,Total 0.4 mg/dL (0.2-1.3); Blood Urea Nitrogen 19 mg/dL (9-20); Calcium 8.3 mg/dL (8.4-10.2); Carbon Dioxide 16 mmol/L (22-30); Chloride 115 mmol/L (98-107); Estimated CRCL calculation 42 ml/min; Estimated Glomerular Filt Rate > 60; Glucose 90 mg/dL (65-110); Potassium 3.7 mmol/L (3.4-5.0); Sodium 139 mmol/L (137-145)
[2022-04-24] MEDS: DEXTROSE 5%/0.45% SOD CHL 1,000 ML 125 ML IV CONT ×2 (08:21→20:35)
[2022-04-24] MEDS: cefTRIAXone 2 GM in SODIUM CHLORIDE 0.9% IV 100 ML 200 ML IVPB (08:21)
[2022-04-24] MEDS: OMEGA 3 POLYUNSAT FATTY ACIDS 1 GM CAP PO (08:22)
[2022-04-24] MEDS: lisinopriL 10 MG TABLET BY MOUTH (08:22)
[2022-04-24] MEDS: FENOFIBRATE 160 MG TABLET PO (08:22)
[2022-04-24] MEDS: FERROUS SULFATE 324 MG TABLET PO ×2 (08:22→17:21)
[2022-04-24] MEDS: oxyBUTYnin CHLORIDE XL 5 MG TAB.ER.24 15 MG PO (08:22)
[2022-04-24] MEDS: guaiFENesin 12 HR 600 MG TABCR PO ×2 (08:22→20:34)
[2022-04-24] MEDS: FAMOTIDINE 20 MG TABLET PO ×2 (08:22→17:21)
[2022-04-24] MEDS: MEMANTINE 5 MG TABLET PO (08:22)
[2022-04-24] MEDS: PANTOPRAZOLE 40 MG TABLET PO (08:22)
[2022-04-24] MEDS: amLODIPine BESYLATE 5 MG TABLET BY MOUTH (08:22)
[2022-04-24 08:27] LABS: Basophils Percent Auto 0.6 % (0.2-1.2); Eosinophils Absolute Auto 0.3 K/mm3 (0-0.3); Eosinophils Percent Auto 4.6 % (0-4.4); Hematocrit 33.8 % (42.0-52.0); Hemoglobin 10.6 g/dL (14.0-18.0); Immature Granulocyte Absolute 0.01 K/mm3 (0.00-0.031); Immature Granulocyte Percent A 0.2 % (0-0.5); Lymphocytes Absolute Auto 0.87 K/mm3 (0.9-3.2); Lymphocytes Percent Auto 16.1 % (18.3-44.2); Mean Corpuscular HGB Conc 31.4 g/dl (32-36); Mean Corpuscular Hemoglobin 30.6 pg (26-34); Mean Corpuscular Volume 97.7 fl (80-100); Mean Platelet Volume 10.1 fl (7.4-10.4); Monocytes Absolute Auto 0.4 K/mm3 (0.1-0.6); Monocytes Percent Auto 7.4 % (2.6-8.5); Neutrophils Absolute Auto 3.8 K/mm3 (1.3-6.7); Neutrophils Percent Auto 71.1 % (45.5-73.1); Platelet Count Result 238 k/mm3 (150-375); Red Blood Count 3.46 M/mm3 (4.6-6.20); Red Cell Distribution Width 14.7 % (11.5-14.5); White Blood Count 5.4 K/mm3 (4.5-10.0)
--- NOTE | 2022-04-24 08:29 | PM.IMPN ---
Progress Note: A&P Assessment and Plan (1) Urinary tract infection: Code(s): N39.0 - Urinary tract infection, site not specified Status: Acute Assessment and Plan: Reviewed UA follow urine culture Will give IV Rocephin Follow-up blood culture (2) COVID: Code(s): U07.1 - COVID-19 Status: Acute Assessment and Plan: give remdesivir for 3 days Patient is not hypoxic no plan for dexamethasone Rule out aspiration pneumonia will get swallow evaluation Unlikely patient has bacterial pneumonia continue Rocephin for now follow culture results (3) Pulmonary embolism: Code(s): I26.99 - Other pulmonary embolism without acute cor pulmonale Status: Acute Assessment and Plan: Therapeutic Lovenox Review CT scan of the chest Consider Eliquis in a.m. (4) ROBLES (acute kidney injury): Code(s): N17.9 - Acute kidney failure, unspecified Status: Acute Assessment and Plan: Most likely multifactorial related to dehydration COVID-19 and UTI patient has history of urine incontinence if no improvement recommend ultrasound of the abdomen in a.m. Check CK Patient was given IV hydration in the ER s/w D5 half-normal saline IV 3/2. patient is dehydrated dehydration is improving, continue IVfluid today mental status is improving (5) Dehydration: Code(s): E86.0 - Dehydration Status: Acute Assessment and Plan: Was given IV fluid in the ER patient has lower extremity edema monitor closely continue IV fluids see above (6) Weakness: Code(s): R53.1 - Weakness Status: Acute Assessment and Plan: Secondary to above PT OT eval (7) Dementia: Code(s): F03.90 - Unspecified dementia, unspecified severity, without behavioral disturbance, psychotic disturbance, mood disturbance, and anxiety Status: Acute Assessment and Plan: Resume home medication (8) Urge urinary incontinence: Code(s): N39.41 - Urge incontinence Status: Acute (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: Code(s): E11.42 - Type 2 diabetes mellitus with diabetic polyneuropathy Status: Acute Assessment and Plan: Monitor closely for urinary retention (10) Old myocardial infarction: Code(s): I25.2 - Old myocardial infarction Status: Acute Assessment and Plan: Patient at home on aspirin and Plavix pending home medication reconciliation (11) Bilateral carotid artery stenosis: Code(s): I65.23 - Occlusion and stenosis of bilateral carotid arteries Status: Acute Assessment and Plan: Patient at home on aspirin and Plavix pending home medication reconciliation Subjective Date/time seen: 04/24/22 08:29 Interval history: I saw examined patient today. Patient is lethargic, mental status is improving, patient states he is too weak to move out of bed. denies chest pain, shortness of breath. Exam Narrative: GENERAL: Intermittent confusion HEAD: Normocephalic, atraumatic.dry mucous membrane, improving NECK: Supple. No adenopathy, no masses. RESPIRATORY: Scattered crackles g. CARDIOVASCULAR: Regular rate and rhythm without murmurs, rubs, or gallops. Peripheral pulses 2+ and equal bilaterally. ABDOMINAL: Soft, nontender, nondistended, no hepatosplenomegaly. Normoactive BS. MUSCULOSKELETAL: Generalized weakness. SKIN: Warm, dry, normal color. No rashes. NEURO: Intermittent confusion preexistent weakness PSYCHIATRIC: Appropriate mood and affect. Normal interaction. Objective Data Vital Signs Vital Signs: Vital Signs - 24 hr 04/23/22 10:00 04/23/22 14:00 04/23/22 20:25 Temperature 97.9 F 97.2 F L Pulse Rate 70 65 Respiratory Rate 18 20 Blood Pressure 108/55 L 150/67 H Pulse Oximetry 99 99 Oxygen Delivery Room Air 04/23/22 20:00 04/24/22 05:54 Temperature 97.6 F Pulse Rate 70 Respiratory Rate 16 Blood Pressure 141/83 H Pulse Oximetry 97 Oxygen
[2022-04-24] MEDS: ENOXAPARIN 80 MG/0.8 ML SYRINGE 70 MG SUB-Q ×2 (08:34→20:35)
[2022-04-24 08:38] LABS: Glucose Point of Care 94 mg/dl (65-105)
[2022-04-24 12:17] LABS: Glucose Point of Care 121 mg/dl (65-105)
[2022-04-24 14:00] VITALS: BP 128/80; PULSE 87; RESP 18; TEMP 37; O2SAT 97
[2022-04-24 16:50] LABS: Glucose Point of Care 123 mg/dl (65-105)
[2022-04-24] MEDS: TAMSULOSIN HCL 0.4 MG CAPSULE PO (20:34)
[2022-04-24] MEDS: MIRTAZAPINE 15 MG TABLET PO (20:34)
[2022-04-24] MEDS: REMDESIVIR 100 MG/NS 250 ML 100 MG/250 ML BAG 250 MG IVPB (20:35)
[2022-04-24 21:56] VITALS: BP 133/85; PULSE 87; RESP 18; TEMP 36.6; O2SAT 95
[2022-04-24 22:01] LABS: Glucose Point of Care 113 mg/dl (65-105)
[2022-04-25 04:49] VITALS: BP 122/76; PULSE 75; RESP 16; TEMP 36.1; O2SAT 97
[2022-04-25 05:52] LABS: Basophils Percent Auto 0.8 % (0.2-1.2); Eosinophils Absolute Auto 0.2 K/mm3 (0-0.3); Eosinophils Percent Auto 2.8 % (0-4.4); Hematocrit 34.5 % (42.0-52.0); Hemoglobin 10.7 g/dL (14.0-18.0); Immature Granulocyte Absolute 0.02 K/mm3 (0.00-0.031); Immature Granulocyte Percent A 0.4 % (0-0.5); Lymphocytes Absolute Auto 0.94 K/mm3 (0.9-3.2); Lymphocytes Percent Auto 17.6 % (18.3-44.2); Mean Corpuscular Hemoglobin 30.5 pg (26-34); Mean Corpuscular Volume 98.3 fl (80-100); Mean Platelet Volume 10.5 fl (7.4-10.4); Monocytes Absolute Auto 0.4 K/mm3 (0.1-0.6); Monocytes Percent Auto 6.9 % (2.6-8.5); Neutrophils Absolute Auto 3.8 K/mm3 (1.3-6.7); Neutrophils Percent Auto 71.5 % (45.5-73.1); Platelet Count Result 262 k/mm3 (150-375); Red Blood Count 3.51 M/mm3 (4.6-6.20); Red Cell Distribution Width 14.6 % (11.5-14.5); White Blood Count 5.3 K/mm3 (4.5-10.0)
[2022-04-25 06:07] LABS: INR 1.2; Prothrombin Time 14.6 Seconds (11.1-14.7)
[2022-04-25 06:10] LABS: Alanine Aminotransferase 15 U/L (6-50); Albumin Level 3.5 g/dL (3.5-5.1); Alkaline Phosphatase 56 U/L (38-126); Anion Gap 6 mmol/L (8-16); Aspartate Amino Transferase 23 U/L (17-59); Bilirubin,Total 0.4 mg/dL (0.2-1.3); Blood Urea Nitrogen 15 mg/dL (9-20); Calcium 8.4 mg/dL (8.4-10.2); Carbon Dioxide 20 mmol/L (22-30); Chloride 112 mmol/L (98-107); Estimated CRCL calculation 42 ml/min; Estimated Glomerular Filt Rate > 60; Glucose 94 mg/dL (65-110); Potassium 3.7 mmol/L (3.4-5.0); Sodium 138 mmol/L (137-145)
[2022-04-25] MEDS: DEXTROSE 5%/0.45% SOD CHL 1,000 ML 125 ML IV CONT (08:32)
[2022-04-25] MEDS: cefTRIAXone 2 GM in SODIUM CHLORIDE 0.9% IV 100 ML 200 ML IVPB (08:33)
[2022-04-25] MEDS: ENOXAPARIN 80 MG/0.8 ML SYRINGE 70 MG SUB-Q ×2 (08:35→20:11)
[2022-04-25] MEDS: OMEGA 3 POLYUNSAT FATTY ACIDS 1 GM CAP PO (08:36)
[2022-04-25] MEDS: FERROUS SULFATE 324 MG TABLET PO ×2 (08:36→16:57)
[2022-04-25] MEDS: lisinopriL 10 MG TABLET BY MOUTH (08:36)
[2022-04-25] MEDS: FENOFIBRATE 160 MG TABLET PO (08:36)
[2022-04-25] MEDS: FAMOTIDINE 20 MG TABLET PO ×2 (08:36→16:56)
[2022-04-25] MEDS: amLODIPine BESYLATE 5 MG TABLET BY MOUTH (08:36)
[2022-04-25] MEDS: guaiFENesin 12 HR 600 MG TABCR PO ×2 (08:36→20:10)
[2022-04-25] MEDS: MEMANTINE 5 MG TABLET PO (08:36)
[2022-04-25] MEDS: PANTOPRAZOLE 40 MG TABLET PO (08:36)
[2022-04-25] MEDS: oxyBUTYnin CHLORIDE XL 5 MG TAB.ER.24 15 MG PO (08:36)
--- NOTE | 2022-04-25 09:29 | PM.IMPN ---
Progress Note: A&P Assessment and Plan (1) Urinary tract infection: Code(s): N39.0 - Urinary tract infection, site not specified Status: Acute Assessment and Plan: Reviewed UA follow urine culture Will give IV Rocephin Follow-up blood culture (2) COVID: Code(s): U07.1 - COVID-19 Status: Acute Assessment and Plan: give remdesivir for 3 days Patient is not hypoxic no plan for dexamethasone Rule out aspiration pneumonia, no dysphagia by swallow evaluation Unlikely patient has bacterial pneumonia continue Rocephin for now follow culture results (3) Pulmonary embolism: Code(s): I26.99 - Other pulmonary embolism without acute cor pulmonale Status: Acute Assessment and Plan: Therapeutic Lovenox Review CT scan of the chest Consider Eliquis in a.m. (4) ROBLES (acute kidney injury): Code(s): N17.9 - Acute kidney failure, unspecified Status: Acute Assessment and Plan: Most likely multifactorial related to dehydration COVID-19 and UTI patient has history of urine incontinence if no improvement recommend ultrasound of the abdomen in a.m. Check CK Patient was given IV hydration in the ER s/w D5 half-normal saline IV 3/2. patient is dehydrated dehydration is improving, continue IV fluid today mental status is improving (5) Dehydration: Code(s): E86.0 - Dehydration Status: Acute Assessment and Plan: Was given IV fluid in the ER patient has lower extremity edema monitor closely continue IV fluids see above (6) Weakness: Code(s): R53.1 - Weakness Status: Acute Assessment and Plan: Secondary to above PT OT eval (7) Dementia: Code(s): F03.90 - Unspecified dementia, unspecified severity, without behavioral disturbance, psychotic disturbance, mood disturbance, and anxiety Status: Acute Assessment and Plan: Resume home medication (8) Urge urinary incontinence: Code(s): N39.41 - Urge incontinence Status: Acute (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: Code(s): E11.42 - Type 2 diabetes mellitus with diabetic polyneuropathy Status: Acute Assessment and Plan: Monitor closely for urinary retention (10) Old myocardial infarction: Code(s): I25.2 - Old myocardial infarction Status: Acute Assessment and Plan: Patient at home on aspirin and Plavix pending home medication reconciliation (11) Bilateral carotid artery stenosis: Code(s): I65.23 - Occlusion and stenosis of bilateral carotid arteries Status: Acute Assessment and Plan: Patient at home on aspirin and Plavix pending home medication reconciliation Subjective Date/time seen: 04/25/22 09:29 Interval history: I saw examined patient today. patient has no complaints, mental status is improving, denies chest pain, shortness of breath. Exam Narrative: GENERAL: pleasant person, no acute distress HEAD: Normocephalic, atraumatic.dry mucous membrane, improving NECK: Supple. No adenopathy, no masses. RESPIRATORY: Scattered crackles g. CARDIOVASCULAR: Regular rate and rhythm without murmurs, rubs, or gallops. Peripheral pulses 2+ and equal bilaterally. ABDOMINAL: Soft, nontender, nondistended, no hepatosplenomegaly. Normoactive BS. MUSCULOSKELETAL: Generalized weakness. SKIN: Warm, dry, normal color. No rashes. NEURO: alert, oriented, preexistent weakness but improving PSYCHIATRIC: Appropriate mood and affect. Normal interaction. Objective Data Vital Signs Vital Signs: Vital Signs - 24 hr 04/24/22 14:00 04/24/22 20:00 04/24/22 21:56 Temperature 98.6 F 97.9 F Pulse Rate 87 87 Respiratory Rate 18 18 Blood Pressure 128/80 133/85 Pulse Oximetry 97 95 Oxygen Delivery Room Air 04/25/22 04:49 Temperature 97 F L Pulse Rate 75 Respiratory Rate 16 Blood Pressure 122/76 Pulse Oximetry 97 Oxygen Delivery Intake/Output Intake/Output
[2022-04-25 14:00] VITALS: BP 124/81; PULSE 77; RESP 20; TEMP 36.6; O2SAT 94
[2022-04-25] MEDS: MIRTAZAPINE 15 MG TABLET PO (20:11)
[2022-04-25] MEDS: TAMSULOSIN HCL 0.4 MG CAPSULE PO (20:11)
[2022-04-25] MEDS: REMDESIVIR 100 MG/NS 250 ML 100 MG/250 ML BAG 250 MG IVPB (20:15)
[2022-04-25 22:00] VITALS: BP 145/60; PULSE 73; RESP 18; TEMP 36.3; O2SAT 98
[2022-04-26 05:27] LABS: INR 1.2
[2022-04-26 05:33] LABS: Alanine Aminotransferase 15 U/L (6-50); Estimated CRCL calculation 50 ml/min; Estimated Glomerular Filt Rate > 60
[2022-04-26 06:00] VITALS: BP 160/72; PULSE 41; RESP 24; TEMP 36.1; O2SAT 100
[2022-04-26 09:00] VITALS: BP 132/51; PULSE 81
[2022-04-26] MEDS: PANTOPRAZOLE 40 MG TABLET PO (09:04)
[2022-04-26] MEDS: amLODIPine BESYLATE 5 MG TABLET BY MOUTH (09:04)
[2022-04-26] MEDS: FAMOTIDINE 20 MG TABLET PO (09:04)
[2022-04-26] MEDS: OMEGA 3 POLYUNSAT FATTY ACIDS 1 GM CAP PO (09:04)
[2022-04-26] MEDS: FERROUS SULFATE 324 MG TABLET PO (09:04)
[2022-04-26] MEDS: lisinopriL 10 MG TABLET BY MOUTH (09:04)
[2022-04-26] MEDS: FENOFIBRATE 160 MG TABLET PO (09:04)
[2022-04-26] MEDS: guaiFENesin 12 HR 600 MG TABCR PO (09:04)
[2022-04-26] MEDS: oxyBUTYnin CHLORIDE XL 5 MG TAB.ER.24 15 MG PO (09:04)
[2022-04-26] MEDS: MEMANTINE 5 MG TABLET PO (09:04)
[2022-04-26] MEDS: ENOXAPARIN 80 MG/0.8 ML SYRINGE 70 MG SUB-Q (09:04)
--- NOTE | 2022-04-26 09:19 | PM.DS ---
DS: Admitting Diagnosis Discharge Date TODAY Admitting Diagnosis UTI and PE DS: Discharge Diagnosis Discharge Diagnosis (1) Urinary tract infection: Code(s): N39.0 - Urinary tract infection, site not specified Status: Acute (2) Pulmonary embolism: Code(s): I26.99 - Other pulmonary embolism without acute cor pulmonale Status: Acute (3) COVID: Code(s): U07.1 - COVID-19 Status: Acute (4) ROBLES (acute kidney injury): Code(s): N17.9 - Acute kidney failure, unspecified Status: Acute (5) Dehydration: Code(s): E86.0 - Dehydration Status: Acute (6) Weakness: Code(s): R53.1 - Weakness Status: Acute (7) Falls: Qualifiers: Encounter type: subsequent encounter Qualified Code(s): W19.XXXD - Unspecified fall, subsequent encounter Code(s): W19.XXXA - Unspecified fall, initial encounter Status: Acute (8) Dementia: Code(s): F03.90 - Unspecified dementia, unspecified severity, without behavioral disturbance, psychotic disturbance, mood disturbance, and anxiety Status: Acute (9) Urge urinary incontinence: Code(s): N39.41 - Urge incontinence Status: Acute (10) Type 2 diabetes mellitus with diabetic polyneuropathy: Code(s): E11.42 - Type 2 diabetes mellitus with diabetic polyneuropathy Status: Acute (11) Old myocardial infarction: Code(s): I25.2 - Old myocardial infarction Status: Acute (12) Bilateral carotid artery stenosis: Code(s): I65.23 - Occlusion and stenosis of bilateral carotid arteries Status: Acute DS: Summary Hospital Course Reason for hospitalization: UTI, PE, dehydration Hospital Course: 86 years old male with past medical history of CVA on aspirin and Plavix coronary artery disease status post myocardial infarction dementia hypertension presented from assisted living with worsening mental status and generalized weakness patient according to the assisted living staff who normally is able to transfer but now it is becoming very weak and he is more lethargic patient was recently diagnosed with COVID-19 positive he is complaining of cough and shortness of breath patient was not hypoxic on admission in the ER CT scan of the chest was done showed pulmonary embolism atelectasis and probable pneumonia patient is afebrile UA also was done was abnormal patient was admitted to the hospital for further evaluation and treatment of COVID-19 pneumonia UTI altered mental status generalized weakness. During hospitalization, patient received ceftriaxone IV for UTI, Lovenox therapeutic dose for PE there and patient also received for resuscitation. now patient acute renal failure has resolved. Patient denies dysuria, chest pain, shortness of breath. Change Augmentin 500 mg t.i.d. p.o. for 7 more days, continue Eliquis p.o. for PE. Patient has general weakness, he will be discharged from shelter for rehab. Time Spent with Patient Time attestation: Total time spent providing and/or coordinating discharge services: Exam Narrative: GENERAL: ? pleasant person, no acute distress HEAD: Normocephalic, atraumatic.dry mucous membrane, improving NECK: Supple. No adenopathy, no masses. RESPIRATORY:? clear b/l CARDIOVASCULAR: Regular rate and rhythm without murmurs, rubs, or gallops. Peripheral pulses 2+ and equal bilaterally. ABDOMINAL: Soft, nontender, nondistended, no hepatosplenomegaly. Normoactive BS. MUSCULOSKELETAL:? Generalized weakness. SKIN: Warm, dry, normal color. No rashes. NEURO: ? alert, oriented, preexistent weakness but improving PSYCHIATRIC: Appropriate mood and affect. Normal interaction. DS: Data Data Completed and Pending Labs on day of discharge: Labs from last 24 hours 04/26/22 04/26/22 05:10 05:10 PT 15.0 H INR 1.2 Creatinine 0.90 Estim Creat Clear Calc 50 Estimated GFR > 60 ALT 15 Preliminary micro results at discharge
--- NOTE | 2022-04-26 12:05 | PC.NURSE ---
Called to give report at [facility]. Silver Buffer hung up on conventional mortgage underwriter. Senior It Recruiter called back again and steam shovel engineer answered and line was silent. Senior It Recruiter will call back in 15 mins.
--- NOTE | 2022-04-26 15:37 | PC.NURSE ---
Called to give report to [facility] on patient and no answer from nurse.
== END 2022-04-26 15:50 | DRG 177 ==
LOC: ANHED 17:27 → ANH3MED 22:50
PROVIDERS: Admitting Provider Internal Medicine; Emergency Provider Physician Assistant; PCP Family Medicine Adolescent Medicine; Visit Provider Hospitalist
DX: U07.1 COVID-19 (principal); I26.99 Other pulmonary embolism without acute cor pulmonale; J12.82 Pneumonia due to coronavirus disease 2019; G82.20 Paraplegia, unspecified; N39.0 Urinary tract infection, site not specified; N17.9 Acute kidney failure, unspecified; B96.20 Unspecified Escherichia coli [E. coli] as the cause of diseases classified elsewhere; D64.9 Anemia, unspecified; E86.0 Dehydration; E11.42 Type 2 diabetes mellitus with diabetic polyneuropathy; F41.9 Anxiety disorder, unspecified; F03.90 Unspecified dementia, unspecified severity, without behavioral disturbance, psychotic disturbance, mood disturbance, and anxiety; H35.30 Unspecified macular degeneration; I65.23 Occlusion and stenosis of bilateral carotid arteries; I25.2 Old myocardial infarction; I10 Essential (primary) hypertension; I25.10 Atherosclerotic heart disease of native coronary artery without angina pectoris; K21.9 Gastro-esophageal reflux disease without esophagitis; M19.90 Unspecified osteoarthritis, unspecified site; N39.41 Urge incontinence; Z98.41 Cataract extraction status, right eye; Z98.42 Cataract extraction status, left eye; Z90.49 Acquired absence of other specified parts of digestive tract; Z79.82 Long term (current) use of aspirin; Z79.02 Long term (current) use of antithrombotics/antiplatelets; Z86.73 Personal history of transient ischemic attack (TIA), and cerebral infarction without residual deficits; Z87.891 Personal history of nicotine dependence
CPT/HCPCS: 36415; 70450; 71045; 71275; 80053; 81001; 82565; 82948; 83605; 84145; 84460; 85025; 85610; 85730; 87040; 87077; 87086; 87186; 92610; 93005; 96361; 96365; 96366; 96367; 96372; 96375; 97110; 97161; 97165; 97530; 99285; A9270; G0378; J0248; J0696; J1650; J7030; Q9967

== ENCOUNTER 2022-05-06 08:41 | Inpatient (IN) | payer MEDICARE, SELFPAY ==
[2022-05-06] VITALS (48 sets, daily range): BP systolic 84–132; BP diastolic 45–88; PULSE 77–100; RESP 16–28; TEMP 36.4–37.1; O2SAT 89–100; BMI 20.6
--- NOTE | ~2022-05-06 | CT_ITS ---
Non-contrast CT scan of the Abdomen and Pelvis Clinical indication: Epigastric pain Technique: 2.5 mm axial scans were obtained through the abdomen and pelvis without intravenous or or al contrast. Dose reduction technique was used on this scan by utilizing automated exposure control a nd iterative reconstruction technique. The dose-length product (DLP) was 855.95 mGy-cm. COMPARISON: 02/16/2019 Findings: Images through the lung bases reveal bibasilar chronic interstitial disease, similar to pr ior exam. The liver, spleen, pancreas, kidneys, and adrenals appear normal. Cholecystectomy clips noted. There is no aortic aneurysm. There is extensive wall thickening of the rectum and sigmoid colon. No bowel obstruction evident. No abscess or free air evident. Images through the pelvis were performed. There is no evidence of ascites or lymphadenopathy. Urinary bladder unremarkable. Prostate gland is enlarged. Stable mild compression deformities of T12 and L1. Impression: Extensive wall thickening of the rectum and sigmoid colon. Given extent of findings, this likely repr esents infectious/inflammatory colitis. Underlying neoplasm cannot be excluded. Ischemic bowel felt t o be less likely, though also not excluded. Bibasilar chronic interstitial pulmonary disease, similar to prior exam. Reviewed, dictated and finalized at location M. Impression: Extensive wall thickening of the rectum and sigmoid colon. Given extent of find ings, this likely represents infectious/inflammatory colitis. Underlying neopla sm cannot be excluded. Ischemic bowel felt to be less likely, though also not e xcluded. Bibasilar chronic interstitial pulmonary disease, similar to prior exam.
--- NOTE | ~2022-05-06 | XR_ITS ---
Portable chest x-ray Comparison: 04/22/2022 Clinical History: Altered mental status, weakness Findings: Probable minimal bibasilar interstitial prominence noted. No consolidation or pleural effu fozia. Cardiomediastinal silhouette is stable. Bones and soft tissues are unremarkable. Impression: Minimal bibasilar interstitial prominence. Correlate for COPD or other mild bibasilar chronic interst itial disease. Reviewed, dictated and finalized at location . Impression: Minimal bibasilar interstitial prominence. Correlate for COPD or other mild bib asilar chronic interstitial disease.
[2022-05-06] MEDS: SODIUM CHLORIDE 0.9% IV 1,000 ML 999 ML IV CONT (09:16)
[2022-05-06 09:51] LABS: Appearance Urine Clear (Clear); Bacteria Urine None Seen /hpf; Bilirubin Urine Negative (Negative); Blood Urine Negative (Negative); Color Urine Dark Yellow (Yellow); Glucose Urine UA Negative (Negative); Ketones Urine Negative (Negative); Leukocyte Esterase Ur Trace LEU/UL (Negative); Nitrate Urine Negative (Negative); Non Pathogenic Casts 0-2; Protein Urine Negative (Negative); RBC Urine 0-2 /hpf (0-2); Specific Grav Ur 1.016 (1.001-1.035); Squamous Epithelial Cell Urine None seen /hpf (Few); Urobilinogen Urine 0.2 mg/dL (<2.0); WBC Urine 0-5 /hpf; pH Urine 5.5 (5.0-9.0)
[2022-05-06 09:53] LABS: Add Urine Microscopic? YES
[2022-05-06 09:57] LABS: Lactic Acid Reflex 1.4 mmol/L (0.7-2.0)
--- NOTE | 2022-05-06 10:28 | ED.AMS ---
HPI - Altered Mental Status General Chief Complaint: Altered Mental Status Stated Complaint: AMS, N/V/D Time Seen by Provider: 05/06/22 08:52 History of Present Illness HPI narrative: Patient is an 86-year-old male with history of dementia who presents ER with decreased mental status. Typically oriented x2 but today was oriented x1. Has had low blood pressure for EMS. Patient has no complaints of pain but cannot provide history. Related Data Home Medications Medication Instructions Recorded Confirmed aspirin 81 mg tablet,delayed 81 mg PO DAILY 02/15/19 04/22/22 release (Adult Low Dose Aspirin) omega-3 fatty acids 1,000 mg PO DAILY 05/25/21 04/22/22 miconazole nitrate 2 % topical 1 applic topical BID PRN tabitha area 04/22/22 04/23/22 cream (Aminta Antifungal) amlodipine 5 mg-benazepril 10 mg 1 cap PO DAILY 04/23/22 04/22/22 capsule (Lotrel) clopidogrel 75 mg tablet (Plavix) 75 mg PO DAILY 04/23/22 04/22/22 cyanocobalamin (vitamin B-12) See Rx Instructions .Route .COMPLEX 04/23/22 04/23/22 1,000 mcg/mL injection solution (Dodex) famotidine 20 mg tablet (Acid 20 mg PO BID 04/23/22 04/22/22 General Merchandise Manager (famotidine)) ferrous sulfate 325 mg (65 mg 324 mg PO BID 04/23/22 04/22/22 iron) tablet (FeroSul) lorazepam 0.5 mg tablet (Ativan) 0.5 mg PO BID PRN Anxiety 04/23/22 04/22/22 memantine 5 mg tablet (Namenda) 5 mg PO DAILY 04/23/22 04/22/22 mirtazapine 15 mg tablet (Remeron) 15 mg PO QHS 04/23/22 04/22/22 tamsulosin 0.4 mg capsule (Flomax) 0.4 mg PO QHS 04/23/22 04/22/22 Allergies Allergy/AdvReac Type Severity Reaction Status Date / Time aspirin AdvReac Mild Upset Verified 04/12/22 19:32 stomach PMFSH Past Medical History Medical History Anxiety Arthritis Cerebrovascular accident (~08/2011) With dysphagia and dysarthria, resolved. Chronic anemia COVID-19 CVA (cerebral vascular accident) No residual DDD (degenerative disc disease) Gastroesophageal reflux disease H/O blood clots History of non-ST elevation myocardial infarction (NSTEMI) 01/2021 Kidney stone Kidney stones Macular degeneration Seasonal allergies Ureteral stone Surgical History Surgical History History of bilateral cataract extraction History of laparoscopic cholecystectomy (~01/2013) History of lumbar surgery History of repair of right rotator cuff (~05/1999) History of right inguinal hernia repair Family History Family History Father Emphysema of lung Colon cancer Mother Heart disease Pacemaker Sibling Parkinson disease Social History Social History (Updated 05/06/22 @ 13:18 by Amy Valdes NP) Social History: suha arango He served in the as a young man. 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 He had previously worked as a [employer]. He smoked 2 to 3 packs of cigarettes per day for about 40 years and quit in 1988. He denies alcohol and illicit substance use. His daughter, Leonarda Isbell, is his healthcare power of divorce attorney and he wishes to be a full code. Smoking packs per day: 3 Smoking cigarettes per day: 60.0 Years smoked: 38 Smoking pack-years: 114.00 Smoking status: Former smoker Tobacco type: cigarettes Alcohol intake: never Substance use: never Substance use type: does not use Lack of Transportation: No Lack of Food: Never True Current Housing: I Have Housing Concerned About Future Housing: No Difficulty Paying Gas/Electric Bills: No Difficulty Paying for Meds: No Currently Unemployed: No Education: Trade/Vocational Certificate Difficulty w/ Childcare or Family Care: No Living arrangements: alone Occupation/Education: retired Gender identity (if verbalized by the patient): Male Spiritual care concerns: No Agree to blood products: Yes Exam
[2022-05-06 10:29] LABS: Hematocrit 36.9 % (42.0-52.0); Hemoglobin 11.5 g/dL (14.0-18.0); Mean Corpuscular HGB Conc 31.2 g/dl (32-36); Mean Corpuscular Hemoglobin 30.1 pg (26-34); Mean Corpuscular Volume 96.6 fl (80-100); Mean Platelet Volume 10.2 fl (7.4-10.4); Platelet Count Result 416 k/mm3 (150-375); Red Blood Count 3.82 M/mm3 (4.6-6.20); Red Cell Distribution Width 14.7 % (11.5-14.5); White Blood Count 28.6 K/mm3 (4.5-10.0)
[2022-05-06 10:34] LABS: Lactic Acid Reflex 3.5 mmol/L (0.7-2.0)
[2022-05-06 10:41] LABS: Total Cells Counted 100
[2022-05-06 10:42] LABS: Band Neutrophils Percent 11 % (0-6); Lymphocytes Absolute Manual 0.85 K/mm3 (1.1-4.5); Lymphocytes Percent Manual 3 % (18-44); Monocytes Absolute Manual 1.14 K/mm3 (0.1-0.90); Monocytes Percent Manual 4 % (3-9); Neutrophils Absolute Manual 26.59 K/mm3 (1.3-6.7); Neutrophils Percent Manual 82 % (46-73); Platelet Estimate Increased (Adequate); Schistocytes None Seen (NORMAL)
[2022-05-06 10:43] LABS: INR 1.3; Prothrombin Time 16.1 Seconds (11.1-14.7)
[2022-05-06 10:44] LABS: Partial Thromboplastin Time 42.2 SECONDS (22.3-36.8)
[2022-05-06] MEDS: SODIUM CHLORIDE 0.9% IV 2,400 ML/1,000 ML BAG 999 ML IV CONT ×2 (10:58→12:23)
[2022-05-06] MEDS: MORPHINE SULFATE (*CRX) 2 MG/ML INJ IV PUSH (11:01)
[2022-05-06 11:32] LABS: Alanine Aminotransferase 19 U/L (6-50); Albumin Level 3.5 g/dL (3.5-5.1); Alkaline Phosphatase 69 U/L (38-126); Anion Gap 11 mmol/L (8-16); Aspartate Amino Transferase 25 U/L (17-59); Bilirubin,Total 0.8 mg/dL (0.2-1.3); Blood Urea Nitrogen 46 mg/dL (9-20); Calcium 8.5 mg/dL (8.4-10.2); Carbon Dioxide 19 mmol/L (22-30); Chloride 114 mmol/L (98-107); Estimated CRCL calculation 16 ml/min; Estimated Glomerular Filt Rate 17; Glucose 140 mg/dL (65-110); Lipase 11 U/L (23-300); Potassium 3.8 mmol/L (3.4-5.0); Sodium 144 mmol/L (137-145)
[2022-05-06] MEDS: PIPERACILLN/TAZ 3.375GM/NS50ML 3.375 GM/50 ML BAG IVPB ×2 (12:27→18:23)
--- NOTE | 2022-05-06 13:14 | PM.IMHP ---
H&P: HPI History of Present Illness Date/Time: 05/06/22 13:14 Chief Complaint: Altered mental status Narrative: This is an 86-year-old male patient who has a history of dementia. He came into the emergency room with decreased mental status. He has 2 with a until he continues to but today is only orientated x1. His blood pressure is low. His daughter also at the bedside and answering questions. Patient appears to be dehydrated. White count 28.6. H&H is 11.5 and 36.9. Creatinine 3.5 with a normal baseline. Lactic acid is 3.5 [address] was read asExtensive wall thickening of the rectum and sigmoid colon. Given extent of findings, this likely represents infectious/inflammatory colitis. Underlying neoplasm cannot be excluded. Ischemic bowel felt to be less likely, though also not excluded. Bibasilar chronic interstitial pulmonary disease, similar to prior exam. The patient was started on Zosyn. He was given IV fluids and morphine and Pepcid in the emergency room. The patient had hiccups when I saw him in the emergency room.. The patient is being admitted to inpatient status on the date of service of 05/06/2022. (The patient was recently discharged from here on 04/26/2022 due to UTI) Review of Systems Review of Systems: All systems reviewed & are unremarkable except as noted in HPI and below Constitutional: Constitutional: Reports as per HPI and Reports no additional constitutional complaints Eyes: Eyes: Reports as per HPI and Reports no additional eye complaints ENT: Reports system reviewed and no additional complaints, except as documented and Reports Normal hearing present Cardiovascular: Cardiovascular: Reports no additional cardiovascular complaints Respiratory: Respiratory: Reports no additional respiratory complaints and Reports no additional respiratory complaints Gastrointestinal: Gastrointestinal: Reports as per HPI and Reports no additional gastrointestinal complaints Musculoskeletal: Musculoskeletal: Reports no additional musculoskeletal complaints Integumentary/Breasts: Skin/Breast: Reports system reviewed and no additional complaints, except as docu and Reports as per HPI Neurologic: Reports system reviewed and no additional complaints, except as documented, Reports as per HPI and Reports Normal hearing present Psychiatric: Psychiatric: Reports no additional psychiatric complaints and Reports as per HPI Endocrine: Endocrine: Reports no additional endocrine complaints Hematologic/Lymphatic: Hematologic/Lymphatic: Reports no additional hematologic/lymphatic complaints Allergic/Immunologic: Allergic/Immunologic: Reports no additional allergic/immunologic complaints PMFSH Past Medical History Medical History (Updated 05/06/22 @ 16:10 by Amy Valdes NP) Anxiety Arthritis Cerebrovascular accident (~08/2011) With dysphagia and dysarthria, resolved. Chronic anemia COVID-19 CVA (cerebral vascular accident) No residual DDD (degenerative disc disease) Gastroesophageal reflux disease H/O blood clots History of non-ST elevation myocardial infarction (NSTEMI) 01/2021 Kidney stone Kidney stones Macular degeneration Seasonal allergies Ureteral stone Weakness Surgical History Surgical History (Updated 05/06/22 @ 16:10 by Amy Valdes NP) H/O inguinal hernia repair Right inguinal hernia repair History of bilateral cataract extraction History of laparoscopic cholecystectomy (~01/2013) History of lumbar surgery Spinal surgery x3 History of repair of right rotator cuff (~05/1999) History of right inguinal hernia repair S/P rotator cuff repair Right rotator cuff repair Family History Family History Father Emphysema of lung Colon cancer Mother Heart disease Pacemaker Sibling Parkinson disease Social History Social History (Updated 05/06/22 @ 17:45 by Amy Valdes NP) Social History: He resides
[2022-05-06 13:23] LABS: Reflex Lactic Acid Yes or No Add Lactic
[2022-05-06 14:18] LABS: Lactic Acid 2.6 mmol/L (0.7-2.0)
[2022-05-06] MEDS: LACTATED RINGERS 1,000 ML 125 ML IV CONT ×2 (14:43→22:32)
[2022-05-06] MEDS: FAMOTIDINE 20 MG/2 ML VIAL IV PUSH ×2 (14:43→20:31)
--- NOTE | 2022-05-06 15:57 | ADMGEN ---
This patient, Arnaldo Rowan, was admitted to IMU Room 203-01. Patient/family oriented to hospital policies and general routines including ID bracelet, bed and alarms, visiting hours, pain management, procedures, bathroom and other care routines, personal items, smoking policy, room service/diet, and visiting hours. Information on how to activate the Rapid Response Team has been discussed. Patient/Family are encouraged to report perceived risks to care and to ask questions if they do not understand what they are told or what they should do.
[2022-05-06 16:37] LABS: IFOB Positive Control Positive; Immunochemical Fecal Occult Bl Negative (N)
[2022-05-06] MEDS: MIRTAZAPINE 7.5 MG TABLET PO (20:31)
[2022-05-06] MEDS: APIXABAN 5 MG TABLET PO (20:31)
[2022-05-06] MEDS: TAMSULOSIN HCL 0.4 MG CAPSULE PO (20:32)
[2022-05-06 20:53] LABS: Toxigenic C. Diff POSITIVE (NEGATIVE)
[2022-05-06] MEDS: metroNIDAZOLE 500 MG/ISO 100ML 500 MG/100 ML BAG 100 MG IVPB (22:31)
[2022-05-06] MEDS: VANCOMYCIN ORAL 125 MG/2.5 ML SYRUP PO (23:19)
[2022-05-07] VITALS (16 sets, daily range): BP systolic 84–121; BP diastolic 28–67; PULSE 56–103; RESP 17–26; TEMP 36.3–37.1; O2SAT 93–97
[2022-05-07 05:01] LABS: Hematocrit 33.5 % (42.0-52.0); Hemoglobin 10.6 g/dL (14.0-18.0); Mean Corpuscular HGB Conc 31.6 g/dl (32-36); Mean Corpuscular Hemoglobin 29.9 pg (26-34); Mean Corpuscular Volume 94.4 fl (80-100); Mean Platelet Volume 10.7 fl (7.4-10.4); Platelet Count Result 395 k/mm3 (150-375); Red Blood Count 3.55 M/mm3 (4.6-6.20); Red Cell Distribution Width 14.8 % (11.5-14.5); White Blood Count 21.4 K/mm3 (4.5-10.0)
[2022-05-07 05:26] LABS: Alanine Aminotransferase 16 U/L (6-50); Albumin Level 2.7 g/dL (3.5-5.1); Alkaline Phosphatase 55 U/L (38-126); Anion Gap 9 mmol/L (8-16); Aspartate Amino Transferase 27 U/L (17-59); Bilirubin,Total 0.6 mg/dL (0.2-1.3); Blood Urea Nitrogen 57 mg/dL (9-20); Calcium 7.6 mg/dL (8.4-10.2); Carbon Dioxide 17 mmol/L (22-30); Chloride 114 mmol/L (98-107); Estimated CRCL calculation 13 ml/min; Estimated Glomerular Filt Rate 16; Glucose 124 mg/dL (65-110); Magnesium 1.8 mg/dL (1.6-2.3); Potassium 3.8 mmol/L (3.4-5.0); Sodium 140 mmol/L (137-145)
[2022-05-07] MEDS: VANCOMYCIN ORAL 125 MG/2.5 ML SYRUP PO ×3 (05:30→17:38)
[2022-05-07] MEDS: metroNIDAZOLE 500 MG/ISO 100ML 500 MG/100 ML BAG 100 MG IVPB ×2 (05:30→13:20)
[2022-05-07 05:45] LABS: Lactate Dehydrogenase 135 U/L (120-246)
[2022-05-07 05:53] LABS: Band Neutrophils Percent 22 % (0-6); Lymphocytes Absolute Manual 0.85 K/mm3 (1.1-4.5); Neutrophils Absolute Manual 20.54 K/mm3 (1.3-6.7); Neutrophils Percent Manual 74 % (46-73); Total Cells Counted 100
[2022-05-07 05:54] LABS: Burr Cells 1+ (NORMAL); Platelet Estimate Adequate (Adequate); Poikilocytosis 1+ (NORMAL); Schistocytes None Seen (NORMAL)
[2022-05-07] MEDS: LACTATED RINGERS 1,000 ML 125 ML IV CONT ×2 (06:08→09:05)
[2022-05-07] MEDS: SODIUM CHLORIDE 0.9% IV 1,000 ML 999 ML IV CONT (06:50)
[2022-05-07 06:52] LABS: Alveolar/Arterial O2 Gradient 61.4 mmHg; Fractional Inspired Oxygen 28 %; HCO3 ABG 13.7 mEq/l (22.0-26.0); Oxygen Content ABG 16.1 %vol (16.0-22.0); Oxygen Saturation ABG 98.5 % (95.0-100.0); Oxyhemoglobin 96.8 % THb (90.0-100.0); PO2 ABG 114.9 mmHg (80.0-100.0); Total Hemoglobin 11.7 g/dL (12.0-18.0); pH ABG 7.459 (7.350-7.450)
[2022-05-07 06:53] LABS: Modified Allen's Test Pass; PCO2 ABG 19.8 mmHg (35.0-45.0); Site Drawn RIGHT RADIAL
[2022-05-07 06:54] LABS: Device NASAL CANNULA
[2022-05-07 07:15] LABS: Lactic Acid Reflex 2.5 mmol/L (0.7-2.0)
[2022-05-07] MEDS: LORazepam INJ (*CRX) 2 MG/ML VIAL 0.5 MG IV PUSH ×2 (07:31→13:58)
[2022-05-07] MEDS: MORPHINE SULFATE (*CRX) 2 MG/ML INJ IV PUSH ×3 (09:00→17:46)
[2022-05-07] MEDS: FAMOTIDINE 20 MG/2 ML VIAL IV PUSH (09:02)
--- NOTE | 2022-05-07 09:07 | PC.NURSE ---
Pt Am medication held due to decreased BP and AMS at this time Dr Banuelos made aware and is fine with the hold
[2022-05-07 10:01] LABS: Reflex Lactic Acid Yes or No Add Lactic
[2022-05-07 10:41] LABS: Lactic Acid 2.8 mmol/L (0.7-2.0)
--- NOTE | 2022-05-07 13:49 | PCSTNOTE ---
Please refer to the Bedside Swallow Evaluation in the EMR. Please note, silent aspiration cannot be ruled out at bedside.
[2022-05-07] MEDS: SODIUM CHLORIDE 0.9% IV 500 ML 999 ML IV CONT (15:15)
[2022-05-07] MEDS: SODIUM CHLORIDE 0.9% IV 1,000 ML 100 ML IV CONT (15:16)
[2022-05-07] MEDS: SODIUM CHLORIDE 0.9% IV 1,000 ML 999 ML (16:25)
--- NOTE | 2022-05-07 16:50 | PM.DS ---
DS: Admitting Diagnosis Discharge Date 05/07/2022 Admitting Diagnosis Acute mental status change DS: Discharge Diagnosis Discharge Diagnosis (1) Colitis: Code(s): K52.9 - Noninfective gastroenteritis and colitis, unspecified Status: Acute (2) ROBLES (acute kidney injury): Code(s): N17.9 - Acute kidney failure, unspecified Status: Acute (3) Pulmonary embolism: Code(s): I26.99 - Other pulmonary embolism without acute cor pulmonale Status: Acute (4) Anxiety disorder, unspecified: Code(s): F41.9 - Anxiety disorder, unspecified Status: Acute (5) Dementia: Code(s): F03.90 - Unspecified dementia, unspecified severity, without behavioral disturbance, psychotic disturbance, mood disturbance, and anxiety Status: Acute (6) Type 2 diabetes mellitus with diabetic polyneuropathy: Code(s): E11.42 - Type 2 diabetes mellitus with diabetic polyneuropathy Status: Acute (7) Benign prostatic hyperplasia with lower urinary tract symptoms: Code(s): N40.1 - Benign prostatic hyperplasia with lower urinary tract symptoms Status: Acute DS: Summary Hospital Course Reason for hospitalization: Chief Complaint: Altered mental status Narrative: This is an 86-year-old male patient who has a history of dementia.? He came into the emergency room with decreased mental status.? He has 2 with a until he continues to but today is only orientated x1.? His blood pressure is low.? His daughter also at the bedside and answering questions.? Patient appears to be dehydrated.? White count 28.6.? H&H is 11.5 and 36.9.? Creatinine 3.5 with a normal baseline.? Lactic acid is 3.5 and 2.6.? Abdomen pelvis CT was read asExtensive wall thickening of the rectum and sigmoid colon. Given extent of findings, this likely represents infectious/inflammatory colitis. Underlying neoplasm cannot be excluded. Ischemic bowel felt to be less likely, though also not excluded. Bibasilar chronic interstitial pulmonary disease, similar to prior exam. The patient was started on Zosyn.? He was given IV fluids and morphine and Pepcid in the emergency room.? The patient had hiccups when I saw him in the emergency room..? The patient is being admitted to inpatient status on the date of service of 05/06/2022. Hospital Course: Patient is 86-year-old male with history of dementia presented emergency depart with acute mental status change persistent abdominal pain is found to have infectious colitis with C diff, patient is moaning in the pain and is given morphine, patient blood pressure is soft patient has received 5 L of normal fluids urine output is very poor and patient blood pressure is not improved, discussed with the patient's daughters recommended comfort care for the patient and they have agreed and would like to discuss with hospice service, will discharge the patient and patient will be admitted under hospice Time Spent with Patient Time attestation: Total time spent providing and/or coordinating discharge services: Exam Narrative: Elderly frail in pain Patient is comfortable, NAD HEENT: eyes are clear and none icteric LUNGS: Normal respiratory effort ABD: Distended and tender Lower extremities: no edema SKIN: nonjaundiced Neuro: grossly intact confused. DS: Data Data Completed and Pending Labs on day of discharge: Labs from last 24 hours 05/07/22 05/07/22 05/07/22 10:25 06:58 06:45 WBC RBC Hgb Hct MCV MCH MCHC RDW Plt Count MPV Immature Gran % (Auto) Neut % (Auto) Lymph % (Auto) Mason % (Auto) Eos % (Auto) Baso % (Auto) Lymph # (Auto) Mason # (Auto) Eos # (Auto) Baso # (Auto) Abs Immat Gran (auto) Absolute Neuts (auto) Absolute Nucleated RBC Total Counted Neutrophils % (Manual) Band Neutrophils % Lymphocytes % (Manual) Nucleated RBC % Abs Neuts (Manual) Abs Lymphs (Manual) Platelet
[2022-05-07] MEDS: LORazepam INJ (*CRX) 2 MG/ML VIAL IV PUSH (17:53)
== END 2022-05-07 18:19 | disposition hospice, inpatient (51) | DRG 371 ==
LOC: ANHED 14:00 → ANHIMU 15:02
PROVIDERS: Internal Medicine; Nurse Practitioner; Admitting Provider Family Medicine; Emergency Provider Emergency Medicine; PCP Family Medicine Adolescent Medicine; Visit Provider Family Medicine
DX: A04.72 Enterocolitis due to Clostridium difficile, not specified as recurrent (principal); I26.99 Other pulmonary embolism without acute cor pulmonale; N17.9 Acute kidney failure, unspecified; D64.9 Anemia, unspecified; E86.0 Dehydration; E11.42 Type 2 diabetes mellitus with diabetic polyneuropathy; F03.90 Unspecified dementia, unspecified severity, without behavioral disturbance, psychotic disturbance, mood disturbance, and anxiety; F41.9 Anxiety disorder, unspecified; K21.9 Gastro-esophageal reflux disease without esophagitis; H35.30 Unspecified macular degeneration; I25.2 Old myocardial infarction; M19.90 Unspecified osteoarthritis, unspecified site; N40.0 Benign prostatic hyperplasia without lower urinary tract symptoms; Z86.73 Personal history of transient ischemic attack (TIA), and cerebral infarction without residual deficits; Z86.16 Personal history of COVID-19; Z98.41 Cataract extraction status, right eye; Z98.42 Cataract extraction status, left eye; Z90.49 Acquired absence of other specified parts of digestive tract; Z87.891 Personal history of nicotine dependence; Z79.01 Long term (current) use of anticoagulants; Z79.82 Long term (current) use of aspirin; Z79.02 Long term (current) use of antithrombotics/antiplatelets
CPT/HCPCS: 36415; 36600; 71045; 74176; 80053; 81001; 82274; 82805; 83605; 83615; 83690; 83735; 84443; 85025; 85610; 85730; 87040; 87045; 87269; 87272; 87427; 87493; 92610; 96361; 96365; 96375; 99285; A9270; J2060; J2270; J2543; J7030; J7120

== ENCOUNTER 2022-05-07 18:20 | HOS | payer OTHER, MEDICARE, SELFPAY ==
[2022-05-07] MEDS: MORPHINE SULFATE (*CRX) 2 MG/ML INJ IV PUSH ×2 (18:57→22:25)
[2022-05-07] MEDS: SCOPOLAMINE 1.5 MG PATCH TRANSDERM (19:47)
[2022-05-07] MEDS: LORazepam INJ (*CRX) 2 MG/ML VIAL IV PUSH ×2 (19:47→22:24)
[2022-05-08] MEDS: LORazepam INJ (*CRX) 2 MG/ML VIAL IV PUSH ×6 (03:14→23:36)
[2022-05-08] MEDS: MORPHINE SULFATE (*CRX) 2 MG/ML INJ IV PUSH ×4 (03:15→14:56)
[2022-05-08 08:00] VITALS: BP 69/39; PULSE 90; RESP 40; TEMP 36.2; O2SAT 95
[2022-05-08] MEDS: MORPHINE SULFATE (*CRX) 2 MG/ML INJ 4 MG IV PUSH ×4 (12:14→23:36)
[2022-05-08 13:41] VITALS: BP 68/35; PULSE 88; RESP 34; TEMP 36.1; O2SAT 95
--- NOTE | 2022-05-08 13:42 | PM.IMHP ---
H&P: HPI History of Present Illness Date/Time: 05/08/22 13:42 Chief Complaint: AMS C diff colitis Narrative: Patient is 86-year-old male with history of dementia presented emergency depart with acute mental status change persistent abdominal pain is found to have infectious colitis with C diff, patient is moaning in the pain and is given morphine, patient blood pressure is soft patient has received 5 L of normal fluids urine output is very poor and patient blood pressure is not improved, discussed with the patient's daughters recommended comfort care for the patient and they have agreed and would like to discuss with hospice service, will discharge the patient and patient will be admitted under hospice Patient is admitted under the hospice care, comfort measure protocol is in place will continue to monitor PMFSH Past Medical History Medical History (Updated 05/08/22 @ 13:59 by Cole Banuelos MD) Anxiety Arthritis Cerebrovascular accident (~08/2011) With dysphagia and dysarthria, resolved. Chronic anemia COVID-19 CVA (cerebral vascular accident) No residual DDD (degenerative disc disease) Gastroesophageal reflux disease H/O blood clots History of non-ST elevation myocardial infarction (NSTEMI) 01/2021 Kidney stone Kidney stones Macular degeneration Seasonal allergies Ureteral stone Weakness Surgical History Surgical History (Updated 05/06/22 @ 16:10 by Amy Valdes NP) H/O inguinal hernia repair Right inguinal hernia repair History of bilateral cataract extraction History of laparoscopic cholecystectomy (~01/2013) History of lumbar surgery Spinal surgery x3 History of repair of right rotator cuff (~05/1999) History of right inguinal hernia repair S/P rotator cuff repair Right rotator cuff repair Family History Family History Father Emphysema of lung Colon cancer Mother Heart disease Pacemaker Sibling Parkinson disease Social History Social History (Updated 05/06/22 @ 17:45 by Amy Valdes NP) Social History: He resides at [facility]. He served in the as a young man. 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 He smoked 2 to 3 packs of cigarettes per day for about 40 years and quit in 1988. He denies alcohol and illicit substance use. His daughter, Leonarda Isbell, is his healthcare power of corporate associate attorney and he wishes to be a full code. Code status full code Smoking packs per day: 3 Smoking cigarettes per day: 60.0 Years smoked: 38 Smoking pack-years: 114.00 Smoking status: Former smoker Tobacco type: cigarettes Alcohol intake: never Substance use: never Substance use type: does not use Lack of Transportation: No Lack of Food: Never True Current Housing: I Have Housing Concerned About Future Housing: No Difficulty Paying Gas/Electric Bills: No Difficulty Paying for Meds: No Currently Unemployed: No Education: High School Diploma/GED Difficulty w/ Childcare or Family Care: No Living arrangements: alone Occupation/Education: retired Gender identity (if verbalized by the patient): Male Spiritual care concerns: Yes Agree to blood products: Yes Meds Home Medications and Allergies Home Medications Medication Instructions Recorded Confirmed Type omega-3 fatty acids 1,000 mg PO DAILY 05/25/21 05/06/22 History fenofibrate 160 mg tablet 160 mg PO DAILY #30 ea 03/26/22 05/06/22 Rx omeprazole 40 mg capsule,delayed 40 mg PO DAILY #30 ea 03/26/22 05/06/22 Rx release oxybutynin chloride 15 mg 15 mg PO DAILY #30 ea 03/26/22 05/06/22 Rx tablet,extended release 24 hr amlodipine 5 mg-benazepril 10 mg 1 cap PO DAILY 04/23/22 05/06/22 History capsule (Lotrel) clopidogrel 75 mg tablet (Plavix) 75 mg PO DAILY 04/23/22 05/06/22 History famotidine 20 mg tablet (Acid 20 mg PO BID 04/23/22 05/06/22 H
--- NOTE | 2022-05-08 14:16 | PC.NURSE ---
This patient, Arnaldo Rowan, was transferred to [facility] on 05/08/22 at 1330. Personal belongings sent with patient. Appropriate documentation sent with patient.
[2022-05-08 18:20] VITALS: BMI 21.8
[2022-05-08 20:00] VITALS: BP 78/41; PULSE 87; RESP 26; TEMP 36.4; O2SAT 91
[2022-05-09] MEDS: LORazepam INJ (*CRX) 2 MG/ML VIAL IV PUSH ×3 (02:35→11:40)
[2022-05-09] MEDS: MORPHINE SULFATE (*CRX) 2 MG/ML INJ 4 MG IV PUSH ×3 (03:48→11:40)
[2022-05-09 08:00] VITALS: RESP 26
[2022-05-09 10:45] VITALS: BP 68/36; RESP 24; TEMP 36.2
--- NOTE | 2022-05-09 11:06 | PM.IMPN ---
Progress Note: A&P Assessment and Plan (1) Hospice care patient: Code(s): Z51.5 - Encounter for palliative care Status: Acute Assessment and Plan: Patient is 86-year-old male with history of dementia presented emergency depart with acute mental status change persistent abdominal pain is found to have infectious colitis with C diff, patient is moaning in the pain and is given morphine, patient blood pressure is soft patient has received 5 L of normal fluids urine output is very poor and patient blood pressure is not improved, discussed with the patient's daughters recommended comfort care for the patient and they have agreed and would like to discuss with hospice service, will discharge the patient and patient will be admitted under hospice Patient is admitted under the hospice care, comfort measure protocol is in place will continue to monitor 05/09/2022 interval history: patient remains comfortable, his daughter is present in the room talking with him. will continue to moitor. Subjective Date/time seen: 05/09/22 11:06 Patient is 86-year-old male with history of dementia presented emergency depart with acute mental status change persistent abdominal pain is found to have infectious colitis with C diff, patient is moaning in the pain and is given morphine, patient blood pressure is soft patient has received 5 L of normal fluids urine output is very poor and patient blood pressure is not improved, discussed with the patient's daughters recommended comfort care for the patient and they have agreed and would like to discuss with hospice service, will discharge the patient and patient will be admitted under hospice Patient is admitted under the hospice care, comfort measure protocol is in place will continue to monitor 05/09/2022 interval history: patient remains comfortable, his daughter is present in the room talking with him. will continue to moitor. Review of Systems Review of Systems: ROS unobtainable: Yes unobtainable due to medical condition Exam Narrative: Patient is comfortable, NAD HEENT: eyes are clear and none icteric LUNGS: Normal respiratory effort ABD: Distended Lower extremities: no edema SKIN: nonjaundiced Neuro: grossly intact confused. Objective Data Vital Signs Vital Signs: Vital Signs - 24 hr 05/08/22 13:41 05/08/22 20:00 05/08/22 20:00 Temperature 97.0 F L 97.5 F L Pulse Rate 88 87 Respiratory Rate 34 H 26 H Blood Pressure 68/35 L 78/41 L Pulse Oximetry 95 91 91 Oxygen Delivery Nasal Cannula Oxygen Flow Rate 2 05/09/22 08:00 05/09/22 10:45 Temperature 97.2 F L Pulse Rate Respiratory Rate 26 H 24 H Blood Pressure 68/36 L Pulse Oximetry Oxygen Delivery Nasal Cannula Oxygen Flow Rate 2 Intake/Output Intake/Output: Intake & Output 05/06/22 05/07/22 05/08/22 05/09/22 23:59 23:59 23:59 23:59 Intake Total 0 Output Total 50 Balance 0 -50 Meds/Results Medications: Active Medications Generic Name Dose Route Start Last Admin Trade Name Freq PRN Reason Stop Dose Admin Lorazepam 2 mg 05/07/22 18:30 Lorazepam Inj (*Crx) 2 Mg/Ml Vial IV PUSH Q2H PRN Restless Lorazepam 2 mg 05/07/22 19:00 05/09/22 06:07 Lorazepam Inj (*Crx) 2 Mg/Ml Vial IV PUSH 2 mg Q4H MAYITO Administration Morphine Sulfate 2 mg 05/07/22 18:32 05/08/22 14:56 Morphine Sulfate (*Crx) 2 Mg/Ml Inj IV PUSH 2 mg Q30M PRN Administration Shortness Of Breath Morphine Sulfate 4 mg 05/08/22 12:00 05/09/22 07:58 Morphine Sulfate (*Crx) 2 Mg/Ml Inj IV PUSH 4 mg Q4H MAYITO Administration Scopolamine 1.5 mg 05/07/22 18:50 05/07/22 19:47 Scopolamine 1.5 Mg Patch TRANSDERM 1.5 mg Q72HR MAYITO Administration
--- NOTE | 2022-05-10 13:53 | P.DN_ITS ---
Discharge Summary Date and Time Date of : 05/09/22 Provider Pronounced By: Desiree Arcos RN Probable Cause of Probable Cause of : Sepsis Summary Hospital Course: Patient is 86-year-old male with history of dementia presented emergency depart with acute mental status change persistent abdominal pain is found to have infectious colitis with C diff, patient is moaning in the pain and is given morphine, patient blood pressure is soft patient has received 5 L of normal fluids urine output is very poor and patient blood pressure is not improved, discussed with the patient's daughters recommended comfort care for the patient and they have agreed and would like to discuss with hospice service, will discharge the patient and patient will be admitted under hospice, patient . Additional Data Confirmation of as documented by pronouncing clinician: Pupillary Reflex, Palpable Pulses, Response to Stimuli, Heart Tones and Breath Sounds Name of Provider Notified: Dr Banuelos Time Provider Notified: 15:40 Provider Requests Autopsy: No Family Requests Autopsy: No Industrial Electrical Engineer Notified: Yes Date [facility] Notified of : 05/09/22 Time [facility] Notified of : 15:30
== END 2022-05-09 15:15 | disposition expired | DRG 951 ==
LOC: ANHIMU 18:28 → ANH2MED 05-08 13:31
PROVIDERS: Admitting Provider Family Medicine; PCP Family Medicine Adolescent Medicine; Visit Provider Family Medicine
DX: Z51.5 Encounter for palliative care (principal); A04.72 Enterocolitis due to Clostridium difficile, not specified as recurrent; F03.90 Unspecified dementia, unspecified severity, without behavioral disturbance, psychotic disturbance, mood disturbance, and anxiety
CPT/HCPCS: A9270; J2060; J2270